=== PATIENT | female | born 1950 | race Caucasian/White ===

== ENCOUNTER 2019-05-09 14:01 | Outpatient (RCR) | payer MEDICARE, SELFPAY ==
[2019-05-09 14:27] LABS: INR 2.9; Prothrombin Time 29.2 Seconds (9.64-11.0)
== END 2019-08-07 23:59 | disposition home or self-care (01) ==
LOC: CHSLAB 14:01
PROVIDERS: PCP Internal Medicine; Visit Provider Internal Medicine
DX: I48.91 Unspecified atrial fibrillation (principal)
CPT/HCPCS: 36415; 85610

== ENCOUNTER 2020-09-27 10:01 | Outpatient (RCR) | payer MEDICARE, SELFPAY ==
[2020-09-27 10:34] LABS: INR 2.2; Prothrombin Time 22.4 Seconds (9.50-12.10)
== END 2020-12-26 23:59 | disposition home or self-care (01) ==
LOC: CHSLAB 10:01
PROVIDERS: PCP Internal Medicine; Visit Provider Internal Medicine
DX: I48.91 Unspecified atrial fibrillation (principal)
CPT/HCPCS: 36415; 85610

== ENCOUNTER 2020-10-02 09:44 | Outpatient (CLI) | payer OTHER, SELFPAY ==
--- NOTE | 2020-10-02 09:59 | ECHO_ITS ---
Patient Info Name: Cristine Quinonez Age: 70 years : 1950 Gender: Female Ht: 64 in Wt: 150 lbs BSA: 1.77 m2 HR: 66 bpm BP: 118 / 63 mmHg Heart Rhythm: Sinus Rhythm Technical Quality: Good Exam Date: 10/02/2020 10:01 AM Exam Location: [facility] Patient Status: Outpatient Admit Date: 10/02/2020 Staff Ordering Physician: Jaylen Sheth Flying [employer]i Instructor: Cnitia Clay RDCS Attending Provider: Jaylen Sheth Exam Type: CA echo doppler color flow Study Info Indications I49.9 - Cardiac arrhythmia, unspecified Complete two-dimensional, color flow and Doppler transthoracic echocardiogram is performed. Strain analysis performed. History/Risk Factors Hypertension: No Dyslipidemia: No Obesity: No Tobacco Use: Former DVT Treatment: Warfarin Deep Vein Thrombosis (DVT): None Frailty Scale (CSHA): 2: Well Summary 1. Complete two-dimensional, color flow and Doppler transthoracic echocardiogram is performed. 2. Left ventricular chamber dimension is normal. 3. Left ventricular systolic function is normal, estimated at 55-60%. 4. The left ventricular diastolic function is abnormal. 5. E/e' 44 is significantly elevated. 6. Global longitudinal strain is normal at -18.4%. 7. Left atrial chamber dimension is severely enlarged. 8. Right atrial chamber dimension is moderately enlarged. 9. There is mild aortic valve sclerosis. 10. There is mild aortic valve regurgitation. 11. The mitral valve has moderately calcified annulus. 12. There appears to be mild-moderate mitral valve stenosis by visual estimation and turbulent flow. However, valve area by PHT or VTI or mean gradients were not checked. 13. There is mild mitral valve regurgitation. 14. There is mild tricuspid valve regurgitation. 15. Mild pulmonary hypertension, estimated pulmonary arterial systolic pressure is 40 mmHg. Left Ventricle E/e' 44 is significantly elevated. Global longitudinal strain is normal at -18.4%. Left ventricular chamber dimension is normal. Left ventricular systolic function is normal, estimated at 55-60%. The left ventricular diastolic function is abnormal. Right Ventricle Right ventricular systolic function is normal and with normal TAPSE 2.1 cm. Right ventricular chamber dimension is normal. Left Atria Left atrial chamber dimension is severely enlarged. Right Atria Right atrial chamber dimension is moderately enlarged. Aortic Valve The aortic valve is trileaflet. There is mild aortic valve sclerosis. There is no aortic valve stenosis. There is mild aortic valve regurgitation. Pulmonic Valve There is no pulmonic regurgitation. Mitral Valve The mitral valve has moderately calcified annulus. There appears to be mild-moderate mitral valve stenosis by visual estimation and turbulent flow. However, valve area by PHT or VTI or mean gradients were not checked. Mitral valve with severely calcified leaflets. There is mild mitral valve regurgitation. Tricuspid Valve There is mild tricuspid valve regurgitation. Mild pulmonary hypertension, estimated pulmonary arterial systolic pressure is 40 mmHg. Pericardium/Pleural There is no pericardial effusion. Inferior Vena Cava Normal inferior vena cava with >50% collapse upon inspiration consistent with normal right atrial pressure, 5 mmHg. Aorta The aortic root size at the sinus of Valsalva is not well visualized. Left Ventricular Outflow Tract
== END 2020-10-02 09:45 | disposition home or self-care (01) ==
LOC: CHSIMG 09:45
PROVIDERS: PCP Internal Medicine
DX: I48.4 Atypical atrial flutter (principal)
CPT/HCPCS: 93306

== ENCOUNTER 2020-10-09 10:48 | Outpatient (CLI) | payer OTHER, SELFPAY ==
--- NOTE | ~2020-10-09 | MM_ITS ---
EXAMINATION: MM screening [facility] BI w marcy HISTORY: Screening TECHNIQUE: Craniocaudal and mediolateral oblique 3-D tomosynthesis images were obtained and synthetic 2-D images were generated. CAD analysis was submitted and interpreted. COMPARISON: Comparison to multiple prior studies sequentially, with oldest reviewed study dated 12/28. BREAST PARENCHYMAL COMPOSITION: Breast composed of scattered areas of fibroglandular density FINDINGS: There are benign bilateral breast calcifications. There is no evidence of suspicious mass, calcification, or architectural distortion to suggest malignancy in either breast. There has been no suspicious interval change. IMPRESSION: 1. No mammographic evidence of malignancy. 2. Recommend routine screening mammography in one year. BI-RADS Category 2: Benign finding(s). Reviewed, dictated and finalized at location A.
--- NOTE | ~2020-10-09 | DEXA_ITS ---
Bone Density Report Name: Cristine Quinonez Age: 70 Sex: Female Ethnicity: White Date of : 1950 Indication: postmenopausal; screening for osteoporosis; height loss; Referring Provider: Jan Nicole Study: Bone densitometry was performed. Exam Date: October 09, 2020 Accession number: [id number] Bone Density: Region BMD T-score Z-score Classification AP Spine(L1-L4) 0.972 -0.7 1.4 Normal Femoral Neck (Left) 0.640 -1.9 -0.1 Osteopenia Total Hip (Left) 0.694 -2.0 -0.6 Osteopenia Femoral Neck (Right) 0.604 -2.2 -0.4 Osteopenia Total Hip (Right) 0.665 -2.3 -0.8 Osteopenia Femoral Neck Mean 0.622 -2.0 -0.3 Osteopenia Total Hip Mean 0.680 -2.2 -0.7 Osteopenia World Health Organization criteria for BMD impression classify patients as: Normal (T-score at or above -1.0), Osteopenia (T-score between -1.0 and -2.5), or Osteoporosis (T-score at or below -2.5). 10-year Fracture Risk(1): Major Osteoporotic Fracture 12% Hip Fracture 2.4% Reported Risk Factors: [place] (), Neck BMD=0.604, BMI=28.0 (1) FRAX(R) Version 3.08. Fracture probability calculated for an untreated patient. Fracture probability may be lower if the patient has received treatment. Previous Exams: Region Exam Age BMD T-score BMD Change BMD Change Date g/cm2 vs Baseline vs Previous AP Spine (L1-L4) 10/09/2020 70 0.972 -0.7 -0.080 (-7.6%) -0.155 (-13.8% 11/23/2014 64 1.127 0.7 0.075 (7.1%)* 0.075 (7.1%)* 03/16/2008 57 1.052 0.0 Total Hip(Left) 10/09/2020 70 0.694 -2.0 -0.253 (-26.7% -0.203 (-22.6% 11/23/2014 64 0.897 -0.4 -0.051 (-5.3%) -0.051 (-5.3%) 03/16/2008 57 0.948 0.0 Total Hip(Right) 10/09/2020 70 0.665 -2.3 -0.202 (-23.3% -0.202 (-23.3% 03/16/2008 57 0.867 -0.6 *Denotes significance at 95% confidence level, LSC for AP Spine = 0.022 g/cm2, LSC for Total Hip = 0.027 g/cm2 # Denotes dissimilar scan types or analysis methods Clinical Information Provided by Patient: Patient maximum height was 63 No regular weight bearing exercise Does not regularly consume dairy products Drinks caffeinated beverages Onset of menses at age 13 Number of children 2 Impression: The patient has low bone mass, based on the Right Total Hip T-score. No significant bone loss was observed. Discussion: BONE DENSITY IS LOW AT ONE OR MORE SKELETAL SITES. This patient's lowest T-score is low at one or more ske
[2020-10-09 11:00] LABS: Hematocrit 43.1 % (35.0-42.0); Mean Corpuscular HGB Conc 34.8 g/dL (32.0-36.0); Mean Corpuscular Hemoglobin 31.8 pg (27.0-31.0); Mean Corpuscular Volume 91.3 fL (78.0-102.0); Mean Platelet Volume 9.8 fl (9.2-11.8); Platelet Count Result 302 K/mm3 (150-420); Red Blood Count 4.72 M/mm3 (4.20-5.40); Red Cell Distribution Width 12.1 % (11.6-14.4)
[2020-10-09 11:13] LABS: INR 1.9; Prothrombin Time 19.4 Seconds (9.50-12.10)
[2020-10-09 11:51] LABS: Band Neutrophils Percent 0 % (0-6); Basophils Percent Manual 0 % (0-1); Eosinophils Absolute Manual 0.22 K/mm3 (0.02-0.5); Eosinophils Percent Manual 2 % (1-6); Lymphocytes Absolute Manual 3.19 K/mm3 (1.1-4.5); Lymphocytes Percent Manual 29 % (18-44); Monocytes Absolute Manual 1.87 K/mm3 (0.1-0.90); Monocytes Percent Manual 17 % (3-9); Neutrophils Absolute Manual 5.72 K/mm3 (1.7-7.2); Neutrophils Percent Manual 52 % (46-73); Platelet Estimate Adequate (Adequate); Total Cells Counted 100
[2020-10-09 11:54] LABS: Alanine Aminotransferase 22 U/L (14-59); Albumin Level 3.7 g/dL (3.4-5.0); Alkaline Phosphatase 125 U/L (46-116); Anion Gap 13 mmol/L (8-16); Aspartate Amino Transferase 22 U/L (15-37); Bilirubin,Total 1.2 mg/dL (0.00-1.00); Blood Urea Nitrogen 14 mg/dL (7-18); Carbon Dioxide 26 mmol/L (21-32); Chloride 100 mmol/L (98-108); Estimated Glomerular Filt Rate 54; Glucose 95 mg/dL (70-99); Osmolality Calculated 288 mOsm/kg (285-295); Potassium 4.3 mmol/L (3.5-5.1); Sodium 139 mmol/L (136-145); Thyroid Stimulating Hormone 0.63 uIU/mL (0.36-3.74); Total Protein 7.3 g/dL (6.4-8.2)
== END 2020-10-09 10:49 | disposition home or self-care (01) ==
PROVIDERS: PCP Internal Medicine; Visit Provider Internal Medicine
DX: I48.91 Unspecified atrial fibrillation (principal); Z79.01 Long term (current) use of anticoagulants; Z12.31 Encounter for screening mammogram for malignant neoplasm of breast; M81.0 Age-related osteoporosis without current pathological fracture
CPT/HCPCS: 36415; 77063; 77067; 77080; 80053; 83735; 84443; 85025; 85610

== ENCOUNTER 2021-09-26 15:41 | Outpatient (RCR) | payer MEDICARE, SELFPAY ==
[2021-09-26 16:22] LABS: INR 1.9; Prothrombin Time 19.6 Seconds (9.50-12.10)
== END 2021-12-25 23:59 | disposition home or self-care (01) ==
LOC: CHSLAB 15:41
PROVIDERS: PCP Internal Medicine; Visit Provider Internal Medicine
DX: Z79.01 Long term (current) use of anticoagulants (principal)
CPT/HCPCS: 36415; 85610

== ENCOUNTER 2021-10-10 12:53 | Outpatient (CLI) | payer MEDICARE, SELFPAY ==
--- NOTE | ~2021-10-10 | MM_ITS ---
EXAMINATION: MM screening [facility] BI w [facility]cy HISTORY: Screening TECHNIQUE: Craniocaudal and mediolateral oblique 3-D tomosynthesis images were obtained and synthetic 2-D images were generated. CAD analysis was submitted and interpreted. COMPARISON: Comparison to multiple prior studies sequentially, with oldest reviewed study dated 12/28. BREAST PARENCHYMAL COMPOSITION: Breast composed of scattered areas of fibroglandular density FINDINGS: There are benign bilateral breast calcifications. There is no evidence of suspicious mass, calcification, or architectural distortion to suggest malignancy in either breast. There has been no suspicious interval change. IMPRESSION: 1. No mammographic evidence of malignancy. 2. Recommend routine screening mammography in one year. BI-RADS Category 1: Negative Reviewed, dictated and finalized at location A.
== END 2021-10-10 12:54 | disposition home or self-care (01) ==
LOC: CHSIMG 12:55
PROVIDERS: PCP Internal Medicine; Visit Provider Internal Medicine
DX: Z12.31 Encounter for screening mammogram for malignant neoplasm of breast (principal)
CPT/HCPCS: 77063; 77067

== ENCOUNTER 2022-03-13 12:20 | Outpatient (CLI) | payer MEDICARE, SELFPAY ==
--- NOTE | 2022-03-13 12:42 | ECG_ITS ---
Measurements Intervals [place] Rate: 76 P: 85 MI: 204 QRS: -76 QRSD: 140 T: 22 QT: 455 QTc: 515 Interpretive Statements SINUS RHYTHM RIGHT BUNDLE BRANCH BLOCK [120+ ms QRS DURATION, UPRIGHT V1, 40+ ms S IN I/aVL/V4/V5/V6] LEFT ANTERIOR FASCICULAR BLOCK [QRS AXIS <= -45, QR IN I, RS IN II] ABNORMAL ECG NO PREVIOUS ECG AVAILABLE FOR COMPARISON Electronically Signed On 03-13-2022 15:10:11 TRANSCRIPTION SPECIALIST by Shaheed Evans M.D.
[2022-03-13 12:54] LABS: INR 3.8; Prothrombin Time 37.4 Seconds (9.50-12.10)
== END 2022-03-13 12:21 | disposition home or self-care (01) ==
PROVIDERS: PCP Internal Medicine
DX: Z79.01 Long term (current) use of anticoagulants (principal); Z79.899 Other long term (current) drug therapy
CPT/HCPCS: 36415; 85610; 93005

== ENCOUNTER 2022-05-20 12:11 | Emergency (ER) | payer MEDICARE, SELFPAY ==
[2022-05-20] VITALS (48 sets, daily range): BP systolic 84–130; BP diastolic 55–102; PULSE 101–179; RESP 14–25; TEMP 36.3–37.1; O2SAT 95–100
--- NOTE | ~2022-05-20 | XR_ITS ---
EXAMINATION: XR chest 1V portable DATE: 05/20/2022 12:39 INDICATION: Shortness of breath. TECHNIQUE: A single frontal view of the chest was obtained. COMPARISON: Chest 2 views 05/06/2018 FINDINGS: There is a small right pleural effusion. There are airspace opacities at right lung base. T here is interstitial pattern, consistent with pulmonary edema. No pneumothorax. Cardiomegaly is noted . IMPRESSION: 1. Mild pulmonary edema. 2. Small right pleural effusion. 3. Airspace opacities at right lung base, consistent with atelectasis versus pneumonia. 4. Cardiomegaly. Reviewed, dictated and finalized at location A. UITMENT COORDINATOR IMPRESSION: 1. Mild pulmonary edema. 2. Small right pleural effusion. 3. Airspace opacities at right lung base, consistent with atelectasis versus pn eumonia. 4. Cardiomegaly.
--- NOTE | 2022-05-20 12:15 | ED.ARRPALP ---
HPI - Arrhythmia/Palpitations General Chief Complaint: Arrhythmia/Palpitations Stated Complaint: rapid heart rate Time Seen by Provider: 05/20/22 12:14 Source: patient Mode of arrival: ambulatory Limitations: no limitations History of Present Illness HPI narrative: 72-year-old female with a history of hereditary spherocytosis status post splenectomy, mitral stenosis secondary to rheumatic heart disease, status post percutaneous balloon mitral valvuloplasty in 2010, COPD, sleep apnea, depression,atrial fibrillation on Coumadin Status post multiple cardioversions, HFrEF with an EF of 40-45%, was transferred from the PCPs office for -- palpitation with a heart rate of 170. She was noted to have atrial fibrillation with rapid ventricular rate -- worsening shortness of breath over the past few days -- bilateral leg swelling denied any chest pain. No fever. MD complaint: rapid heart beat Onset (ago): day(s) Duration: constant Severity: moderate Context: occurred during rest Arrhythmia history: atrial fibrillation Associated symptoms: denies other symptoms Related Data Home Medications Medication Instructions Recorded Confirmed dofetilide 250 mcg capsule 250 mcg PO BID 05/20/22 05/20/22 metoprolol succinate 50 mg 50 mg PO BID 05/20/22 05/20/22 tablet,extended release 24 hr warfarin 1 mg tablet 0.5 mg PO HS 05/20/22 05/20/22 warfarin 4 mg tablet 4 mg PO HS 05/20/22 05/20/22 Allergies Allergy/AdvReac Type Severity Reaction Status Date / Time No Known Allergies Allergy Verified 05/20/22 12:31 Review of Systems Review of Systems: All systems reviewed & are unremarkable except as noted in HPI and below Constitutional: Constitutional: Reports as per HPI and Reports no additional constitutional complaints Eyes: Eyes: Reports as per HPI and Reports no additional eye complaints ENT: Reports system reviewed and no additional complaints, except as documented and Reports as per HPI Cardiovascular: Cardiovascular: Reports as per HPI, Reports no additional cardiovascular complaints and Reports rapid heart rate Respiratory: Respiratory: Reports as per HPI, Reports no additional respiratory complaints and Reports dyspnea Gastrointestinal: Gastrointestinal: Reports as per HPI and Reports no additional gastrointestinal complaints Genitourinary: Genitourinary: Reports no additional female genitourinary complaints and Reports as per HPI Musculoskeletal: Musculoskeletal: Reports no additional musculoskeletal complaints and Reports as per HPI Integumentary/Breasts: Skin/Breast: Reports system reviewed and no additional complaints, except as docu and Reports as per HPI Neurologic: Reports system reviewed and no additional complaints, except as documented and Reports as per HPI Psychiatric: Psychiatric: Reports no additional psychiatric complaints and Reports as per HPI Endocrine: Endocrine: Reports no additional endocrine complaints and Reports as per HPI Hematologic/Lymphatic: Hematologic/Lymphatic: Reports no additional hematologic/lymphatic complaints and Reports as per HPI Allergic/Immunologic: Allergic/Immunologic: Reports no additional allergic/immunologic complaints and Reports as per HPI [facility] Past Medical History Medical History Atrial fibrillation Surgical History Surgical History H/O splenectomy Exam Narrative: hypotensive with a systolic blood pressure of 76 and heart rate of 160. Const: General: ill appearing Orientation/consciousness: patient oriented x3 Limitations: no limitations HENMT: Head: normal to inspection Ears: external ears normal Face/Nose/Sinus: Normal external nose present Face and sinus: normal facial exam Mouth: Yes Normal oral and palatal mucosa present Throat: posterior oropharynx normal Eyes: Conjunctivae: conjunctivae normal Pupils: Equal, round and reactive pupi
--- NOTE | 2022-05-20 12:26 | ECG_ITS ---
Measurements Intervals [place] Rate: 163 P: [place]: 0 QRS: -76 QRSD: 130 T: 80 QT: 298 QTc: 492 Interpretive Statements ATRIAL FIBRILLATION WITH RAPID VENTRICULAR RESPONSE LEFT AXIS DEVIATION RIGHT BUNDLE BRANCH BLOCK LATERAL ST ABNORMALITY CONSIDER ISCHEMIA ABNORMAL ECG COMPARED TO ECG 03/13/2022 12:42:33 ATRIAL FIBRILLATION NOW PRESENT Electronically Signed On 05-20-2022 14:38:13 MASTER POLICE DETECTIVE by Ravi Becker M.D.
[2022-05-20] MEDS: AMIODARONE 150 MG/D5W 100 ML 150 MG/100 ML BAG 600 MG IV CONT (12:32)
[2022-05-20 12:36] LABS: Basophils Absolute Auto 0.05 K/mm3 (0.00-0.10); Basophils Percent Auto 0.6 % (0.0-1.0); Eosinophils Absolute Auto 0.03 K/mm3 (0.02-0.50); Eosinophils Percent Auto 0.4 % (1.0-6.0); Immature Granulocyte Absolute 0.04 K/mm3 (0.00-0.00); Immature Granulocyte Percent A 0.5 % (0.0-0.0); Lymphocytes Absolute Auto 1.95 K/mm3 (1.10-4.50); Lymphocytes Percent Auto 24.3 % (18.0-42.0); Mean Corpuscular HGB Conc 32.6 g/dL (32.0-36.0); Mean Corpuscular Hemoglobin 33.1 pg (27.0-31.0); Mean Corpuscular Volume 101.7 fL (78.0-102.0); Mean Platelet Volume 10.8 fl (9.2-11.8); Monocytes Percent Auto 12.5 % (2.0-11.0); Neutrophils Absolute Auto 4.9 K/mm3 (1.7-7.2); Neutrophils Percent Auto 61.7 % (50.0-70.0); Nucleated Red Blood Cells Absolute Auto 0.02 K/mm3 (0.00-0.00); Nucleated Red Blood Cells Perc 0.2 % (0-0.0); Platelet Count Result 235 K/mm3 (150-420); Red Blood Count 4.23 M/mm3 (4.20-5.40); Red Cell Distribution Width 15.5 % (11.6-14.4)
[2022-05-20 12:50] LABS: Lactic Acid Reflex 4.7 mmol/L (0.4-2.0)
[2022-05-20 12:52] LABS: Partial Thromboplastin Time 39.6 SEC (23.90-30.70); Prothrombin Time 70.2 Seconds (9.50-12.10)
[2022-05-20 12:53] LABS: INR 7.5
[2022-05-20 12:56] LABS: Alanine Aminotransferase 230 U/L (14-59); Alkaline Phosphatase 111 U/L (46-116); Anion Gap 10 mmol/L (8-16); Aspartate Amino Transferase 209 U/L (15-37); Bilirubin,Total 2.1 mg/dL (0.00-1.00); Blood Urea Nitrogen 19 mg/dL (7-18); Calcium 8.4 mg/dL (8.5-10.1); Carbon Dioxide 26 mmol/L (21-32); Chloride 101 mmol/L (98-108); Estimated CRCL calculation 31 ml/min; Estimated Glomerular Filt Rate 34; Glucose 150 mg/dL (70-99); NT Pro B Type Natriuretic Pept 8897 pg/mL (0-125); Osmolality Calculated 289 mOsm/kg (285-295); Potassium 3.7 mmol/L (3.5-5.1); Sodium 137 mmol/L (136-145); Thyroid Stimulating Hormone 1.13 uIU/mL (0.36-3.74); Total Protein 7.3 g/dL (6.4-8.2); Troponin I 9.7 ng/L (0.00-60.4)
[2022-05-20] MEDS: AMIODARONE 360 MG/D5W 200 ML 360 MG/200 ML BAG 33.33 MG IV CONT (13:11)
[2022-05-20] MEDS: DIGOXIN INJ 250 MCG/ML 2 ML AMP (*BKC) IV PUSH (13:53)
[2022-05-20 15:31] LABS: Reflex Lactic Acid Yes or No Add Lactic
[2022-05-20] MEDS: POTASSIUM CHLORIDE 20 MEQ TABLET PO (15:56)
[2022-05-20] MEDS: MAGNESIUM SULF 2 GM/WATER 50ML 2 GM/50 ML BAG IVPB (15:57)
--- NOTE | 2022-05-20 16:11 | PC.NURSE ---
pt resting per cot. family in and out throughout the day. call gonzalez in reach. pt denies pain .
[2022-05-20 16:31] LABS: Lactic Acid 2.2 mmol/L (0.4-2.0)
--- NOTE | 2022-05-26 12:11 | PC.NURSE ---
FINAL BLOOD CULTURE RESULTS X2 : NO GROWTH AFTER 5 DAYS
== END 2022-05-20 17:02 | disposition short-term general hospital (02) ==
PROVIDERS: Emergency Provider Internal Medicine Critical Care Medicine; PCP Internal Medicine
DX: I48.91 Unspecified atrial fibrillation (principal); R57.0 Cardiogenic shock; I50.9 Heart failure, unspecified; N17.9 Acute kidney failure, unspecified; K72.90 Hepatic failure, unspecified without coma; Z79.01 Long term (current) use of anticoagulants
CPT/HCPCS: 36415; 71045; 80053; 83605; 83880; 84443; 84484; 85025; 85610; 85730; 87040; 93005; 96365; 96366; 96367; 96375; 96376; 99285; A9270; J0282; J0696; J1160; J3475

== ENCOUNTER 2022-06-23 11:01 | Outpatient (CLI) | payer MEDICARE, SELFPAY ==
--- NOTE | ~2022-06-23 | CT_ITS ---
Non-contrast Head CT History: Cognitive impairment COMPARISON: 11/03/2018 Technique: Axial non-contrast imaging of the brain was performed. Dose reduction technique was used on this scan by utilizing automated exposure control and iterative reconstruction technique. The dose -length product (DLP) was 605.33 mGy-cm. Findings: There is no evidence of intracranial hemorrhage, mass lesion, or acute infarct. Brain par enchyma appears normal. The ventricles and subarachnoid spaces are normal in size. The calvarium ap pears normal. The visualized paranasal sinuses and mastoid air cells are clear. Impression: No significant abnormality seen. Reviewed, dictated and finalized at location . Impression: No significant abnormality seen.
== END 2022-06-23 11:02 | disposition home or self-care (01) ==
LOC: CHSIMG 11:03
PROVIDERS: PCP Internal Medicine; Visit Provider Internal Medicine
DX: G31.84 Mild cognitive impairment of uncertain or unknown etiology (principal)
CPT/HCPCS: 70450

== ENCOUNTER 2022-08-23 20:58 | Emergency (ER) | payer MEDICARE, SELFPAY ==
[2022-08-23] VITALS (19 sets, daily range): BP systolic 82–110; BP diastolic 52–91; PULSE 117–156; RESP 18–22; TEMP 37.1; O2SAT 90–95
--- NOTE | ~2022-08-23 | XR_ITS ---
Portable chest x-ray Comparison: None Clinical History: Shortness of breath Findings: Possible minimal bibasilar interstitial edema or minimal interstitial prominence related t o COPD. No consolidation or pleural effusion. Cardiomediastinal silhouette is stable. Bones and soft tissues are unremarkable. Impression: Minimal bibasilar interstitial prominence. Consider COPD or minimal interstitial edema. Reviewed, dictated and finalized at location . Impression: Minimal bibasilar interstitial prominence. Consider COPD or minimal interstitia l edema.
--- NOTE | 2022-08-23 21:06 | ECG_ITS ---
Measurements Intervals [place] Rate: 151 P: [place]: 0 QRS: -83 QRSD: 118 T: 0 QT: 284 QTc: 451 Interpretive Statements ATRIAL FIBRILLATION WITH RAPID VENTRICULAR RESPONSE LOW QRS VOLTAGE IN PRECORDIAL LEADS RIGHT BUNDLE BRANCH BLOCK LEFT ANTERIOR FASCICULAR BLOCK BASELINE ARTIFACT- V2 ABNORMAL ECG COMPARED TO ECG 05/20/2022 12:29:51 Electronically Signed On 08-24-2022 6:40:11 CDT by Collin Wiggins D.O.
[2022-08-23] MEDS: SODIUM CHLORIDE 0.9% IV 1,000 ML 999 ML IV CONT ×2 (21:14→22:49)
--- NOTE | 2022-08-23 21:23 | ED.GENADULT ---
HPI - General Adult General Chief complaint: Unspecified Stated complaint: Shortness of Breath/Dyspnea Time Seen by Provider: 08/23/22 21:10 History of Present Illness HPI narrative: the patient is a 72-year-old woman with history of hereditary spherocytosis status post splenectomy, atrial fibrillation status post multiple cardioversions, rheumatic heart disease resulting in mitral stenosis, status post balloon dilation of the mitral valve in 2020, CHF, depression, obstructive sleep apnea. She was seen here 05/20/2022 with an episode of atrial fibrillation with rapid ventricular response and congestive heart failure with acute kidney injury. Ejection fraction 40%. He was transferred to [facility] where she was cardioverted. This is her most recent cardioversion. She is currently on Tikosyn diltiazem and digoxin as well as warfarin. She is due to undergo surgical mitral valve replacement next month. For the last week, the patient has been feeling weak and tired with fatigue. For the last 2-3 days she has had a cough productive of green sputum. Low-grade temperature 100.7? tonight, spontaneously defervesced upon arrival. Shortness of breath. No chest pain or palpitations. No wheezing. No chills or diaphoresis. No nausea or vomiting. No abdominal pain. No urinary symptoms. She has taken her medications and has not missed doses. She has NOT taken her evening medications (which include her daily warfarin dose, BID tikosyn dose, BID diltiazem dose). Related Data Home Medications Medication Instructions Recorded Confirmed Vitamin B-12 1 mg PO DAILY 08/23/22 08/23/22 digoxin 125 mcg (0.125 mg) tablet 125 mcg PO DAILY 08/23/22 08/23/22 diltiazem HCl 180 mg 180 mg PO BID 08/23/22 08/23/22 capsule,extended release 24 hr dofetilide 125 mcg capsule 125 mcg PO BID 08/23/22 08/23/22 duloxetine 20 mg capsule,delayed 20 mg PO DAILY 08/23/22 08/23/22 release furosemide 40 mg tablet 40 mg PO DAILY 08/23/22 08/23/22 magnesium oxide 400 mg PO BID 08/23/22 08/23/22 potassium chloride 20 mEq 20 meq PO DAILY 08/23/22 08/23/22 tablet,extended release(part/cryst) warfarin 5 mg tablet 2.5 mg PO DAILY 08/23/22 08/23/22 Allergies Allergy/AdvReac Type Severity Reaction Status Date / Time No Known Allergies Allergy Verified 05/20/22 12:31 Review of Systems Review of Systems: All systems reviewed & are unremarkable except as noted in HPI and below Constitutional: Constitutional: Denies chills, Denies excessive sweating, Reports fatigue, Reports fever(s), Denies headache(s), Reports malaise and Reports weakness Eyes: Eyes: Denies change in vision and Denies photophobia ENT: Denies dysphagia, Denies dizziness, Denies headache(s), Denies lip swelling, Denies nasal congestion, Denies sore throat and Denies tongue swelling Cardiovascular: Cardiovascular: Denies chest pain, Denies syncope, Denies rapid heart rate and Reports dyspnea Respiratory: Respiratory: Reports cough, Reports dyspnea and Reports wheezing Gastrointestinal: Gastrointestinal: Denies abdominal pain, Denies constipation, Denies dysphagia, Denies diarrhea, Denies nausea and Denies vomiting Genitourinary: Genitourinary: Denies hematuria, Denies urinary frequency, Denies dysuria and Denies urinary urgency Musculoskeletal: Musculoskeletal: Denies back pain, Denies myalgias, Denies arthralgias, Denies joint swelling and Denies numbness Integumentary/Breasts: Skin/Breast: Denies pruritus, Denies erythema and Denies rash Neurologic: Denies confusion, Denies dizziness, Denies syncope, Denies headache(s), Denies focal weakness, Denies numbness and Reports weakness Psychiatric: Psychiatric: Denies anxiety and Denies confusion Endocrine: Endocrine: Denies excessive sweating and Denies fatigue Hematologic/Lymphatic: Hematologic/Lymphatic: Denies easy bleeding and Denies easy bruising Allergic/Immunologic: Allergic/Immunologic: Denies lip swelling, Denies tongue swelling
[2022-08-23] MEDS: dilTIAZem HCl INJ 25 MG/5 ML VIAL 5 MG IV PUSH (21:37)
[2022-08-23] MEDS: dilTIAZem 100 MG/100 ML 100 MG/100 ML BAG IV CONT (21:41)
[2022-08-23] MEDS: MAGNESIUM SULF 2 GM/WATER 50ML 2 GM/50 ML BAG IVPB (21:41)
[2022-08-23 22:17] LABS: Hematocrit 39.7 % (35.0-42.0); Hemoglobin 13.7 g/dL (11.7-13.8); Mean Corpuscular HGB Conc 34.5 g/dL (32.0-36.0); Mean Corpuscular Hemoglobin 31.1 pg (27.0-31.0); Mean Corpuscular Volume 90.2 fL (78.0-102.0); Mean Platelet Volume 10.4 fl (9.2-11.8); Platelet Count Result 410 K/mm3 (150-420); Red Cell Distribution Width 12.7 % (11.6-14.4)
[2022-08-23 22:34] LABS: White Blood Count 31.7 K/mm3 (4.8-10.8)
[2022-08-23 22:37] LABS: Lactic Acid Reflex 1.5 mmol/L (0.4-2.0)
--- NOTE | 2022-08-23 22:41 | PC.NURSE ---
Dr. Gaviria made aware of pt BP after titrating diltiazem up to 10mg/hr. Pt also c/o KIM. Verbal orders to decrease back to 5mg/hr and give the pt 1L NS as well as 650mg tylenol
[2022-08-23] MEDS: ACETAMINOPHEN 325 MG TABLET 650 MG PO (22:48)
[2022-08-23 22:49] LABS: Partial Thromboplastin Time 58.1 SEC (23.90-30.70); Prothrombin Time 38.9 Seconds (9.50-12.10)
[2022-08-23 22:50] LABS: Alanine Aminotransferase 14 U/L (14-59); Albumin Level 2.6 g/dL (3.4-5.0); Alkaline Phosphatase 99 U/L (46-116); Anion Gap 10 mmol/L (8-16); Aspartate Amino Transferase 19 U/L (15-37); Bilirubin,Total 1.5 mg/dL (0.00-1.00); Blood Urea Nitrogen 11 mg/dL (7-18); Calcium 8.1 mg/dL (8.5-10.1); Carbon Dioxide 26 mmol/L (21-32); Chloride 97 mmol/L (98-108); Estimated CRCL calculation 36 ml/min; Estimated Glomerular Filt Rate 47; Glucose 93 mg/dL (70-99); Magnesium 1.7 mg/dL (1.8-2.4); NT Pro B Type Natriuretic Pept 1552 pg/mL (0-125); Osmolality Calculated 275 mOsm/kg (285-295); Sodium 133 mmol/L (136-145); Total Protein 6.9 g/dL (6.4-8.2); Troponin I 9.7 ng/L (0.00-60.4)
[2022-08-23 22:51] LABS: CRP 14.3 mg/dL (0.0-0.9)
[2022-08-23 22:52] LABS: Thyroid Stimulating Hormone Reflex 0.25 u/IU/mL (0.36-3.74)
[2022-08-23 23:02] LABS: Influenza A QL RT-PCR Negative (Negative); Influenza B QL RT-PCR Negative (Negative); SARS-CoV-2 RNA PCR Negative (Negative)
[2022-08-23 23:03] LABS: RSV RNA, RT-PCR Negative (Negative)
[2022-08-23 23:12] LABS: Band Neutrophils Percent 0 % (0-6); Basophils Absolute Manual 0.31 K/mm3 (0-0.1); Basophils Percent Manual 1 % (0-1); Lymphocytes Absolute Manual 2.21 K/mm3 (1.1-4.5); Lymphocytes Percent Manual 7 % (18-44); Monocytes Absolute Manual 3.48 K/mm3 (0.1-0.90); Monocytes Percent Manual 11 % (3-9); Neutrophils Absolute Manual 25.67 K/mm3 (1.7-7.2); Neutrophils Percent Manual 81 % (46-73); Platelet Estimate Adequate (Adequate); Schistocytes None Seen (NORMAL); Total Cells Counted 100
[2022-08-23 23:25] LABS: Erythrocyte Sedimentation Rate 47 mm/hr (0-20)
[2022-08-23 23:47] LABS: Appearance Urine Clear (Clear); Bilirubin Urine Negative (Negative); Blood Urine Negative (Negative); Color Urine Yellow (Yellow); Glucose Urine UA Negative (Negative); Ketones Urine Negative (Negative); Leukocyte Esterase Ur 1+ LEU/UL (Negative); Nitrate Urine Negative (Negative); Protein Urine Negative (Negative); pH Urine 7.5 (5.0-8.0)
[2022-08-23] MEDS: CEFEPIME 2 GM/NS 50 ML 2 GM/50 ML BAG IVPB (23:48)
[2022-08-23] MEDS: AMIODARONE 150 MG/D5W 100 ML 150 MG/100 ML BAG 600 MG IV CONT (23:48)
[2022-08-23] MEDS: AMIODARONE 360 MG/D5W 200 ML 360 MG/200 ML BAG 33.33 MG IV CONT (23:49)
[2022-08-23 23:53] LABS: Add Urine Microscopic? YES
[2022-08-23 23:54] LABS: Bacteria Urine 1+ /hpf; Squamous Epithelial Cell Urine Many /hpf (Few)
[2022-08-24 00:01] VITALS: BP 93/66; PULSE 112; PULSE 114; RESP 19; O2SAT 92
[2022-08-24 00:15] VITALS: BP 93/66; PULSE 111; RESP 16; TEMP 36.7; O2SAT 92
[2022-08-24 00:31] VITALS: BP 101/52; PULSE 107; RESP 18; O2SAT 92
[2022-08-24] MEDS: SODIUM CHLORIDE 0.9% IV 1,000 ML 100 ML IV CONT (00:32)
[2022-08-24] MEDS: DOXYCYCLINE IV 100 MG in DEXTROSE 5% 100 ML IVPB (00:32)
[2022-08-24 01:28] VITALS: BP 110/68; PULSE 103; RESP 19; O2SAT 92
[2022-08-24 01:31] VITALS: BP 99/52; PULSE 113; RESP 20; O2SAT 92
--- NOTE | 2022-08-24 01:31 | PC.NURSE ---
[facility] called to inform that they are unable to transport the pt 2/2 having issues with their rig. [facility] called and agree to transport the pt.
[2022-08-24 02:10] VITALS: BP 99/56; PULSE 104; RESP 20; TEMP 36.4; O2SAT 93
--- NOTE | 2022-08-26 18:22 | PC.NURSE ---
abnormal blood culture results called to dr martínez. states aware and pt was admitted to [facility]. call to [facility] spoke with james at intake transfer center, instructed to fax to [phone] and she would scan into chart. fax completed as directed.
--- NOTE | 2022-09-24 11:24 | PC.NURSE ---
FINAL URINE CULTURE RESULTS: MIXED GENITAL ALFRED ISOLATED. NO ACTION NEEDED PER DR SORIANO.
== END 2022-08-24 02:12 | disposition short-term general hospital (02) ==
PROVIDERS: Emergency Provider Emergency Medicine; PCP Internal Medicine
DX: I48.20 Chronic atrial fibrillation, unspecified (principal); J18.9 Pneumonia, unspecified organism; E83.42 Hypomagnesemia; D68.32 Hemorrhagic disorder due to extrinsic circulating anticoagulants; I50.9 Heart failure, unspecified; Z79.01 Long term (current) use of anticoagulants; Z20.822 Contact with and (suspected) exposure to COVID-19; Z79.899 Other long term (current) drug therapy
CPT/HCPCS: 36415; 71045; 80053; 80162; 81001; 83605; 83735; 83880; 84439; 84443; 84484; 85025; 85610; 85652; 85730; 86140; 87040; 87086; 87088; 87147; 87637; 93005; 96361; 96365; 96366; 96367; 96375; 99285; A9270; J0282; J0692; J3475; J7030

== ENCOUNTER 2022-09-02 13:56 | Outpatient (CLI) | payer MEDICARE, SELFPAY ==
--- NOTE | ~2022-09-02 | XR_ITS ---
Clinical Indication: Pneumonia PA and lateral views of the chest: Comparison: 08/23/2022 Findings: The lungs are clear, without evidence of focal consolidation or pleural effusion. Probable COPD. Cardiomediastinal silhouette is within normal limits. Bones and soft tissues are unremarkable. Impression: Probable COPD. Clear lungs. Reviewed, dictated and finalized at location . Impression: Probable COPD. Clear lungs.
[2022-09-02 14:12] LABS: Basophils Absolute Auto 0.09 K/mm3 (0.00-0.10); Eosinophils Absolute Auto 0.08 K/mm3 (0.02-0.50); Eosinophils Percent Auto 0.9 % (1.0-6.0); Hematocrit 40.4 % (35.0-42.0); Hemoglobin 13.5 g/dL (11.7-13.8); Immature Granulocyte Absolute 0.02 K/mm3 (0.00-0.00); Immature Granulocyte Percent A 0.2 % (0.0-0.0); Lymphocytes Absolute Auto 3.68 K/mm3 (1.10-4.50); Lymphocytes Percent Auto 40.8 % (18.0-42.0); Mean Corpuscular HGB Conc 33.4 g/dL (32.0-36.0); Mean Corpuscular Hemoglobin 30.5 pg (27.0-31.0); Mean Corpuscular Volume 91.4 fL (78.0-102.0); Mean Platelet Volume 9.6 fl (9.2-11.8); Monocytes Absolute Auto 0.95 K/mm3 (0.10-0.90); Monocytes Percent Auto 10.5 % (2.0-11.0); Neutrophils Absolute Auto 4.2 K/mm3 (1.7-7.2); Neutrophils Percent Auto 46.6 % (50.0-70.0); Platelet Count Result 418 K/mm3 (150-420); Red Blood Count 4.42 M/mm3 (4.20-5.40); Red Cell Distribution Width 13.2 % (11.6-14.4)
[2022-09-02 14:25] LABS: INR 3.5; Prothrombin Time 34.7 Seconds (9.50-12.10)
[2022-09-02 15:10] LABS: Alanine Aminotransferase 17 U/L (14-59); Albumin Level 3.3 g/dL (3.4-5.0); Alkaline Phosphatase 108 U/L (46-116); Anion Gap 9 mmol/L (8-16); Aspartate Amino Transferase 20 U/L (15-37); Bilirubin,Total 0.7 mg/dL (0.00-1.00); Blood Urea Nitrogen 10 mg/dL (7-18); Calcium 9.3 mg/dL (8.5-10.1); Carbon Dioxide 29 mmol/L (21-32); Chloride 102 mmol/L (98-108); Estimated Glomerular Filt Rate 42; Glucose 107 mg/dL (70-99); NT Pro B Type Natriuretic Pept 2309 pg/mL (0-125); Osmolality Calculated 289 mOsm/kg (285-295); Potassium 4.4 mmol/L (3.5-5.1); Sodium 140 mmol/L (136-145); Total Protein 7.6 g/dL (6.4-8.2)
== END 2022-09-02 13:57 | disposition home or self-care (01) ==
LOC: CHSLAB 13:58
PROVIDERS: PCP Internal Medicine; Visit Provider Internal Medicine
DX: I48.91 Unspecified atrial fibrillation (principal); J18.9 Pneumonia, unspecified organism; Z79.01 Long term (current) use of anticoagulants; I50.9 Heart failure, unspecified
CPT/HCPCS: 36415; 71046; 80053; 83880; 85025; 85610

== ENCOUNTER 2022-10-09 12:55 | Outpatient (CLI) | payer MEDICARE, SELFPAY ==
[2022-10-09 13:32] LABS: INR 1.5; Prothrombin Time 15.6 Seconds (9.50-12.10)
== END 2022-10-09 12:56 | disposition home or self-care (01) ==
LOC: CHSLAB 13:00
PROVIDERS: PCP Internal Medicine
DX: I48.91 Unspecified atrial fibrillation (principal); R79.1 Abnormal coagulation profile; Z98.890 Other specified postprocedural states
CPT/HCPCS: 36415; 85610

== ENCOUNTER 2022-12-07 09:18 | Outpatient (RCR) | payer MEDICARE, SELFPAY ==
[2022-12-07 10:07] LABS: INR 3.4
== END 2022-12-07 09:19 | disposition home or self-care (01) ==
LOC: CHSLAB 09:18
PROVIDERS: PCP Internal Medicine
DX: Z51.81 Encounter for therapeutic drug level monitoring (principal); Z98.890 Other specified postprocedural states
CPT/HCPCS: 36415; 85610

== ENCOUNTER 2022-12-16 09:23 | Outpatient (RCR) | payer MEDICARE, SELFPAY ==
[2022-10-13 12:37] LABS: INR 2.3; Prothrombin Time 23.5 Seconds (9.50-12.10)
[2022-10-16 14:07] LABS: INR 2.5; Prothrombin Time 25.9 Seconds (9.50-12.10)
[2022-10-27 09:06] LABS: INR 1.7; Prothrombin Time 17.8 Seconds (9.50-12.10)
[2022-11-02 09:46] LABS: INR 2.3; Prothrombin Time 23.4 Seconds (9.50-12.10)
[2022-11-09 13:32] LABS: Prothrombin Time 57.2 Seconds (9.64-11.0)
[2022-11-09 13:48] LABS: INR 5.9
[2022-11-12 10:26] LABS: INR 1.5; Prothrombin Time 16.4 Seconds (9.50-12.10)
[2022-11-18 17:20] LABS: INR 1.9; Prothrombin Time 19.8 Seconds (9.50-12.10)
[2022-11-24 13:40] LABS: INR 1.9; Prothrombin Time 19.7 Seconds (9.50-12.10)
[2022-11-27 09:01] LABS: INR 2.4; Prothrombin Time 24.5 Seconds (9.50-12.10)
[2022-12-02 10:45] LABS: Prothrombin Time 30.3 Seconds (9.50-12.10)
[2022-12-16 10:59] LABS: INR 1.4; Prothrombin Time 14.6 Seconds (9.50-12.10)
== END 2023-01-11 23:59 | disposition home or self-care (01) ==
LOC: CHSLAB 09:23
PROVIDERS: PCP Internal Medicine
DX: Z48.89 Encounter for other specified surgical aftercare (principal); Z98.890 Other specified postprocedural states
CPT/HCPCS: 36415; 85610

== ENCOUNTER 2023-02-25 09:00 | Outpatient (CLI) | payer MEDICARE, SELFPAY ==
[2023-02-25 09:21] LABS: Basophils Percent Auto 1.2 % (0.0-1.0); Eosinophils Absolute Auto 0.12 K/mm3 (0.02-0.50); Eosinophils Percent Auto 1.4 % (1.0-6.0); Hematocrit 34.1 % (35.0-42.0); Hemoglobin 10.4 g/dL (11.7-13.8); Immature Granulocyte Absolute 0.02 K/mm3 (0.00-0.00); Immature Granulocyte Percent A 0.2 % (0.0-0.0); Lymphocytes Absolute Auto 2.28 K/mm3 (1.10-4.50); Lymphocytes Percent Auto 26.7 % (18.0-42.0); Mean Corpuscular HGB Conc 30.5 g/dL (32.0-36.0); Mean Corpuscular Hemoglobin 27.1 pg (27.0-31.0); Mean Corpuscular Volume 88.8 fL (78.0-102.0); Mean Platelet Volume 9.3 fl (9.2-11.8); Monocytes Absolute Auto 1.09 K/mm3 (0.10-0.90); Monocytes Percent Auto 12.8 % (2.0-11.0); Neutrophils Absolute Auto 4.9 K/mm3 (1.7-7.2); Neutrophils Percent Auto 57.7 % (50.0-70.0); Platelet Count Result 379 K/mm3 (150-420); Red Blood Count 3.84 M/mm3 (4.20-5.40); Red Cell Distribution Width 16.6 % (11.6-14.4); White Blood Count 8.5 K/mm3 (4.8-10.8)
[2023-02-25 09:33] LABS: Prothrombin Time 10.8 Seconds (9.50-12.10)
[2023-02-25 10:00] LABS: Alanine Aminotransferase 46 U/L (14-59); Albumin Level 3.1 g/dL (3.4-5.0); Alkaline Phosphatase 165 U/L (46-116); Anion Gap 7 mmol/L (8-16); Aspartate Amino Transferase 42 U/L (15-37); Bilirubin,Total 0.4 mg/dL (0.00-1.00); Blood Urea Nitrogen 18 mg/dL (7-18); Calcium 8.7 mg/dL (8.5-10.1); Carbon Dioxide 29 mmol/L (21-32); Chloride 101 mmol/L (98-108); Estimated Glomerular Filt Rate 41; Glucose 106 mg/dL (70-99); NT Pro B Type Natriuretic Pept 766 pg/mL (0-125); Osmolality Calculated 285 mOsm/kg (285-295); Potassium 3.9 mmol/L (3.5-5.1); Sodium 137 mmol/L (136-145); Total Protein 6.8 g/dL (6.4-8.2)
== END 2023-02-25 09:01 | disposition home or self-care (01) ==
PROVIDERS: PCP Internal Medicine; Visit Provider Internal Medicine
DX: I50.9 Heart failure, unspecified (principal); Z79.01 Long term (current) use of anticoagulants; Z98.890 Other specified postprocedural states
CPT/HCPCS: 36415; 80053; 83880; 85025; 85610

== ENCOUNTER 2023-02-27 11:49 | Outpatient (RCR) | payer MEDICARE, SELFPAY ==
[2023-02-27 13:07] LABS: Prothrombin Time 11.4 Seconds (9.50-12.10)
== END 2023-05-28 23:59 | disposition home or self-care (01) ==
LOC: CHSLAB 11:49
PROVIDERS: PCP Internal Medicine
DX: Z48.812 Encounter for surgical aftercare following surgery on the circulatory system (principal); Z98.890 Other specified postprocedural states
CPT/HCPCS: 36415; 85610

== ENCOUNTER 2023-03-17 09:30 | Outpatient (RCR) | payer MEDICARE, SELFPAY ==
--- NOTE | 2022-11-18 13:20 | PCCPR ---
1320 Pt arrived this afternoon for admission to phase 2 cardiac rehab. Placed on telemetry and noted HR in 140's with irregularly regular rhythm, report noted ectopic atrial tachycardia and RBB. assisted living executive director Dr. Wiggins notified, pt MD Dr. Kimberley Swanson sent EKG and notified. Dr. Swanson nurse recommended to call Dr. Ribera, patients electrophysiology manager cardiac for further recommendations. Call placed. Voicemail left with answering service. Call returned by nurse Lacy and states received EKG and will review with Dr. Ribera as soon as he is done with another patient and will call back with instruction.
--- NOTE | 2022-11-18 13:26 | ECG_ITS ---
Measurements Intervals [place] Rate: 130 P: 268 [place]: 181 QRS: -77 QRSD: 146 T: 81 QT: 343 QTc: 505 Interpretive Statements Atrial fibrillation with rapid ventricular response RIGHT BUNDLE BRANCH BLOCK [120+ ms QRS DURATION, UPRIGHT V1, 40+ ms S IN I/aVL/V4/V5/V6] LEFT AXIS DEVIATION ABNORMAL ECG Electronically Signed On 11-18-2022 15:34:35 CDT by Shaheed Evans M.D.
--- NOTE | 2022-11-18 14:15 | PCCPR ---
[address] return call from Dr[address] Ribera yet. Dr. Wiggins recommends that patient be seen in ER. Pt aware of recommendation, however, would like to wait 1 hour to hear back from Dr. Ribera, and if she doesn't hear back by 3:30pm, her daughter, Brinda (present and with patient), will bring her back to the ER. Pt discharged with daughter from cardiac rehab department at this time.
--- NOTE | 2022-11-25 09:40 | PCCPR ---
Addendum entered by Deepthi Adams RN 11/25/22 13:37: Patient released from department, daughter Brinda contacted and updated on patient status. Original Note: Medical release was received from Dr. Kimberley Swanson for patient to return to cardiac rehab today. Per Dr. Wiggins, pt allowed to participate if HR is WNL. Telemetry placed on pt arrival, pt noted to again be in Afib w/RVR with resting heart rate 140's - 150's. Pt reports feeling asymptomatic, I can't even tell that anything is different. Pt sat and rested and participated in education today. Monitored for 22 minutes. HR remained elevated. Pt arrhythmia being managed by Dr. Ribera and is scheduled for EDU cardioversion on 2022. Notification sent to Dr. Swanson. Will re-assess patient again on next scheduled visit, Wednesday.
== END 2023-03-17 13:59 | disposition home or self-care (01) ==
PROVIDERS: PCP Internal Medicine
DX: Z95.2 Presence of prosthetic heart valve (principal); I45.10 Unspecified right bundle-branch block
CPT/HCPCS: 36415; 85610; 93005; 93798

== ENCOUNTER 2023-05-25 09:30 | Outpatient (RCR) | payer SELFPAY | END 2023-06-07 08:31 | disposition home or self-care (01) | LOC: CHSCPRIII 09:30 | PROVIDERS: PCP Internal Medicine; Visit Provider Internal Medicine | DX: Z95.2 Presence of prosthetic heart valve (principal) | CPT/HCPCS: 99199 ==

== ENCOUNTER 2023-09-04 11:55 | Outpatient (CLI) | payer MEDICARE, SELFPAY ==
[2023-09-04 12:26] LABS: Prothrombin Time 11.2 Seconds (9.50-12.1)
== END 2023-09-04 11:56 | disposition home or self-care (01) ==
PROVIDERS: PCP Internal Medicine
DX: A04.8 Other specified bacterial intestinal infections (principal); Z98.890 Other specified postprocedural states
CPT/HCPCS: 36415; 85610

== ENCOUNTER 2023-09-09 10:29 | Outpatient (CLI) | payer MEDICARE, SELFPAY | END 2023-09-09 10:30 | disposition home or self-care (01) | LOC: CHSLAB 10:32 | PROVIDERS: PCP Internal Medicine | DX: A04.8 Other specified bacterial intestinal infections (principal) | CPT/HCPCS: 87338 ==

== ENCOUNTER 2024-05-22 11:32 | Outpatient (CLI) | payer MEDICARE, SELFPAY ==
--- OUTSIDE RECORDS SUMMARY | 2024-05-22 12:18 | XMS_ITS | Encounter Summary ---
Author Organization [facility] Address [address] [place] [address] Care Team Providers Care Teacher Of Gifted Students Name Role Phone Jan Nicole MD Primary Care Provider [phone] Sadie Ribera MD Unavailable Triston Posey MD Unavailable UnavailSangeeta Herr AGADAYDAY- Unavailable [phone] Bri Ugarte MD Unavailable Unavailabl Melina Garcia MD Unavailable Millie Vilchis NP Unavailable [phone] Encounter Details Date Type Department Care Team (Late st Contact Info) Description 09/10/2022 Prep for Procedure [facility] [address] [place] [address] Len Swanson MD [address] [place] [address] Social History Tobacco Use Types Packs/Day Years Used Date Smoking Tobacco: Former Cigarettes 0 - 2005 Smokeless Tobacco: Never Alcohol Use Standard Drinks/Week Comments Yes 0 (1 standard drink = 0.6 oz pur e alcohol) Humiliation, Afraid, Rape, and Kick questionnair e Answer Date Recorded Within the last year, have y ou been afraid of your partner or ex-partner? No 08/24/2022 Within the last year, have y ou been humiliated or emotionally abused in other ways by your partner or ex-partner? No Within the last year, have y ou been kicked, hit, slapped, or otherwise physically hurt by your partner or ex-partner? No 08/24/2022 Within the last year, have y ou been raped or forced to have any kind of sexual activity by your partner or ex-partner? No 08/24/2022 Social Connection and Isolat ion Panel [NHANES] Answer Date Recorded In a typical week, how many times do you talk on the phone with family, friends, or neighbors? More than three times a week 08/24/2022 How often do you get togethe r with friends or relatives? More than three times a week 08/24/2022 How often do you attend formerly [facility] or denominational services? 1 to 4 times per year 08/24/2022 Do you belong to any clubs o r organizations such as denominational groups, unions, fraternal or athletic groups, or school groups? No 08/24/2022 How often do you attend meet ings of the clubs or organizations you belong to? Never 08/24/2022 Are you , , di vorced, , never , or living with a partner? 08/24/2022 AUDIT-C Answer Date Recorded Q1: How often do you have a drink containing alc ohol? Monthly or less 08/24/2022 Q2: How many drinks containi ng alcohol do you have on a typical day when you are drinking? 1 or 2 08/24/2022 Q3: How often do you have si x or more drinks on one occasion? Never 08/24/2022 Overall Financial Resource Strain (CARDIA) Answe r Date Recorded How hard is it for you to pa y for the very basics like food, housing, medical care, and heating? Not hard at all 08/24/2022 [facility] [place] of Occupat ional Health - Occupational Stress Questionnaire Answer Date Recorded Do you feel stress - tense, restless, nervous, or anxious, or unable to sleep at night because your mind is troubled all the time - these days? Not at all 08/24/2022 Hunger Vital Sign Answer Date Recorded Within the past 12 months, y ou worried that your food would run out before you got the money to buy more. Never true 08/25/19 23 Within the past 12 months, t he food you bought just didn't last and you didn't have money to get more. Never true 08/24/2022 PRAPARE - Transportation Answer Date Re corded In the past 12 months, has l ack of transportation kept you from medical appointments or from getting medications? No 08/10 In the past 12 months, has l ack of transportation kept you from meetings, work, or from getting things needed for daily living? No 08/24/2022 Housing Stability Vital Sign Answer Kevin e Recorded In the last 12 months, was t here a time when you were not able to pay the mortgage or rent on time? No 08/24/2022 In the last 12 months, how many places have you lived? 1 08/24/2022 In the last 12 months, was t here a time when you did not have a steady place to sleep or slept in a [facility] (including now)? No 08/24/2022 Comments Unknown Sex and Gender Information Value Date Recorded Sex Assigned at Female 05/03/2024 7:48 AM TERRAZZO GRINDER Legal Sex Female 1:16 AM CDT Gender Identity Not on file Sexual Orientation Not on file Occupation Industry Job Start Date Job End Date Doesnt work Not on file Not on file Not on file Not on file Not on file Not on file Not on file COVID-19 Exposure Response Date Recorded In the last 10 days, have yo u been in contact with someone who was confirmed or suspected to have Coronavirus/COVID-19? No / Unsure 08/24/2022 3:33 AM CDT documented as of this encounter Functional Status * Are you deaf or do you have serious difficulty hearing Answer Date of Assessment Author Status No 08/24/2022 3:00 AM CDT Gabby Bess, RN Active * Are you blind or do you have serious difficulty seeing, even when wearing glasses? Answer Date of Assessment Author Status No 08/24/2022 3:00 AM CDT Gabby Bess, RN Active * Do you have serious difficulty walking or climbing stairs? Answer Date of Assessment Author Status No 08/24/2022 3:00 AM CDT Gabby Bess RN Active * Do you have difficulty dressing or bathing? Answer Date of Assessment Author Status No 08/24/2022 3:00 AM AURORAT Gabby Bess, RN Active * Because of a physical, mental, or emotional condition, do you have difficulty doing errands alone such as visiting a doctor's office or shopping? Answer Date of Assessment Author Status No 08/24/2022 3:00 AM Gabby Pineda, RN Active documented as of this encounter Mental Status * Because of a physical, mental, or emotional condition, do you have serious difficulty concentrating, remembering, or making decisions? Answer Entry Date Author Status No 08/24/2022 3:00 AM Gabby Pineda, RN Active documented in this encounter Plan of Treatment Upcoming Encounters Date Type Department Care Team (Late st Contact Info) Description 03/01/2025 1:15 PM TERRAZZO GRINDER Office Visit [facility] [address] [address] Melina Mclean MD [address] [place], [place] [phone] documented as of this encounter Goals Goal Patient Goal Type Associated Problems Recent Progress Patient-Stated? Author Safety Patient/family will have appropriate support at home upon discharge Lifestyle No Suyapa Godwin RN documented as of this encounter Visit Diagnoses Not on filedocumented in this encounter Care Teams Teacher Of Gifted Students Relationship Specialty Start Date End Date Jan Nicole MD [address] [place] [address] PCP - General INTERNAL MEDICINE 10/18/15 Sadie Ribera MD [address] [place] [address] CLINICAL CARDIAC ELECTROPHYSIOLOGY 10/18/15 Triston Posey MD [address] [place] [address] CARDIOVASCULAR DISEASE 10/18/[address] [facility] [facility] [address] [place] [phone] [employer] Operator NURSE PRACTITIONER 08/03/16 07/06/23 Bri Ugarte MD [address] [place] [phone] Consulting Physician CARDIOVASCULAR DISEASE 05/11/2307/05 Melina Mclean MD [address] [place] [address] Consulting Physician CARDIOVASCULAR DISEASE 07/07/23 Millie Vilchis NP [address] [place] [address] [address] [place] [address] Nurse Practitioner Nurse Practitioner Acute Care 05/15/24 documented as of this encounter
--- OUTSIDE RECORDS SUMMARY | 2024-05-22 12:18 | XMS_ITS | Encounter Summary ---
Author Organization [facility] Address [address] [place] [address] Care Team Providers Care Stagecraft Professor Name Role Phone Jan Nicole MD Primary Care Provider [phone] Sadie Ribera MD Unavailable Triston Posey MD Unavailable UnavailSangeeta Herr [facility] Unavailable [phone] Bri Ugarte MD Unavailable Unavailabl Melina Garcia MD Unavailable Millie Vilchis NP Unavailable [phone] Encounter Details Date Type Department Care Team (Late st Contact Info) Description 09/28/2022 Hospital Follow-up Call [facility] [address] [place] [address] Ana Wright, RN Social History Tobacco Use Types Packs/Day Years Used Date Smoking Tobacco: Every Day Cigarettes 1 55.1 Started: 1969 Smokeless Tobacco: Never Comments:Smoked from 1969 to 2005, restarted 2019 Alcohol Use Standard Drinks/Week Comments Yes 0 (1 standard drink = 0.6 oz pur e alcohol) Humiliation, Afraid, Rape, and Kick questionnair e Answer Date Recorded Within the last year, have y ou been afraid of your partner or ex-partner? No 09/21/2022 Within the last year, have y ou been humiliated or emotionally abused in other ways by your partner or ex-partner? No Within the last year, have y ou been kicked, hit, slapped, or otherwise physically hurt by your partner or ex-partner? No 09/21/2022 Within the last year, have y ou been raped or forced to have any kind of sexual activity by your partner or ex-partner? No 09/21/2022 Social Connection and Isolat ion Panel [NHANES] Answer Date Recorded In a typical week, how many times do you talk on the phone with family, friends, or neighbors? More than three times a week 08/24/2022 How often do you get togethe r with friends or relatives? More than three times a week 08/24/2022 How often do you attend chur ch or quaker services? 1 to 4 times per year 08/24/2022 Do you belong to any clubs o r organizations such as mandaeism groups, unions, fraternal or athletic groups, or [...] care, and heating? Not hard at all 09/21/2022 [facility] [place] of Occupat ional Health - Occupational Stress [...] the money to buy more. Never true 09/22/19 23 Within the past 12 months, t he food you bought just didn't last and you didn't have money to get more. Never true 09/21/2022 PRAPARE - Transportation Answer Date Re corded In the past 12 months, has l ack of transportation kept you from medical appointments or from getting medications? No 09/10 In the past 12 months, has l ack of transportation kept you from meetings, work, or from getting things needed for daily living? No 09/21/2022 Housing Stability Vital Sign Answer Kevin e Recorded In the last 12 months, was t here a time when you were not able to pay the mortgage or rent on time? No 09/21/2022 In the last 12 months, how many places have you lived? 0 09/21/2022 In the last 12 months, was t here a time when you did not have a steady place to sleep or slept in a [place] [facility] (including now)? No 09/21/2022 Comments Unknown Sex and Gender Information Value Date Recorded Sex Assigned at Female 05/03/2024 7:48 AM COMPLEX COMMERCIAL LITIGATION PARALEGAL Legal Sex Female 1:16 AM CDT Gender [...] suspected to have Coronavirus/COVID-19? No / Unsure 09/18/2022 5:24 AM CDT documented as of this encounter Functional Status * Are you deaf or do you have serious difficulty hearing Answer Date of Assessment Author Status No 09/18/2022 5:22 AM CDT Jumana Orona RN Active * Are you blind or do you have serious difficulty seeing, even when wearing glasses? Answer Date of Assessment Author Status No 09/18/2022 5:22 AM AUROART Jumana Orona RN Active * Do you have serious difficulty walking or climbing stairs? Answer Date of Assessment Author Status No 09/18/2022 5:22 AM AURORAT Jumana Orona RN Active * Do you have difficulty dressing or bathing? Answer Date of Assessment Author Status No 09/18/2022 5:22 AM Jumana Adams RN Active * Because of a physical, mental, or emotional condition, do you have difficulty doing errands alone such as visiting a doctor's office or shopping? Answer Date of Assessment Author Status No 09/18/2022 5:22 AM Jumana Adams RN Active documented as of this encounter Mental Status * Because of a physical, mental, or emotional condition, do you have serious difficulty concentrating, remembering, or making decisions? Answer Entry Date Author Status No 09/18/2022 5:22 AM Jumana Adams RN Active documented in this encounter Plan of Treatment Upcoming Encounters Date Type Department Care Team (Late st Contact Info) Description 03/01/2025 1:15 PM COMPLEX COMMERCIAL LITIGATION PARALEGAL Office Visit [facility] [address] [address] Melina Mclean MD [address] [place] [address] documented as of this encounter Goals Goal Patient Goal Type Associated Problems Recent Progress Patient-Stated? Author Safety Patient/family will have appropriate support at home upon discharge Lifestyle No Suyapa Godwin RN Safety Patient/family will have appropriate support at home upon discharge Lifestyle No Suyapa Godwin RN documented as of this encounter Visit Diagnoses Not on filedocumented in this encounter Care Teams Stagecraft Professor Relationship Specialty Start Date End Date Jan Nicole MD [address] [place] [address] PCP - General INTERNAL MEDICINE 10/18/15 Sadie Ribera MD [address] [place] [address] CLINICAL CARDIAC ELECTROPHYSIOLOGY 10/18/15 Triston Posey MD [address] [place] [phone] CARDIOVASCULAR DISEASE 10/18/15 Sangeeta Falcon, [facility] [address] [place] [phone] Frederick Chaperone NURSE PRACTITIONER 08/03/16 07/06/23 Bri Ugarte MD [address] [place] [phone] Consulting Physician CARDIOVASCULAR DISEASE 05/11/2307/05 Melina Mclean MD [address] [place] [address] Consulting Physician CARDIOVASCULAR DISEASE 07/07/23 Millie Vilchis NP [address] [place] [address] [address] [place] [address] Nurse Practitioner Nurse Practitioner Acute Care 05/15/24 documented as of this encounter
--- OUTSIDE RECORDS SUMMARY | 2024-05-22 12:18 | XMS_ITS | Encounter Summary ---
Author Organization [facility] Address [address] [place] [address] Care Team Providers Care Conduit Cleaner Name Role Phone Jan Nicole MD Primary Care Provider [phone] Sadie Ribera MD Unavailable Triston Posey MD Unavailable UnavailSangeeta Herr [facility] Unavailable [phone] Bri Ugarte MD Unavailable Unavailabl Melina Garcia MD Unavailable Millie Vilchis NP Unavailable [phone] Encounter Details Date Type Department Care Team (Late st Contact Info) Description 04/28/2016 Abstract [facility] [address] [place] [address] Sadie Ribera MD [address] [place] [address] Social History Tobacco Use Types Packs/Day Years Used Date Smoking Tobacco: Former Cigarettes Q uit: 2006 Smokeless Tobacco: Never Alcohol Use Standard Drinks/Week Comments No 0 (1 standard drink = 0.6 oz pur e alcohol) Comments Unknown Sex and Gender Information Value Date Recorded Sex Assigned at Female 05/03/2024 7:48 AM PRESIDENT [employer] Legal Sex Female 1:16 AM CDT Gender Identity Not on file Sexual Orientation Not on file Occupation Industry Job Start Date Job End Date Doesnt work Not on file Not on file Not on file documented as of this encounter Plan of Treatment Upcoming Encounters Date Type Department Care Team (Late st Contact Info) Description 03/01/2025 1:15 PM [employer]IDENT [employer] Office Visit [facility] [id number] [place] [phone] Melina Mclean MD [address] [place] [address] documented as of this encounter Procedures Procedure Name Priority Date/Time Associated Diagnosis Comments PT/INR (OUTSIDE LAB) Routine 03/25/2016 documented in this encounter Results * PT/INR (OUTSIDE LAB) (03/25/2016) PROTIME WHOLE BLOOD 38.6 INR WHOLE BLOOD 3.60 03/25/2016 us Doc [facility] Abstract LAB-OUTSIDE/ABSTRACTED Final Result documented in this encounter Visit Diagnoses Not on filedocumented in this encounter Additional Health Concerns Infection Onset Date Last Indicated Resolved Time COVID-19 Rule Out 08/20/2020 08/20/2020 08/20/2020 7:31 PM CDT documented as of this encounter Care Teams Conduit Cleaner Relationship Specialty Start Date End Date Jan Nicole MD [address] [place] [address] PCP - General INTERNAL MEDICINE 10/18/15 Sadie Ribera MD [address] [place] [phone] CLINICAL CARDIAC ELECTROPHYSIOLOGY 10/18/15 Triston Posey MD [address] [place] [phone] CARDIOVASCULAR DISEASE 10/18/15 Sangeeta Falcon [facility] [address] [place] [phone] [place] [employer] Manager NURSE PRACTITIONER 08/03/16 07/06/23 Bri Ugarte MD [address] [place] [phone] Consulting Physician CARDIOVASCULAR DISEASE 05/11/2307/05 Melina Mclean MD [address] [place] [address] Consulting Physician CARDIOVASCULAR DISEASE 07/07/23 Millie Vilchis NP [address] [place] [address] [address] [place] [address] Nurse Practitioner Nurse Practitioner Acute Care 05/15/24 documented as of this encounter
--- OUTSIDE RECORDS SUMMARY | 2024-05-22 12:18 | XMS_ITS | Encounter Summary ---
Author Organization [facility] Address [facility] [place] [address] Care Team Providers Care It Support Consultant Name Role Phone Jan Nicole MD Primary Care Provider [phone] Sadie Ribera MD Unavailable Triston Posey MD Unavailable Unavailabl Sangeeta Molina [facility] Unavailable [phone] Bri Ugarte MD Unavailable Unavailabl e Melina Mclean MD Unavailable Millie Vilchis NP Unavailable [phone] Encounter Details Date Type Department Care Team (Late Contact Info) Description 06/26/2017 Abstract [facility] [address] [place] [address] , Generic Conversion, Social History Tobacco Use Types Packs/Day Years Used Date Smoking Tobacco: Former Cigarettes 1 0 - 2005 Smokeless Tobacco: Never Alcohol Use Standard Drinks/Week Comments Yes 0 (1 standard drink = 0.6 oz pur e alcohol) Comments Unknown Sex and Gender Information Value Date Recorded Sex Assigned at Female 05/03/2024 7:48 AM APPAREL EMBROIDERY DIGITIZER Legal Sex Female 1:16 AM CDT Gender Identity Not on file Sexual Orientation Not on file Occupation Industry Job Start Date Job End Date Doesnt work Not on file Not on file Not on file Not on file Not on file Not on file Not on file documented as of this encounter Plan of Treatment Upcoming Encounters Date Type Department Care Team (Late Contact Info) Description 03/01/2025 1:15 PM APPAREL EMBROIDERY DIGITIZER [facility] [address] [place] [phone] Melina Mclean MD [address] [place] [address] documented as of this encounter Visit Diagnoses Not on filedocumented in this encounter Additional Health Concerns Infection Onset Date Last Indicated Resolved Time COVID-19 Rule Out 08/20/2020 08/20/2020 08/20/2020 7:31 PM CDT documented as of this encounter Care Teams It Support Consultant Relationship Specialty Start Date End Date Jan Nicloe MD [address] [place] [address] PCP - General INTERNAL MEDICINE 10/18/15 Sadie Ribera MD [address] [place] [phone] CLINICAL CARDIAC ELECTROPHYSIOLOGY 10/18/15 Triston Posey MD [address] [place] [phone] CARDIOVASCULAR DISEASE 10/18/15 Sangeeta Falcon [facility] [address] [place] [phone] [place] [employer] Workers Supervisor NURSE PRACTITIONER 08/03/16 07/06/23 Bri Ugarte MD [address] [place] [phone] Consulting Physician CARDIOVASCULAR DISEASE 05/11/2307/05 Melina Mclean MD [address] [place] [address] Consulting Physician CARDIOVASCULAR DISEASE 07/07/23 Millie Vilchis, DIRECTOR BROADCAST [address] , [address] [place] [address] Nurse Practitioner Nurse Practitioner Acute Care 05/15/24 documented as of this encounter
--- OUTSIDE RECORDS SUMMARY | 2024-05-22 12:18 | XMS_ITS | Encounter Summary ---
Author Organization [facility] Address [address] [place] [address] Care Team Providers Care Pierce And Shave Press Operator Name Role Phone Jan Nicole MD Primary Care Provider [phone] Sadie Ribera MD Unavailable Triston Posey MD Unavailable UnavailSangeeta Herr [facility] Unavailable [phone] Bri Ugarte MD Unavailable Unavailabl Melina Garcia MD Unavailable Millie Vilchis NP Unavailable [phone] Encounter Details Date Type Department Care Team (Late st Contact Info) Description 04/29/2016 Abstract [facility] [address] [place] [address] Sadie Ribera MD [address] [place] [address] Social History Tobacco Use Types Packs/Day Years Used Date Smoking Tobacco: Former Cigarettes Q uit: 2006 Smokeless Tobacco: Never Alcohol Use Standard Drinks/Week Comments No 0 (1 standard drink = 0.6 oz pur e alcohol) Comments Unknown Sex and Gender Information Value Date Recorded Sex Assigned at Female 05/03/2024 7:48 AM TELEGRAPH EQUIPMENT MAINTAINER Legal Sex Female 1:16 AM CDT Gender Identity Not on file Sexual Orientation Not on file Occupation Industry Job Start Date Job End Date Doesnt work Not on file Not on file Not on file documented as of this encounter Plan of Treatment Upcoming Encounters Date Type Department Care Team (Late st Contact Info) Description 03/01/2025 1:15 PM TELEGRAPH EQUIPMENT MAINTAINER Office Visit [facility] [address] [phone] Melina Mclean MD [address] [place] [address] documented as of this encounter Procedures Procedure Name Priority Date/Time Associated Diagnosis Comments PT/INR (OUTSIDE LAB) Routine 04/29/2016 documented in this encounter Results * PT/INR (OUTSIDE LAB) (04/29/2016) INR WHOLE BLOOD 2.61 04/29/2016 us Doc [facility] Abstract LAB-OUTSIDE/ABSTRACTED Final Result documented in this encounter Visit Diagnoses Not on filedocumented in this encounter Additional Health Concerns Infection Onset Date Last Indicated Resolved Time COVID-19 Rule Out 08/20/2020 08/20/2020 08/20/2020 7:31 PM CDT documented as of this encounter Care Teams Pierce And Shave Press Operator Relationship Specialty Start Date End Date Jan Nicole MD [address] [place] [address] PCP - General INTERNAL MEDICINE 10/18/15 Sadie Ribera MD [address] [place] [address] CLINICAL CARDIAC ELECTROPHYSIOLOGY 10/18/15 Triston Posey MD [address] [place] [address] CARDIOVASCULAR DISEASE 10/18/15 Sangeeta Falcon AGACNP- [address] [place] [address] [place] First Responder NURSE PRACTITIONER 08/03/16 07/06/23 Bri Ugarte MD [address] [place] [phone] Consulting Physician CARDIOVASCULAR DISEASE 05/11/2307/05 Melina Mclean MD [address] [place] [address] Consulting Physician CARDIOVASCULAR DISEASE 07/07/23 Millie Vilchis NP [address] [place] [address] [address] [place] [address] Nurse Practitioner Nurse Practitioner Acute Care 05/15/24 documented as of this encounter
--- OUTSIDE RECORDS SUMMARY | 2024-05-22 12:18 | XMS_ITS | Encounter Summary ---
Author Organization [facility] Address [address] [place] [address] Care Team Providers Care Pressing Machine Operator Name Role Phone Jan Nicole MD Primary Care Provider [phone] Sadie Ribera MD Unavailable Triston Posey MD Unavailable UnavailSangeeta Herr AGACNP- Unavailable [phone] Bri Ugarte MD Unavailable Unavailabl Melina Garcia MD Unavailable Millie Vilchis NP Unavailable [phone] Encounter Details Date Type Department Care Team (Late st Contact Info) Description 08/21/2020 Hospital Orders Only [facility] Anesthesia [address] [place] [address] Graciela Chapman Anesthesia Record Procedure Summary Procedure Name Responsible Anesthesiologist Anesthesia Start Time Anesthesia Stop Time XA AFLUTTER ABLATION Maxime Cruz MD 08/23/20 1247 08/23/20 1538 Events Date Time Event Comment 08/23/2020 1046 1046 AN Anesthesia Prepped 1247 An Start Patient ID and consent checked and patient reassessed. 1247 An Start Data 1254 Preoxygenation 1309 An Induction The patient was reevaluated immediately before moderate or deep sedation use and before anesthesia induction. 1309 An Intubation 1309 Anesthesia Ready 1402 Quick Note Act 362 1429 Quick Note Act 345 1456 Quick Note Act 318 1513 Quick Note Act 163 1521 An Extubation 1527 an stop data 1538 Post Anesthetic Care Handoff I completed my handoff to the receiving nurse during which we: 1. Identified the patient 2. Identified the responsible provider 3. Reviewed the pertinent medical history 4. Discussed the surgical course 5. Reviewed intra-op anesthesia management and issues during anesthesia 6. Set expectations for post-procedure period 7. Allowed opportunity for questions and acknowledgement of understanding. 1538 An Stop Meds * Agents No agents on file. * Blood No blood administrations on file. Lines, Drains, and Airways Type Details Placement Removal Peripheral IV Placement Date: 08/10 07/31; Placement Time: 1033; Placed Outside of This Facility?: No; Size: 18 G; Orientation: Left; Location: Antecubital; Site Prep: Chlorhexidine; Local Anesthetic: None; Inserted By: Sydnie Roman RN; Insertion attempts: 1; Ultrasound-guided Placement?: No; Patient Tolerance: Tolerated well; Removal Date: 08/24/20; Removal Time: 1140; Removal Reason: Patient Discharged 08/23/20 1033 by Sydnie Adler RN 08/24/20 1140 by Jasmin Acharya RN Peripheral IV Placement Date: 08/10 07/31; Placement Time: 1247; Placed Outside of This Facility?: No; Size: 18 G; Orientation: Right; Location: Forearm; Site Prep: Alcohol; Local Anesthetic: None; Insertion attempts: 1; Ultrasound-guided Placement?: No; Patient Tolerance: Tolerated well; Removal Date: 08/24/20; Removal Time: 1140; Removal Reason: Patient Discharged 08/23/20 1247 by Josie Sheth CRNA 08/24/20 1140 by Jasmin Acharya RN Arterial Line Placement Date: 08/10 07/31; Placement Time: 1300; Orientation: Right; Location: Radial; Inserted By: anesthesia; Removal Date: 08/23/20; Removal Time: 1624; Removal Reason: Therapy Completed 08/23/20 1300 by Danica Johansen RN 08/23/20 1624 by Danica Johansen RN ETT Placement Date: 08/10 07/31; Placement Time: 1309; Placed Outside of This Facility?:No; Mask Ventilate: In between insertion attempts, Prior to intubation, Easy; Size (mm) : 7; Endotracheal: Oral; Blade Type: MAC 3; Placement Method: Direct Laryngoscopy (blade type in comment); View Grade: 1; Viewable Anatomy: Epiglottis, Vocal cords; Insertion Attempts: 1; Placement Verified By: Capnography, Auscultation, Chest Rise; Placed By: CHAYA; Removal Date: 08/23/20; Removal Time: 1521 08/23/20 1309 by Josie Sheth CRNA 08/23/20 1521 by Josie Sheth CRNA documented in this encounter Social History Tobacco Use Types Packs/Day Years Used Date Smoking Tobacco: Former Cigarettes 2005 Smokeless Tobacco: Never Alcohol Use Standard Drinks/Week Comments Yes 0 (1 standard drink = 0.6 oz pur e alcohol) Comments Unknown Sex and Gender Information Value Date Recorded Sex Assigned at Female 05/03/2024 7:48 AM PRISONER CLASSIFICATION INTERVIEWER Legal Sex Female 1:16 AM CDT Gender Identity Not on file Sexual Orientation Not on file Occupation Industry Job Start Date Job End Date Doesnt work Not on file Not on file Not on file Not on file Not on file Not on file Not on file COVID-19 Exposure Response Date Recorded In the last month, have you been in contact with someone who was confirmed or suspected to have Coronavirus / COVID-19? No / Unsure 08/23/2020 9:41 AM CDT documented as of this encounter Plan of Treatment Upcoming Encounters Date Type Department Care Team (Late st Contact Info) Description 03/01/2025 1:15 PM PRISONER CLASSIFICATION INTERVIEWER Office Visit [facility] [address] [phone] Melina Mclean MD [address] [place] [address] documented as of this encounter Visit Diagnoses Not on filedocumented in this encounter Care Teams Pressing Machine Operator Relationship Specialty Start Date End Date Jan Nicole MD [address] [place] [address] PCP - General INTERNAL MEDICINE 10/18/15 Sadie Ribera MD [address] [place] [phone] CLINICAL CARDIAC ELECTROPHYSIOLOGY 10/18/15 Triston Posey MD [address] [place] [phone] CARDIOVASCULAR DISEASE 10/18/15 Sangeeta Falcon [facility] [address] [place] [phone] [place] [employer] Jet Cutter Operator NURSE PRACTITIONER 08/03/16 07/06/23 Bri Ugarte MD [address] [place] [phone] Consulting Physician CARDIOVASCULAR DISEASE 05/11/2307/05 Melina Mclean MD [address] [place] [address] Consulting Physician CARDIOVASCULAR DISEASE 07/07/23 Millie Vilchis NP [address] [place] [address] [address] [place], [place] [phone] Nurse Practitioner Nurse Practitioner Acute Care 05/15/24 documented as of this encounter
--- OUTSIDE RECORDS SUMMARY | 2024-05-22 12:18 | XMS_ITS | Encounter Summary ---
Author Organization [facility] Address [address] [place] [address] Care Team Providers Care Transportation Maintenance Worker Name Role Phone Jan Nicole MD Primary Care Provider [phone] Sadie Ribera MD Unavailable Triston Posey MD Unavailable UnavailSangeeta Herr [facility] Unavailable [phone] Bri Ugarte MD Unavailable Unavailabl Melina Garcia MD Unavailable Millie Vilchis NP Unavailable [phone] Encounter Details Date Type Department Care Team (Late st Contact Info) Description 08/31/2022 Hospital Follow-up Call [facility] [address] [place] [address] Ana Wright, RN Social History [...] often do you attend chur ch or jew services? 1 to 4 times per year 08/24/2022 Do you belong to any clubs o r organizations such as judaism groups, unions, fraternal or athletic groups, or [...] and heating? Not hard at all 08/24/2022 [facility] [place] of Occupat ional Health - Occupational Stress [...] place to sleep or slept in a senior care (including now)? No 08/24/2022 Comments Unknown Sex and Gender Information Value Date Recorded Sex Assigned at Female 05/03/2024 7:48 AM SAMPLE SELECTOR Legal Sex Female 1:16 AM CDT Gender [...] AM CDT Gabby Bess RN Active * Are you blind or do you have serious difficulty seeing, even when wearing glasses? Answer Date of Assessment Author Status No 08/24/2022 3:00 AM CDT Gabby Bess, RN Active * Do you have serious difficulty walking or climbing stairs? Answer Date of Assessment Author Status No 08/24/2022 3:00 AM CDT Gabby Bess, RN Active * Do you have difficulty dressing or bathing? Answer Date of Assessment Author Status No 08/24/2022 3:00 AM CDT Gabby Bess RN Active * Because of a physical, [...] Author Status No 08/24/2022 3:00 AM Gabby Pineda RN Active documented in this encounter Plan of Treatment Upcoming Encounters Date Type Department Care Team (Late st Contact Info) Description 03/01/2025 1:15 PM SAMPLE SELECTOR Office Visit [facility] [address] [phone] Melina Mclean MD [address] [place] [address] documented as of this encounter Goals Goal Patient Goal Type Associated Problems Recent Progress Patient-Stated? Author Safety Patient/family will have appropriate support at home upon discharge Lifestyle No Suyapa Godwin RN documented as of this encounter Visit Diagnoses Not on filedocumented in this encounter Care Teams Transportation Maintenance Worker Relationship Specialty Start Date End Date Jan Nicole MD [address] [place] [address] PCP - General INTERNAL MEDICINE 10/18/15 Sadie Ribera MD [address] [place] [phone] CLINICAL CARDIAC ELECTROPHYSIOLOGY 10/18/15 Triston Posey MD [address] [place] [phone] CARDIOVASCULAR DISEASE 10/18/15 [facility]eta Falcon [facility] [address] [place] [phone] [place] [employer] NURSE PRACTITIONER 08/03/16 07/06/23 Bri Ugarte MD [address] [place] [address] Consulting Physician CARDIOVASCULAR DISEASE 05/11/2307/05 Melina Mclean MD [address] [place] [address] Consulting Physician CARDIOVASCULAR DISEASE 07/07/23 Millie Vilchis NP [address] [facility] [address] [place] [address] Nurse Practitioner Nurse Practitioner Acute Care 05/15/24 documented as of this encounter
--- OUTSIDE RECORDS SUMMARY | 2024-05-22 12:18 | XMS_ITS | Encounter Summary ---
Author Organization [facility] Address [address] [place] [address] Care Team Providers Care Chief Writer Name Role Phone Jan Nicole MD Primary Care Provider [phone] Sadie Ribera MD Unavailable Triston Posey MD Unavailable UnavailSangeeta Herr [facility] Unavailable [phone] Bri Ugarte MD Unavailable Unavailabl Melina Garcia MD Unavailable Millie Vilchis NP Unavailable [phone] Encounter Details Date Type Department Care Team (Late st Contact Info) Description 06/01/2022 Hospital Follow-up Call [facility] [address] [place] [address] Ana Wright, RN Social History Tobacco Use Types Packs/Day Years Used Date Smoking Tobacco: Former Cigarettes 2005 Smokeless Tobacco: Never Alcohol Use Standard Drinks/Week Comments Yes 0 (1 standard drink = 0.6 oz pur e alcohol) Humiliation, Afraid, Rape, and Kick questionnair e Answer Date Recorded Within the last year, have y ou been afraid of your partner or ex-partner? No 05/27/2022 Within the last year, have y ou been humiliated or emotionally abused in other ways by your partner or ex-partner? No Within the last year, have y ou been kicked, hit, slapped, or otherwise physically hurt by your partner or ex-partner? No 05/27/2022 Within the last year, have y ou been raped or forced to have any kind of sexual activity by your partner or ex-partner? No 05/27/2022 Overall Financial Resource Strain (CARDIA) Answe r Date Recorded How hard is it for you to pa y for the very basics like food, housing, medical care, and heating? Not hard at all 05/27/2022 Hunger Vital Sign Answer Date Recorded Within the past 12 months, y ou worried that your food would run out before you got the money to buy more. Never true 05/27/19 23 Within the past 12 months, t he food you bought just didn't last and you didn't have money to get more. Never true 05/27/2022 PRAPARE - Transportation Answer Date Re corded In the past 12 months, has l ack of transportation kept you from medical appointments or from getting medications? No 05/13 In the past 12 months, has l ack of transportation kept you from meetings, work, or from getting things needed for daily living? No 05/27/2022 Housing Stability Vital Sign Answer Kevin e Recorded In the last 12 months, was t here a time when you were not able to pay the mortgage or rent on time? No 05/27/2022 In the last 12 months, how many places have you lived? 1 05/27/2022 In the last 12 months, was t here a time when you did not have a steady place to sleep or slept in a halfway (including now)? No 05/27/2022 Comments Unknown Sex and Gender Information Value Date Recorded Sex Assigned at Female 05/03/2024 7:48 AM SWITCH TENDER Legal Sex Female 1:16 AM CDT Gender [...] suspected to have Coronavirus/COVID-19? No / Unsure 05/27/2022 2:36 AM SWITCH TENDER documented as of this encounter Functional Status * RETIRED Are you deaf or do you have serious difficulty hearing Answer Date of Assessment Author Status No 05/20/2022 6:45 PM SWITCH TENDER Activ e * RETIRED Are you blind or do you have serious difficulty seeing, even when wearing glasses? Answer Date of Assessment Author Status No 05/20/2022 6:45 PM SWITCH TENDER Activ e * Do you have serious difficulty walking or climbing stairs? Answer Date of Assessment Author Status No 05/20/2022 6:45 PM SWITCH TENDER Deepthi Patel RN Active * Do you have difficulty dressing or bathing? Answer Date of Assessment Author Status No 05/20/2022 6:45 PM SWITCH TENDER Deepthi Patel RN Active * Because of a physical, mental, or emotional condition, do you have difficulty doing errands alone such as visiting a doctor's office or shopping? Answer Date of Assessment Author Status No 05/20/2022 6:45 PM Deepthi Kim RN Active documented as of this encounter Mental Status * Because of a physical, mental, or emotional condition, do you have serious difficulty concentrating, remembering, or making decisions? Answer Entry Date Author Status No 05/20/2022 6:45 PM Deepthi Kim RN Active documented in this encounter Plan of Treatment Upcoming Encounters Date Type Department Care Team (Late st Contact Info) Description 03/01/2025 1:15 PM SWITCH TENDER Office Visit [facility] [phone] Melina Mclean MD [address] [place] [address] documented as of this encounter Goals Goal Patient Goal Type Associated Problems Recent Progress Patient-Stated? Author Safety Patient/family will have appropriate support at home upon discharge Lifestyle No Suyapa Godwin RN documented as of this encounter Visit Diagnoses Not on filedocumented in this encounter Care Teams Chief Writer Relationship Specialty Start Date End Date Jan Nicole MD [address] [place] [address] PCP - General INTERNAL MEDICINE 10/18/15 Sadie Ribera MD [address] [place] [phone] CLINICAL CARDIAC ELECTROPHYSIOLOGY 10/18/15 Triston Posey MD [address] [place] [phone] CARDIOVASCULAR DISEASE 10/18/15 Sangeeta Falcon [facility] [address] [place] [phone] [place] [employer] Agent NURSE PRACTITIONER 08/03/16 07/06/23 Bri Ugarte MD [address] [place] [phone] Consulting Physician CARDIOVASCULAR DISEASE 05/11/2307/05 Melina Mclean MD [address] [place] [phone] Consulting Physician CARDIOVASCULAR DISEASE 07/07/23 Millie Vilchis NP [address] [place] [address] [address] [place] [address] Nurse Practitioner Nurse Practitioner Acute Care 05/15/24 documented as of this encounter
--- OUTSIDE RECORDS SUMMARY | 2024-05-22 12:18 | XMS_ITS ---
Author Organization Unknown Address [address] [place] [phone] Phone Care Team Providers Care Chemical Production Engineer Name Role Phone SHIRLEY OLVERA Attending Unavailable DEANDRA SIMENTAL Primary Unavailable Immunization Immunization Date Status Additional Notes Code Code System pneumococcal polysaccharide PPV23 02/11/2018 Completed 33 CVX Hep A, adult 04/18/1999 Completed 52 CVX Hep A, adult 10/17/1999 Completed 52 CVX meningococcal MCV4P 09/28/2007 Completed 114 CVX Tdap 02/29/2008 Completed 115 CVX Tdap 12/14/2017 Completed 115 CVX Pneumococcal conjugate PCV 13 08/31/2007 Completed 133 CVX Pneumococcal conjugate PCV 13 01/24/2015 Completed 133 CVX Influenza, high-dose, trivalent, PF 01/12/2024 Completed 135 CVX Influenza, split virus, trivalent, preservative 01/06/2012 Completed 141 CVX Influenza, split virus, trivalent, preservative 01/10/2013 Completed 141 CVX Influenza, split virus, quadrivalent, PF 01/17/2016 Completed 150 CVX Influenza, split virus, quadrivalent, PF 01/13/2017 Completed 150 CVX Influenza, split virus, quadrivalent, PF 01/10/2018 Completed 150 CVX Influenza, split virus, quadrivalent, PF 01/14/2019 Completed 150 CVX Influenza, split virus, quadrivalent, PF 03/26/2020 Completed 150 CVX Influenza, split virus, quadrivalent, PF 01/16/2022 Completed 150 CVX Influenza, split virus, quadrivalent, preservative 02/01/2014 Completed 158 C VX Influenza, split virus, quadrivalent, preservative 01/24/2015 Completed 158 C VX zoster recombinant 10/07/2020 Completed 187 CVX COVID-19, mRNA, LNP-S, PF, 1 00 mcg/0.5mL dose or 50 mcg/0.25mL dose 06/14/2020 Completed 207 CVX COVID-19, mRNA, LNP-S, PF, 1 00 mcg/0.5mL dose or 50 mcg/0.25mL dose 07/12/2020 Completed 207 CVX COVID-19, mRNA, LNP-S, PF, 1 00 mcg/0.5mL dose or 50 mcg/0.25mL dose 02/04/2021 Completed 207 CVX COVID-19, mRNA, LNP-S, PF, 3 0 mcg/0.3 mL dose, cyndee-sucrose 08/29/2021 Completed 217 CVX COVID-19, mRNA, LNP-S, PF, cyndee-sucrose, 30 mcg/0.3 mL 01/12/2024 Completed 309 CVX Social History Type Status Start Date End Date Code Code Syst em Sex Female Hospital Discharge Instructions Should you have any questions prior to discharge, please contact a member of your healthcare team. If you have left the hospital and have any questions, please contact your primary care physician. Reason For Referral No Data Found Plan of Treatment US Echo With Color (90017) 02/21/2024 US Echo With Color (21471) 02/22/2025 Encounters Encounter Diagnosis Start Date Code Code Sys tem Right bundle branch block 01/06/2024 [id number] SN OMED-CT Personal Care Team Section Performer Name Performer Role Active Date Inactive HOLA Cullen PCP - Primary care physician 2024-01-06
--- OUTSIDE RECORDS SUMMARY | 2024-05-22 12:19 | XMS_ITS | Encounter Summary ---
Author Organization [facility] Address [address] [place] [address] Care Team Providers Care Licensed Nursing Assistant Name Role Phone Jan Nicole MD Primary Care Provider [phone] Sadie Ribera MD Unavailable Triston Posey MD Unavailable Unavailabl e Melina Mclean MD Unavailable Millie Vilchis NP Unavailable [phone] Reason for Visit * Reason Onset Date Comments Refill Request 05/22/2024 Encounter Details Date Type Department Care Team (Late st Contact Info) Description 05/22/[address] [facility] [address] [place] [address] Melina Mclean MD [address] [place] [address] Refill Request Social History Tobacco Use Types Packs/Day Years Used Date Smoking Tobacco: Every Day Cigarettes 1 55.1 Started: 1969 Smokeless Tobacco: Never Comments:Smoked from 1969 to 2005, restarted 2019 Alcohol Use Standard Drinks/Week Comments Not Currently 0 (1 standard drink = 0.6 oz [...] 08/24/2022 How often do you attend chur or latter-day services? 1 to 4 times per year 08/24/2022 Do you belong to any clubs o r organizations such as baptist groups, unions, fraternal or athletic groups, or [...] and heating? Not hard at all 09/21/2022 [facility] [place] of Occupat ional Health - Occupational Stress [...] place to sleep or slept in a assisted (including now)? No 09/21/2022 Comments No Sex and Gender Information Value Date Recorded Sex Assigned at Female 05/03/2024 7:48 AM ACCOUNT CLASSIFICATION CLERK Legal Sex Female 1:16 AM CDT Gender Identity Not on file Sexual Orientation Not on file Occupation Industry Job Start Date Job End Date Doesnt work Not on file Not on file Not on file Not on file Not on file Not on file Not on file documented as of this encounter Functional Status * Are you deaf or do you have serious difficulty hearing Answer Date of Assessment Author Status No 09/18/2022 5:22 AM AURORAT Jumana Orona RN Active * Are you blind or do you have serious difficulty seeing, even when wearing glasses? Answer Date of Assessment Author Status No 09/18/2022 5:22 AM AURORAT Jumana Orona RN Active * Do you have serious difficulty walking or climbing stairs? Answer Date of Assessment Author Status No 09/18/2022 5:22 AM Jumana Adams RN Active * Do you have difficulty [...] Adams RN Active documented in this encounter Progress Notes * Abiodun Cota LPN - 05/22/2024 12:18 PM CST Amio managed by EP - looks like it was discontinued... UNT CLASSIFICATION CLERK * Cora Dunne - 05/22/2024 9:19 AM CST Refill Request Pharmacy : [facility] 30 or 90 day supply : 90 Medication : amiodarone HCL 200 mg Who is calling : Fax from pharmacy UNT CLASSIFICATION CLERK documented in this encounter Plan of Treatment Upcoming Encounters Date Type Department Care Team (Late st Contact Info) Description 03/01/2025 1:15 PM ACCOUNT CLASSIFICATION CLERK Office Visit [facility] [address] [phone] Melina Mclean MD [address] [place] [address] documented as of this encounter Goals Goal Patient Goal Type Associated Problems Recent Progress Patient-Stated? Author Safety Patient/family will have appropriate support at home upon discharge Lifestyle No Suyapa Godwin RN Safety Patient/family will have appropriate support at home upon discharge Lifestyle No Suyapa Godwin RN documented as of this encounter Visit Diagnoses Not on filedocumented in this encounter Care Teams Licensed Nursing Assistant Relationship Specialty Start Date End Date Jan Nicole MD [address] [place] [address] PCP - General INTERNAL MEDICINE 10/18/15 Sadie Ribera MD [address] [place] [phone] CLINICAL CARDIAC ELECTROPHYSIOLOGY 10/18/15 Triston Posey MD [address] [place] [phone] CARDIOVASCULAR DISEASE 10/18/15 Melina Mclean MD [address] [place] [address] [phone] Consulting Physician CARDIOVASCULAR DISEASE 07/07/23 Millie Vilchis NP [address] [place] [address] [address] [place], [place] [phone] Nurse Practitioner Nurse Practitioner Acute Care 05/15/24 documented as of this encounter
--- OUTSIDE RECORDS SUMMARY | 2024-05-22 12:20 | XMS_ITS | Clinical Summary ---
Author Organization [facility] Address [address] [place] [address] Care Team Providers Care Bone Char Kiln Tender Name Role Phone Jan Nicole MD Primary Care Provider [phone] Sadie Ribera MD Unavailable Triston Posey MD Unavailable Unavailabl May Garcia MD Unavailable Millie Vilchis NP Unavailable [phone] Allergies No known active allergies Medications vitamin B-12 (CYANOCOBALAMIN ) (CYANOCOBALAMIN ) 1000 mcg tablet Take 1 tablet (1,000 mcg total) by mouth daily. Active metoprolol tartrate (LOPRESSOR) 25 MG tabletIndicatio ns:Rapid atrial fibrillation (CMS/HCC HHS/HCC) Take 1 tablet (25 mg total) by mouth 2 (two) times daily. 30 tablet 2 02/16/20 23 Active Additional Information Patient taking differently: 12.5 mgOral 2 times daily, Reported on 01/06/2024 magnesium 250 MG tablet Take 1 tablet (250 mg total) by mouth daily. Active Ferrous Sulfate (IRON) 325 (65 Fe) MG tablet Take 325 mg by mouth daily with breakfast. Active famotidine (PEPCID) 20 MG tablet TAKE ONE TABLET BY MOUTH AT BEDTIME D/C'D RX 06-03-23 60 tablet 00 07/29/19 24 Active DULoxetine (CYMBALTA) 30 MG capsule Take 1 capsule (30 mg total) by mouth daily. 03/28/20 24 Active rosuvastatin (CRESTOR) 20 MG tablet 05/03/19 25 Active aspirin EC (ECOTRIN) 81 MG tablet Take 1 tablet (81 mg total) by mouth daily. Active DULoxetine (CYMBALTA) 20 MG capsule Take 1 capsule (20 mg total) by mouth daily. 2024 Discontinued(D iscontinued by another clinician) senna-docusate (SENOKOT-S) 8.6-50 MG tablet Take 2 tablets by mouth nightly at bedtime. 60 tablet 09/25/19 23 2024 Discontinued(D iscontinued by another clinician) traMADol (ULTRAM) 50 MG tabletIndicatio ns:Acute Pain < 3 Day Supply Take 1 tablet (50 mg total) by mouth every 6 (six) hours as needed for Pain. Indications: Acute Pain < 3 Day Supply 12 tablet 09/25/19 23 2024 Discontinued(D iscontinued by another clinician) aspirin 81 MG chewable tablet Chew 1 tablet (81 mg total) by mouth daily. 2024 Discontinued(D iscontinued by another clinician) amiodarone (PACERONE) 200 MG tabletIndicatio ns:Rapid atrial fibrillation ([facility] HHS/HCC) take one tablet by mouth daily 90 tablet 1 08/25/19 24 2024 Discontinued(D iscontinued by another clinician) ELIQUIS 5 MG tablet 03/31/20 24 2024 Discontinued Active Problems Problem Noted Date Diagnosed Date History of mitral valve prosthesis 12/24/2022 Hyperlipidemia, unspecified hyperlipidemia type 12/24/2022 Tobacco abuse 12/24/2022 CAD (coronary artery disease) 09/18/2022 Rapid atrial fibrillation (CMS/HCC HHS/HCC) 02/11/2022 Atrial fibrillation with RVR ([facility] HHS/HCC) 0 05/20/2022 Atypical atrial flutter ([facility] HHS/HCC) 2018 correction current use of antiarrhythmic drug Atrioventricular bloc first degree 07/31/2016 Right bundle branch block 04/24/2016 Persistent atrial fibrillation ([facility] HHS/HCC) 10/09/2015 correction current use of anticoagulant therapy 0 10/09/2015 Bifascicular block 10/09/2015 Encounters Date Type Department Care Team Description 05/22/2024 Telephone [facility] [address] [place] [address] May Watson MD Refill Request 05/16/2024 Telephone [facility] [address] [place] [address] May Watson MD Results 05/15/2024 2:00 PM MANAGER OUTREACH Office Visit [facility] [address] [place] [address] Millie Vilchis NP Follow Up; Atrial Fibrillation 05/15/2024 Travel 05/11/2024 Orders Only [facility] [address] [place] [address] Sadie Ribera MD 05/11/2024 Orders Only [facility] [address] [place] [address] Vince Petty MD 05/08/2024 Telephone [facility] [address] [place] [address] Sadie Ribera MD Appointment Reminder 05/04/2024 Telephone [facility] [address] [place] [address] May Watson MD Results 05/03/2024 7:50 AM MANAGER OUTREACH - 05/03/2024 11:59 PM MANAGER OUTREACH Hospital Encounter [facility] [facility] [place] [address] May Watson MD Quarton, Brian L, MD Discharge Disposition: Home or Self Care (Routine Discharge) 05/03/2024 7:49 AM MANAGER OUTREACH Hospital Encounter [facility] [address] [facility] [place] [address] May Watson MD Discharge Disposition: Home or Self Care (Routine Discharge) 05/03/2024 Travel 03/13/2024 8:15 AM MANAGER OUTREACH Telephone [facility] [address] [place] [phone] May Waston MD Holter Monitor 03/06/2024 Telephone [facility] [address] [place] [phone] Sadie Ribera MD Refill Request; Question 02/28/2024 Orders Only [facility] [address] [place] [address] May Watson MD 02/25/2024 Telephone [facility] [address] [place] [address] May Watson MD Results 02/21/2024 Scan [facility] [address] [place] [address] Scanned, Doc Pccl from Last 3 Months Family History Medical History Relation Comments Cancer Brother 1 Cancer Mother Cancer Sister 1 MVA Sister 2 Relation Status Comments Brother 1 (Age 30) cancer Brother 2 Brother 3 Brother 4 Father (Age 51) Maternal Grandfather Maternal Grandmother Mother (Age 61) Paternal Grandfather Paternal Grandmother Sister 1 (Age 74) cancer Sister 2 MVA Sister 3 Alive Social History Tobacco Use Types Packs/Day Years Used Date Smoking Tobacco: Every Day Cigarettes 1 55.1 Started: 1969 Smokeless Tobacco: Never Tobacco Cessation:Ready to Q uit: Not Asked; Counseling Given: Not Answered Comments:Smoked from 1969 to 2005, restarted 2018 Alcohol Use Standard Drinks/Week Comments Not Currently [...] often do you attend chur ch or taoist services? 1 to 4 times per year 08/24/2022 Do you belong to any clubs o r organizations such as confucianism groups, unions, fraternal or athletic groups, or [...] and heating? Not hard at all 09/21/2022 [facility] - Occupational Stress [...] place to sleep or slept in a longterm (including now)? No 09/21/2022 Comments No Sex and Gender Information Value Date Recorded Sex Assigned at Female 05/03/2024 7:48 AM MANAGER OUTREACH Legal Sex Female 1:16 AM CDT Gender Identity Not on file Sexual Orientation Not on file Occupation Industry Job Start Date Job End Date Doesnt work Not on file Not on file Not on file Not on file Not on file Not on file Not on file Last Filed Vital Signs Vital Sign Reading Time Taken Comments Blood Pressure 116/78 05/15/2024 2:19 PM MANAGER OUTREACH Pulse 83 05/15/2024 2:19 PM MANAGER OUTREACH Temperature 36.2 C (97.2 F) 06/03/2023 1:00 PM MANAGER OUTREACH Respiratory Rate 16 05/15/2024 2:19 PM MANAGER OUTREACH Oxygen Saturation 93% 05/15/2024 2:19 PM MANAGER OUTREACH Inhaled Oxygen Concentration - - Weight 72.9 kg (160 lb 12.8 oz) 05/15/2024 2:19 PM MANAGER OUTREACH Height 165.1 cm (5' 5 ) 05/15/2024 2:19 PM MANAGER OUTREACH Body Mass Index 26.76 05/15/2024 2:19 PM MANAGER OUTREACH Plan of Treatment Upcoming Encounters Date Type Department Care Team (Late st Contact Info) Description 03/01/2025 1:15 PM MANAGER OUTREACH Office Visit [facility] [address] [place] [phone] May Watson MD [address] [place] [address] Health Maintenance Due Date Last Done Comments Hepatitis C 1969 Mammogram Screening 1991 Lung Cancer Screening 2001 RSV Immunization or 60+ Years (1 - Risk 60-74 years 1-dose series) 2011 Annual Medicare Wellness Visit 2016 Dexa Scan (General) 2016 Zoster Vaccines (2 of 2) 12/02/2020 10/07/2020 ASCVD LDL 09/17/2023 09/16/2022 DTaP, Tdap and Td Vaccines (3 - Td or Tdap) 12/15/2027 12/14/2017, 02/29/2008 Colorectal Cancer Screening Colonoscopy (10 Years) 06/03/2033 06/03/2023, 06/03/2023 Meningococcal Vaccine Aged Out 09/28/2007 No yamel monster eligible based on patient's age to complete this topic Pneumococcal Vaccine: 65+ Years Completed 02/11/2018, 01/24/2015, 08/31/2007 COVID-19 Vaccine Completed 01/12/2024, , 02/04/2021, Additional history exists Influenza Adult Completed 01/12/2024, 10/2021, 03/26/2020, Additional history exists Meningococcal B Vaccine Aged Out No l onger eligible based on patient's age to complete this topic RSV Immunizations Under 20 Months Aged Out No longer eligible based on patient's age to complete this topic Goals Goal Patient Goal Type Associated Problems Recent Progress Patient-Stated? Author Safety Patient/family will have appropriate support at home upon discharge Lifestyle No Suyapa Godwin RN Safety Patient/family will have appropriate support at home upon discharge Lifestyle No Suyapa Godwin RN Medical Devices Implanted Type Area Telesales Advisor Device Identifier Shelf Expiration Date Model / Serial / Lot Valve Mitral C-E 25mm - [id number] Implanted:Qty: 1 on 09/18/2022 by Len Swanson MD at [facility] Valve Implant Brain [employer] [id number] 06/17/2024 [id number] / [id number] / Description:Inventory notifi ed--Danica Atricure 45 Implanted:Qty: 1 on 09/18/2022 by Len Swanson MD at [facility] [id number] 05/13/2025 / / [id number] Procedures Procedure Name Priority Date/Time Associated Diagnosis Comments ELECTROCARDIOGRAM (NON MIDMARK ACQUIRED) Routine 05/15/2024 2:24 PM MANAGER OUTREACH Persistent atrial fibrillation (CMS/HCC HHS/HCC) NM PHARM NUC STRESS TEST 1DAY W TRACING Routine 05/03/2024 10:46 AM MANAGER OUTREACH Cardiomyopathy, unspecified type (CMS/HCC HHS/HCC) STRESS TEST ONLY, EXERCISE Routine 05/03/2024 8:04 AM MANAGER OUTREACH Cardiomyopathy, unspecified type (CMS/HCC HHS/HCC) MOBILE CONTINUOUS TELEMETRY Routine 2024 3:44 PM MANAGER OUTREACH Persistent atrial fibrillation (CMS/HCC HHS/HCC) USE ECHOCARDIOGRAM Routine 02/21/2024 Hyperlipidemia, mixed History of mitral valve prosthesis COLONOSCOPY Routine 06/03/2023 7:33 AM MANAGER OUTREACH LIPID PANEL Routine 09/16/2022 11:25 AM CDT from Last 3 Months or Most Recently Relevant to Health Maintenance Results * ELECTROCARDIOGRAM (05/15/2024 2:24 PM MANAGER OUTREACH) 05/15/2024 2:24 PM MANAGER OUTREACH Narrative [facility] - 05/16/2024 10:28 AM MANAGER OUTREACH [facility] [address] [place] [address] Test Date: 2024-05-15 Pat Name: CRISTINE BANUELOSLUCILA Department: 105 Room: Gender: Female On Site 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: : 1950 Requested By: SADIE RIBERA Order Number: [id number] Reading MD: Sadie Ribera Measurements Intervals [place] Rate: 83 P: 0 [place]: 0 QRS: -77 QRSD: 158 T: 52 QT: 421 QTc: 496 Interpretive Statements SINUS RHYTHM RIGHT BUNDLE BRANCH BLOCK LEFT ANTERIOR FASCICULAR BLOCK GER OUTREACH Procedure Note Sadie Ribera MD - 05/16/2024 [facility] [address] [place] [address] Test Date: 2024-05-15 Pat Name: CRISTINE MENDEZ Department: 105 Room: Gender: Female On Site 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: : 1950 Requested By: SADIE RIBERA Order Number: [id number] Reading MD: Sadie Ribera Measurements Intervals [place] Rate: 83 P: 0 [place]: 0 QRS: -77 QRSD: 158 T: 52 QT: 421 QTc: 496 Interpretive Statements SINUS RHYTHM RIGHT BUNDLE BRANCH BLOCK LEFT ANTERIOR FASCICULAR BLOCK GER OUTREACH us Sadie Ribera MD PROCEDURES-ORDERABLE NO CHARGE F inal Result [facility] * NM PHARM NUC STRESS TEST 1 DAY W TRACING (05/03/2024 10:46 AM MANAGER OUTREACH) Anatomical Region Laterality Modality Cardiac Nuclear Medicine 05/03/2024 9:08 AM MANAGER OUTREACH Narrative 05/06/2024 1:55 PM MANAGER OUTREACH MYOCARDIAL PERFUSION SCAN Pat.Name: Cristine Mendez Pat.ID: [id number] St.Date: 05/03/2024 Refer.MD: Светлана, [facility] Exam Time: 9:08:00 AM Study Type:NH OUTREACH Height: 65 in Weight: 145 lb BSA: 1.73 m2 Age: 1 1950,74Y Sex: F Sonogrphr: RADHA Bautista Pat. Stat.:Outpatient Reason for Study:Cardiomyopathy, unspecified type Procedures: Study performed at [place], [place] and interpreted by [facility]. Regadenoson Stress, Stress Gated SPECT, Rest SPECT Risk Factors:Hypertension, Smoking ++++++++++++++++++++++++++++++++++++ SUMMARY: ++++++++++++++++++++++++++++++++++++ Mildly Abnormal Perfusion Study. No evidence of ischemia. There is evidence of a small area of mild intensity fixed defect consistent with infarction in the apical anterior wall. There is a mild apical anterior perfusion defect during stress and rest. There is post stress normal wall motion in all sainz. Left ventricular EF is 82 %. The study quality is good. ++++++++++++++++++++++++++++++++++++ FINDINGS: ++++++++++++++++++++++++++++++++++++ Stress Findings: Negative electrocardiographic portion of regadenoson stress test. Impr: Mildly Abnormal Perfusion Study. There is evidence of a small area of mild intensity fixed defect consistent with infarction in the apical anterior wall. Transient Ischemic Dilatation: The TID is 1.08. LV Perfusion Results: There is a mild apical anterior perfusion defect during stress and rest. Gated SPECT Results: Left ventricular EF is 82 %. There is post stress normal wall motion in all sainz. Study Quality/Artifacts: The study quality is good. ++++++++++++++++++++++++++++++++++++ STRESS: ++++++++++++++++++++++++++++++++++++ Baseline Vital Signs: HR: 67 bmp Rest BP: 130/70 Regadenoson Peak Dose: 0.4 mg Stress Test Results: Target HR: 147 bmp Symptoms and Complications: Reason for Stopping Test: Protocol completed Stress Induced Symptoms: None <Electronic Signature> 05/06/2024 01:55 PM May Watson M.D. Procedure Note May Watson MD - 05/06/2024 MYOCARDIAL PERFUSION SCAN Pat.Name: Cristine Mendez.ID: [id number] .Date: 05/03/2024 Refer.MD: Светлана, [facility] Exam Time: 9:08:00 AM Study Type:[facility] Height: 65 in Weight: 145 lb BSA: 1.73 m2 Age: 1 1950,74Y Sex: F Sonogrphr: Josesito Willieaishwarya, [facility] Pat. Stat.:Outpatient Reason for Study:Cardiomyopathy, unspecified type Procedures: Study performed at [place], [place] and interpreted by [facility]. Regadenoson Stress, Stress Gated SPECT, Rest SPECT Risk Factors:Hypertension, Smoking ++++++++++++++++++++++++++++++++++++ SUMMARY: ++++++++++++++++++++++++++++++++++++ Mildly Abnormal Perfusion Study. No evidence of ischemia. There is evidence of a small area of mild intensity fixed defect consistent with infarction in the apical anterior wall. There is a mild apical anterior perfusion defect during stress and rest. There is post stress normal wall motion in all sainz. Left ventricular EF is 82 %. The study quality is good. ++++++++++++++++++++++++++++++++++++ FINDINGS: ++++++++++++++++++++++++++++++++++++ Stress Findings: Negative electrocardiographic portion of regadenoson stress test. Impr: Mildly Abnormal Perfusion Study. There is evidence of a small area of mild intensity fixed defect consistent with infarction in the apical anterior wall. Transient Ischemic Dilatation: The TID is 1.08. LV Perfusion Results: There is a mild apical anterior perfusion defect during stress and rest. Gated SPECT Results: Left ventricular EF is 82 %. There is post stress normal wall motion in all sainz. Study Quality/Artifacts: The study quality is good. ++++++++++++++++++++++++++++++++++++ STRESS: ++++++++++++++++++++++++++++++++++++ Baseline Vital Signs: HR: 67 bmp Rest BP: 130/70 Regadenoson Peak Dose: 0.4 mg Stress Test Results: Target HR: 147 bmp Symptoms and Complications: Reason for Stopping Test: Protocol completed Stress Induced Symptoms: None <Electronic Signature> 05/06/2024 01:55 PM May Watson M.D. May Watson MD NUC MED Final Result * CLINIC - 13181 MCT - Today (2024 3:44 PM MANAGER OUTREACH) Narrative [facility] - 2024 3:44 PM MANAGER OUTREACH Baseline Rhythm * The baseline rhythm was First Degree AV Block + Sinus Rhythm with heart rates ranged between 58 and 138 beats per minute, with average rate of 72 beats per minute. A-V Conduction * No Second Degree AV Block Type II. * No Third Degree AV Block. * No Pauses. Supraventricular Arrhythmia * There were 4,822 Supraventricular Ectopic beats with a burden of <1%. * 3 Supraventricular Tachycardia events - the longest episode was 10.0s on 04/08 12:14, and the fastest episode was 120 BPM on 04/04 10:04. Ventricular Arrhythmia * There were 395 Ventricular Ectopic beats with a burden of <1%. * 1 Ventricular Tachycardia events - the longest episode was 2.3s on 04/06 02:10, and the fastest episode was 121 BPM on 04/06 02:10. Atrial Fibrillation * No Atrial Fibrillation. Patient Triggered Events * 31 patient triggered events, 2 had symptoms specified which corresponded with sinus rhythm with 1st degree AVB. Signed MAY WATSON MD, MS, FACC, RVPI [facility] CARDIOVASCULAR PERIDOT, [place] May Watson MD CV VASCULAR ORDERABLES Final Res ult [facility] * USE ECHOCARDIOGRAM (02/21/2024) Anatomical Region Laterality Modality Cardiac Echocardiogram us May Watson MD ECHO Final Result * Colonoscopy (06/03/2023 7:33 AM MANAGER OUTREACH) us Pedrito Mendenhall MD GI PROCEDURE ORDERABLES Final Re sult * LIPID PANEL (09/16/2022 11:25 AM CDT) CHOLESTEROL 154 MG/DL 09/16/2022 12:04 PM CDT [facility] Comment:DESIRABLE: <200 TRIGLYCERIDES 97 MG/DL 09/16/2022 12:04 PM CDT [facility] Comment:<150 NORMAL HDL 64 >49 MG/DL 09/16/2022 12:04 PM CDT [facility] LDL (CALCULATED) 71 MG/DL 09/17/19 12:04 PM CDT [facility] Comment:<100 OPTIMAL VLDL CALCULATION 19 MG/DL 09/17/19 12:04 PM CDT [facility] Comment:REFERENCE RANGE NOT ESTABLISHED CHOL/HDL RATIO 2.4 09/16/2022 12:04 PM CDT [facility] Comment:REFERENCE RANGE NOT ESTABLISHED LDL/HDL 1.1 09/16/2022 12:04 PM CDT [facility] Comment:REFERENCE RANGE NOT ESTABLISHED NON HDL CHOLESTEROL 90 MG/DL 09/16/2022 12:04 PM CDT [facility] Comment:REFERENCE RANGE NOT ESTABLISHED 09/16/2022 11:2 5 AM CDT us Sonia Alfonso [facility] Final Result [facility] [address] [place] [address], [phone] from Last 3 Months or Most Recently Relevant to Health Maintenance Insurance [employer] Advance Directives * Full Code (Latest Code Status on File) Date Activated Date Inactivated Comments 09/18/2022 12:49 PM 09/24/2022 4:04 PM * Full Code Date Activated Date Inactivated Comments 08/24/2022 4:34 AM 08/27/2022 3:14 PM * Full Code Date Activated Date Inactivated Comments 05/20/2022 6:31 PM 05/29/2022 7:28 PM * Full Code Date Activated Date Inactivated Comments 08/23/2020 3:41 PM 08/24/2020 2:12 PM Care Teams Bone Char Kiln Tender Relationship Specialty Start Date End Date Jan Nicole MD [address] [place] [address] PCP - General INTERNAL MEDICINE 10/18/15 Sadie Ribera MD [address] [place] [phone] CLINICAL CARDIAC ELECTROPHYSIOLOGY 10/18/15 Triston Posey MD [address] [place] [phone] CARDIOVASCULAR DISEASE 10/18/15 May Watson MD [address] [place] [address] Consulting Physician CARDIOVASCULAR DISEASE 07/07/23 Millie Vilchis NP [address] [facility]. [address] [place] [address] Nurse Practitioner Nurse Practitioner Acute Care 05/15/24
[2024-05-22 12:33] LABS: Alanine Aminotransferase 31 U/L (14-59); Albumin Level 3.8 g/dL (3.4-5.0); Alkaline Phosphatase 126 U/L (46-116); Anion Gap 11 mmol/L (4-12); Aspartate Amino Transferase 30 U/L (15-37); Bilirubin,Total 0.9 mg/dL (0.00-1.00); Blood Urea Nitrogen 14 mg/dL (7-18); Calcium 9.3 mg/dL (8.5-10.1); Carbon Dioxide 26 mmol/L (21-32); Chloride 103 mmol/L (98-108); Cholesterol 123 mg/dL (0-200); Estimated Glomerular Filt Rate 42; Glucose 138 mg/dL (70-99); HDL Direct 82 mg/dL (40-60); LDL Cholesterol Calculated 28 mg/dL (<130); Osmolality Calculated 292 mOsm/kg (285-295); Potassium 4.6 mmol/L (3.5-5.1); Sodium 140 mmol/L (136-145); Total Protein 7.1 g/dL (6.4-8.2); Triglycerides 63 mg/dL (0-150)
== END 2024-05-22 11:33 | disposition home or self-care (01) ==
LOC: CHSLAB 11:35
PROVIDERS: PCP Internal Medicine
DX: E78.2 Mixed hyperlipidemia (principal); Z95.2 Presence of prosthetic heart valve
CPT/HCPCS: 36415; 80053; 80061

== ENCOUNTER 2024-10-21 21:05 | Emergency (ER) | payer MEDICARE, SELFPAY ==
--- OUTSIDE RECORDS SUMMARY | 2024-10-21 21:07 | XMS_ITS | Encounter Summary ---
Author Organization [facility] Address [facility] [place] [address] Care Team Providers Care Conservation Educator Name Role Phone Jan Nicole MD Primary Care Provider [phone] Sadie Ribera MD Unavailable Triston Posey MD Unavailable [phone] Sangeeta Falcon [facility] Unavailable [phone] Bri Ugarte MD Unavailable Unavailabl e Melina Mclean MD Unavailable Millie Vilchis NP Unavailable [phone] Encounter Details Date Type Department Care Team (Late Contact Info) Description 06/26/2017 Abstract [facility] [address] [place] [address] , Generic Conversion, Social History Tobacco Use Types Packs/Day Years Used Date Smoking Tobacco: Former Cigarettes 1 0 2005 Smokeless Tobacco: Never Alcohol Use Standard Drinks/Week Comments Yes 0 (1 standard drink = 0.6 oz pur e alcohol) Comments Unknown Sex and Gender Information Value Date Recorded Sex Assigned at Female 05/03/2024 7:48 AM SUSTAINABILITY PURCHASING AGENT Legal Sex Female 1:16 AM CDT Gender [...] Care Team (Late st Contact Info) Description 2025 2:30 PM SUSTAINABILITY PURCHASING AGENT Office Visit [facility] [id number] [place] [phone] Melina Mclean MD [address] [place] [address] documented as of this encounter Visit Diagnoses Not on filedocumented in this encounter Additional Health Concerns Infection Onset Date Last Indicated Resolved Time COVID-19 Rule Out 08/20/2020 08/20/2020 08/20/2020 7:31 PM CDT documented as of this encounter Care Teams Conservation Educator Relationship Specialty Start Date End Date Jan Nicole MD [address] [place] [phone] PCP - General INTERNAL MEDICINE 10/18/15 Sadie Ribera MD [address] [place] [phone] CLINICAL CARDIAC ELECTROPHYSIOLOGY 10/18/15 Triston Posey MD [address] [place] [address] [phone] CARDIOVASCULAR DISEASE 10/18/15 Sangeeta Falcon [facility] [address] [place] [phone] Medina [employer] Mill Operator NURSE PRACTITIONER 08/03/16 07/06/23 Bri Ugarte MD [address] [place] [phone] Consulting Physician CARDIOVASCULAR DISEASE 05/11/2307/05 Melina Mclean MD [address] [place] [phone] Consulting Physician CARDIOVASCULAR DISEASE 07/07/23 Millie Vilchis NP [address] [facility]. [address] [place] [address] Nurse Practitioner Nurse Practitioner Acute Care 05/15/24 documented as of this encounter
--- OUTSIDE RECORDS SUMMARY | 2024-10-21 21:07 | XMS_ITS | Encounter Summary ---
Author Organization [facility] Address [facility] [place] [address] Care Team Providers Care Trawl Net Maker Name Role Phone Jan Nicole MD Primary Care Provider [phone] Sadie Ribera MD Unavailable Triston Posey MD Unavailable [phone] Sangeeta Falcon [facility] Unavailable [phone] Bri Ugarte MD Unavailable Unavailabl e Melina Mclean MD Unavailable Millie Vilchis NP Unavailable [phone] Encounter Details Date Type Department Care Team (Late st Contact Info) Description 04/28/2016 Abstract [facility] [address] [place] [address] Sadie Ribera MD [address] [place] [address] Social History Tobacco Use Types Packs/Day Years Used Date Smoking Tobacco: Former Cigarettes Q uit: 2006 Smokeless Tobacco: Never Alcohol Use Standard Drinks/Week Comments No 0 (1 standard drink = 0.6 oz pur e alcohol) Comments Unknown Sex and Gender Information Value Date Recorded Sex Assigned at Female 05/03/2024 7:48 AM TELECOMMUNICATIONS LINESWORKER Legal Sex Female 1:16 AM CDT Gender Identity Not on file Sexual Orientation Not on file Occupation Industry Job Start Date Job End Date Doesnt work Not on file Not on file Not on file documented as of this encounter Plan of Treatment Upcoming Encounters Date Type Department Care Team (Late st Contact Info) Description 2025 2:30 PM TELECOMMUNICATIONS LINESWORKER [facility] [address] [place] [phone] Melina Mclean MD [address] [place] [address] documented as of this encounter Procedures Procedure [...] documented as of this encounter Care Teams Trawl Net Maker Relationship Specialty Start Date End Date Jan Nicole MD [address] [place] [address] PCP - General INTERNAL MEDICINE 10/18/15 Sadie Ribera MD [address] [place] [address] CLINICAL CARDIAC ELECTROPHYSIOLOGY 10/18/15 Triston Posey MD [address] [place] [address] CARDIOVASCULAR DISEASE 10/18/15 Sangeeta Falcon AGACNP-BC [address] [place] [phone] [place] Active Directory Engineer NURSE PRACTITIONER 08/03/16 07/06/23 Bri Ugarte MD [address] [place] [address] Consulting Physician CARDIOVASCULAR DISEASE 05/11/2307/05 Melina Mclean MD [address] [place] [address] Consulting Physician CARDIOVASCULAR DISEASE 07/07/23 Millie Vilchis NP [address] [facility] [address] [place], [place] [address] Nurse Practitioner Nurse Practitioner Acute Care 05/15/24 documented as of this encounter
--- OUTSIDE RECORDS SUMMARY | 2024-10-21 21:07 | XMS_ITS | Encounter Summary ---
Author Organization [facility] Address [facility] [place] [address] Care Team Providers Care Exchange Clerk Name Role Phone Jan Nicole MD Primary Care Provider [phone] Sadie Ribera MD Unavailable Triston Posey MD Unavailable [phone] Sangeeta Falcon [facility] Unavailable [phone] Bri Ugarte MD Unavailable Unavailabl e Melina Mclean MD Unavailable Millie Vilchis NP Unavailable [phone] Encounter Details Date Type Department Care Team (Late st Contact Info) Description 04/29/2016 Abstract [facility] [address] [place] [address] Sadie Ribera MD [address] [place] [address] Social History Tobacco Use Types Packs/Day Years Used Date Smoking Tobacco: Former Cigarettes Q uit: 2006 Smokeless Tobacco: Never Alcohol Use Standard Drinks/Week Comments No 0 (1 standard drink = 0.6 oz pur e alcohol) Comments Unknown Sex and Gender Information Value Date Recorded Sex Assigned at Female 05/03/2024 7:48 AM CREDIT ADVISOR Legal Sex Female 1:16 AM CDT Gender Identity Not on file Sexual Orientation Not on file Occupation Industry Job Start Date Job End Date Doesnt work Not on file Not on file Not on file documented as of this encounter Plan of Treatment Upcoming Encounters Date Type Department Care Team (Late st Contact Info) Description 2025 2:30 PM CREDIT ADVISOR Office Visit [facility] [address] [place] [phone] Melina Mclean MD [address] [place] [address] documented as of this encounter Procedures Procedure [...] documented as of this encounter Care Teams Exchange Clerk Relationship Specialty Start Date End Date Jan Nicole MD [address] [place] [address] PCP - General INTERNAL MEDICINE 10/18/15 Sadie Ribera MD [address] [place] [address] CLINICAL CARDIAC ELECTROPHYSIOLOGY 10/18/15 Triston Posey MD [address] [place] [phone] CARDIOVASCULAR DISEASE 10/18/15 Sangeeta Falcon AGACNP- [address] [place] [phone] [place] [facility] NURSE PRACTITIONER 08/03/16 07/06/23 Bri Ugarte MD [address] [place] [phone] Consulting Physician CARDIOVASCULAR DISEASE 05/11/2307/05 Melina Mclean MD [address] [place] [address] Consulting Physician CARDIOVASCULAR DISEASE 07/07/23 Millie Vilchis, RONALDO [address] [place] [address] [address] [place] [address] Nurse Practitioner Nurse Practitioner Acute Care 05/15/24 documented as of this encounter
--- OUTSIDE RECORDS SUMMARY | 2024-10-21 21:07 | XMS_ITS | Encounter Summary ---
Author Organization [facility] Address [address] [place] [address] Care Team Providers Care Set Up Operator Name Role Phone Jan Nicole MD Primary Care Provider [phone] Sadie Ribera MD Unavailable Triston Posey MD Unavailable [phone] Sangeeta Falcon [facility] Unavailable [phone] Bri Ugarte MD Unavailable Unavailabl e Melina Mclean MD Unavailable Millie Vilchis NP Unavailable [phone] Encounter Details Date Type Department Care Team (Late st Contact Info) Description 09/28/2022 Hospital Follow-up Call [facility] Cardiovascular Care Unit [address] [place] [address] Ana Wright, RN Social History Tobacco Use Types Packs/Day Years Used Date Smoking Tobacco: Every Day Cigarettes 1 55.5 Started: 1969 Smokeless Tobacco: Never Comments:Smoked from [...] often do you attend chur ch or baptism services? 1 to 4 times per year 08/24/2022 Do you belong to any clubs o r organizations such as mu-ism groups, unions, fraternal or athletic groups, or [...] and heating? Not hard at all 09/21/2022 [facility] [place] of Occupat ional Health - Occupational Stress [...] a assisted (including now)? No 09/21/2022 Comments Unknown Sex and Gender Information Value Date Recorded Sex Assigned at Female 05/03/2024 7:48 AM ACTUARIAL ANALYST Legal Sex Female 1:16 AM CDT Gender [...] AM CDT Jumana Orona RN Active * Do you [...] st Contact Info) Description 2025 2:30 PM ACTUARIAL ANALYST Office Visit [facility] [address] [address] Melina Mclean MD [address] [place] [address] documented as of this encounter Goals Goal Patient Goal Type Associated Problems Recent Progress Patient-Stated? Author Safety Patient/family will have appropriate support at home upon discharge Lifestyle Suyapa Kurtz RN Safety Patient/family will have appropriate support at home upon discharge Lifestyle No Suyapa Godwin RN documented as of this encounter Visit Diagnoses Not on filedocumented in this encounter Care Teams Set Up Operator Relationship Specialty Start Date End Date Jan Nicole MD [address] [place] [address] PCP - General INTERNAL MEDICINE 10/18/15 Sadie Ribera MD [address] [place] [address] CLINICAL CARDIAC ELECTROPHYSIOLOGY 10/18/15 Trisotn Posey MD [address] [place] [address] CARDIOVASCULAR DISEASE 10/18/15 Sangeeta Falcon AGACNP- [address] [place] [phone] [employer] [employer] Applications Specialist NURSE PRACTITIONER 08/03/16 07/06/23 Bri Ugarte MD [address] [place] [phone] Consulting Physician CARDIOVASCULAR DISEASE 05/11/2307/05 Melina Mclean MD [address] [place] [address] Consulting Physician CARDIOVASCULAR DISEASE 07/07/23 Millie Vilchis NP [address] [place] [address] [address] [place] [address] Nurse Practitioner Nurse Practitioner Acute Care 05/15/24 documented as of this encounter
--- OUTSIDE RECORDS SUMMARY | 2024-10-21 21:07 | XMS_ITS | Encounter Summary ---
Author Organization [facility] Address [address] [place] [address] Care Team Providers Care Plastic Injection Mold Maker Name Role Phone Jan Nicole MD Primary Care Provider [phone] Sadie Ribera MD Unavailable Triston Posey MD Unavailable [phone] [facility] Unavailable [phone] Bri Ugarte MD Unavailable Unavailabl e Melina Mclean MD Unavailable Millie Vilchis NP Unavailable [phone] Encounter Details Date Type Department Care Team (Late st Contact Info) Description 06/01/2022 Hospital Follow-up Call [facility] Cardiovascular Care Unit [address] [place] [address] Ana Wright, RN Social History Tobacco Use Types Packs/Day Years Used Date Smoking Tobacco: Former Cigarettes 1 970 - 2005 Smokeless Tobacco: Never Alcohol Use [...] slept in a longterm (including now)? No 05/27/2022 Comments Unknown Sex and Gender Information Value Date Recorded Sex Assigned at Female 05/03/2024 7:48 AM SHEET ROCK LAYER Legal Sex Female 1:16 AM CDT Gender [...] Coronavirus/COVID-19? No / Unsure 05/27/2022 2:36 AM SHEET ROCK LAYER documented as of this encounter Functional Status * RETIRED Are you deaf or do you have serious difficulty hearing Answer Date of Assessment Author Status No 05/20/2022 6:45 PM SHEET ROCK LAYER Activ e * RETIRED Are you blind or do you have serious difficulty seeing, even when wearing glasses? Answer Date of Assessment Author Status No 05/20/2022 6:45 PM SHEET ROCK LAYER Activ e * Do you have serious difficulty walking or climbing stairs? Answer Date of Assessment Author Status No 05/20/2022 6:45 PM SHEET ROCK LAYER Deepthi Patel RN Active * Do you have difficulty dressing or bathing? Answer Date of Assessment Author Status No 05/20/2022 6:45 PM Deepthi Kim RN Active * Because of a physical, [...] st Contact Info) Description 2025 2:30 PM SHEET ROCK LAYER Office [facility] [address] Melina Mclean MD [address] [place] [address] documented as of this encounter Goals Goal Patient Goal Type Associated Problems Recent Progress Patient-Stated? Author Safety Patient/family will have appropriate support at home upon discharge Lifestyle No Suyapa Godwin RN documented as of this encounter Visit Diagnoses Not on filedocumented in this encounter Care Teams Plastic Injection Mold Maker Relationship Specialty Start Date End Date Jan Nicole MD [address] [place] [address] PCP - General INTERNAL MEDICINE 10/18/15 Sadie Ribera MD [address] [place] [phone] CLINICAL CARDIAC ELECTROPHYSIOLOGY 10/18/15 Triston Posey MD [address] [place] [phone] CARDIOVASCULAR DISEASE 10/18/15 Sangeeta Falcon, [facility] [address] [place] [phone] [place] Supervisor [employer] NURSE PRACTITIONER 08/03/16 07/06/23 Bri Ugarte MD [address] [place] [phone] Consulting Physician CARDIOVASCULAR DISEASE 05/11/2307/05 Melina Mclean MD [address] [place] [address] Consulting Physician CARDIOVASCULAR DISEASE 07/07/23 Millie Vilchis NP [address] [place] [address] [address] [place], [place] [address] Nurse Practitioner Nurse Practitioner Acute Care 05/15/24 documented as of this encounter
--- OUTSIDE RECORDS SUMMARY | 2024-10-21 21:08 | XMS_ITS | Encounter Summary ---
Author Organization [facility] Address [address] [place] [address] Care Team Providers Care Field Reviewer Name Role Phone Jan Nicole MD Primary Care Provider [phone] Sadie Ribera MD Unavailable Triston Posey MD Unavailable [phone] Sangeeta Falcon [facility] Unavailable [phone] Bri Ugarte MD Unavailable Unavailabl e Melina Mclean MD Unavailable Millie Vilchis NP Unavailable [phone] Encounter Details Date Type Department Care Team (Late st Contact Info) Description 08/21/2020 Hospital Orders Only [facility] Anesthesia [address] [place] [address] Graciela Chapman Anesthesia Record Procedure Summary Procedure [...] Used Date Smoking Tobacco: Former Cigarettes 1 2005 Smokeless Tobacco: Never Alcohol Use Standard Drinks/Week Comments Yes 0 (1 standard drink = 0.6 oz pur e alcohol) Comments Unknown Sex and Gender Information Value Date Recorded Sex Assigned at Female 05/03/2024 7:48 AM DIABETES SOLUTIONS SPECIALIST Legal Sex Female 1:16 AM CDT Gender [...] st Contact Info) Description 2025 2:30 PM DIABETES SOLUTIONS SPECIALIST Office Visit [facility] [address] [address] Melina Mclean MD [address] [place] [address] documented as of this encounter Visit Diagnoses Not on filedocumented in this encounter Care Teams Field Reviewer Relationship Specialty Start Date End Date Jan Nicole MD [address] [place] [address] PCP - General INTERNAL MEDICINE 10/18/15 Sadie Ribera MD [address] [place] [phone] CLINICAL CARDIAC ELECTROPHYSIOLOGY 10/18/15 Triston Posey MD [address] [place] [phone] CARDIOVASCULAR DISEASE 10/18/15 Sangeeta Falcon [facility] [address] [place] [phone] [place] Meat Pumper NURSE PRACTITIONER 08/03/16 07/06/23 Bri Ugarte MD [address] [place] [phone] Consulting Physician CARDIOVASCULAR DISEASE 05/11/2307/05 Melina Mclean MD [address] [place] [address] Consulting Physician CARDIOVASCULAR DISEASE 07/07/23 Millie Vilchis NP [address] [place] [address] [address] [place] [address] Nurse Practitioner Nurse Practitioner Acute Care 05/15/24 documented as of this encounter
--- OUTSIDE RECORDS SUMMARY | 2024-10-21 21:08 | XMS_ITS | Encounter Summary ---
Author Organization [facility] Address [address] [place] [address] Care Team Providers Care Petroleum Production Engineer Name Role Phone Jan Nicole MD Primary Care Provider [phone] Sadie Ribera MD Unavailable Triston Posey MD Unavailable [phone] Sangeeta Falcon [facility] Unavailable [phone] Bri Ugarte MD Unavailable Unavailabl e Melina Mclean MD Unavailable Millie Vilchis NP Unavailable [phone] Encounter Details Date Type Department Care Team (Late st Contact Info) Description 09/10/[address] [facility] Surgical [address] [place] [address] Len Swanson MD [address] [place] [address] Social History Tobacco Use Types [...] How often do you attend chur or scientology services? 1 to 4 times per year 08/24/2022 Do you belong to any clubs o r organizations such as quaker groups, unions, fraternal or athletic groups, or [...] and heating? Not hard at all 08/24/2022 [facility] [place] of Occupat ional Health - Occupational Stress [...] to sleep or slept in a senior living (including now)? No 08/24/2022 Comments Unknown Sex and Gender Information Value Date Recorded Sex Assigned at Female 05/03/2024 7:48 AM CATAPULT AND ARRESTING GEAR OFFICER Legal Sex Female 1:16 AM CDT Gender [...] AM CDT Gabby Bess, RN Active * Because of a physical, mental, or emotional condition, do you have difficulty doing errands alone such as visiting a doctor's office or shopping? Answer Date of Assessment Author Status No 08/24/2022 3:00 AM CDGabby Cerrato, RN Active documented as of this encounter Mental Status * Because of a physical, mental, or emotional condition, do you have serious difficulty concentrating, remembering, or making decisions? Answer Entry Date Author Status No 08/24/2022 3:00 AM CDGabby Cerrato, RN Active documented in this encounter Plan of Treatment Upcoming Encounters Date Type Department Care Team (Late st Contact Info) Description 2025 2:30 PM CATAPULT AND ARRESTING GEAR OFFICER Office Visit [facility] [address] [address] Melina Mclean MD [address] [place] [address] documented as of this encounter Goals Goal Patient Goal Type Associated Problems Recent Progress Patient-Stated? Author Safety Patient/family will have appropriate support at home upon discharge Lifestyle No Suyapa Godwin RN documented as of this encounter Visit Diagnoses Not on filedocumented in this encounter Care Teams Petroleum Production Engineer Relationship Specialty Start Date End Date Jan Nicole MD [address] [place] [address] PCP - General INTERNAL MEDICINE 10/18/15 Sadie Ribera MD [address] [place] [phone] CLINICAL CARDIAC ELECTROPHYSIOLOGY 10/18/15 Triston Posey MD [address] [place] [address] CARDIOVASCULAR DISEASE 10/18/15 Sangeeta Falcon AGACNP- [address] [place] [phone] [place] [employer] Deliverables Manager NURSE PRACTITIONER 08/03/16 07/06/23 Bri Ugarte MD [address] [place] [phone] Consulting Physician CARDIOVASCULAR DISEASE 05/11/2307/05 Melina Mclean MD [address] [place] [address] Consulting Physician CARDIOVASCULAR DISEASE 07/07/23 Millie Vilchis NP [address] [place] [address] [address] [place] [address] Nurse Practitioner Nurse Practitioner Acute Care 05/15/24 documented as of this encounter
--- OUTSIDE RECORDS SUMMARY | 2024-10-21 21:08 | XMS_ITS | Encounter Summary ---
Author Organization [facility] Address [address] [place] [address] Care Team Providers Care Postulant Name Role Phone Jan Nicole MD Primary Care Provider [phone] Sadie Ribera MD Unavailable Triston Posey MD Unavailable [phone] Sangeeta Falcon [facility] Unavailable [phone] Bri Ugarte MD Unavailable Unavailabl e Melina Mclean MD Unavailable Millie Vilchis NP Unavailable [phone] Encounter Details Date Type Department Care Team (Late st Contact Info) Description 08/31/2022 Hospital Follow-up Call [facility] Cardiovascular Care Unit [address] [place] [address] Ana Wright, RN Social History [...] often do you attend chur ch or methodist services? 1 to 4 times per year [...] and heating? Not hard at all 08/24/2022 [facility] [place] of Occupat ional Health - Occupational Stress [...] place to sleep or slept in a [facility] (including now)? No 08/24/2022 Comments Unknown Sex and Gender Information Value Date Recorded Sex Assigned at Female 05/03/2024 7:48 AM PRISON GUARD SUPERVISOR Legal Sex Female 1:16 AM CDT Gender [...] No 08/24/2022 3:00 AM CDT Gabby Bess R N Active * Because of a physical, mental, [...] Author Status No 08/24/2022 3:00 AM Gabby Pindea RN Active documented in this encounter Plan of Treatment Upcoming Encounters Date Type Department Care Team (Late st Contact Info) Description 2025 2:30 PM PRISON GUARD SUPERVISOR Office Visit [facility] [address] [phone] Melina Mclean MD [address] [place] [address] documented as of this encounter Goals Goal Patient Goal Type Associated Problems Recent Progress Patient-Stated? Author Safety Patient/family will have appropriate support at home upon discharge Lifestyle No Suyapa Godwin RN documented as of this encounter Visit Diagnoses Not on filedocumented in this encounter Care Teams Postulant Relationship Specialty Start Date End Date Jan Nicole MD [address] [place] [address] PCP - General INTERNAL MEDICINE 10/18/15 Sadie Ribera MD [address] [place] [phone] CLINICAL CARDIAC ELECTROPHYSIOLOGY 10/18/15 Triston Posey MD [address] [place] [phone] CARDIOVASCULAR DISEASE 10/18/15 Sangeeta Falcon [facility] [address] [place] [phone] [place] [employer] Products Installer NURSE PRACTITIONER 08/03/16 07/06/23 Bri Ugarte MD [address] [place] [address] Consulting Physician CARDIOVASCULAR DISEASE 05/11/2307/05 Melina Mclean MD [address] [place], [place] [address] Consulting Physician CARDIOVASCULAR DISEASE 07/07/23 Millie Vilchis NP [address] [facility] [address] [place], [place] [address] Nurse Practitioner Nurse Practitioner Acute Care 05/15/24 documented as of this encounter
--- OUTSIDE RECORDS SUMMARY | 2024-10-21 21:08 | XMS_ITS ---
Author Organization Unknown Address [address] [place] [phone] Phone Care Team Providers Care Roving Inspector Name Role Phone SHIRLEY OLVERA Attending Unavailable [...] 30 mcg/0.3 mL 01/12/2024 Completed 309 CVX Results US ECHO W/ COLOR - Completed : 02/21/2024 09:45 LOINC: See Scanned Image Attachment for Report Dictated By: Trans Initials: BG Trans Date: 02/25/24 12:02 <<REPDIST>> Social History Type Status Start Date End Date Code Code Syst em Sex Female Hospital Discharge Instructions Should you have any questions prior to discharge, please contact a member of your healthcare team. If you have left the hospital and have any questions, please contact your primary care physician. Reason For Referral No Data Found Plan of Treatment US Echo With Color (17104) 02/21/2024 US Echo With Color (05635) 02/22/2025 Encounters Encounter Diagnosis Start Date Code Code Sys tem Mixed hyperlipidemia 02/21/2024 SNOMED- CT Personal Care Team Section Performer Name Performer Role Active Date Inactive Da HOLA Rodriguez PCP - Primary care physician 2024-01-06 Imaging Narrative Notes [facility] 02/25/2024 12:[address] [address] RADIOLOGY REPORT Patient Number: [id number] Patient Name: VANESSA RG Type: O/P MR Number: [id number] : 1950 Age: 73 Sex: F Room #: Admit Date: 02/21/24 Discharge Date 02/21/24 Ordering Physician: SHIRLEY OLVERA Family Physician: DEANDRA MAN Second Physician: X-Ray Number : [id number] US ECHO W/ COLOR [id number] COMPLETE:02/21/24 09:45 JDF [id number] (REASON-ECHO COMPLTE: MITRO VALVE PROSTHESIS See Scanned Image Attachment for Report Dictated By: Maikel Initials: BG Ko Date: 02/25/24 12:02 <<REPDIST>>
--- OUTSIDE RECORDS SUMMARY | 2024-10-21 21:08 | XMS_ITS | Clinical Summary ---
Author Organization [facility] Address [address] [place] [address] Care Team Providers Care Executive Housekeeper Name Role Phone Jan Nicole MD Primary Care Provider [phone] Sadie Ribera MD Unavailable Triston Posey MD Unavailable [phone] Melina Mclean MD Unavailable Millie Vilchis NP Unavailable [phone] Allergies No known active allergies Medications vitamin B-12 (CYANOCOBALAMIN) (CYANOCOBALAMIN) 1000 mcg tablet Take 1 tablet (1,000 mcg total) by mouth daily. Active magnesium 250 MG tablet Take 1 tablet (250 mg total) by mouth daily. Active Ferrous Sulfate (IRON) 325 (65 Fe) MG tablet Take 325 mg by mouth daily with breakfast. Active famotidine (PEPCID) 20 MG tablet TAKE ONE TABLET BY MOUTH AT BEDTIME D/C'D RX 06-03-23 60 tablet 00 4 Active DULoxetine (CYMBALTA) 30 MG capsule Take 1 capsule (30 mg total) by mouth daily. 4 Active aspirin EC (ECOTRIN) 81 MG tablet Take 1 tablet (81 mg total) by mouth daily. Active metoprolol tartrate (LOPRESSOR) 25 MG tabletIndications :Rapid atrial fibrillation (CMS/HCC HHS/HCC) Take 0.5 tablets (12.5 mg total) by mouth 2 (two) times daily. 30 tablet 11 Active Active Problems Problem Noted Date Diagnosed Date History of mitral valve prosthesis 12/24/2022 Hyperlipidemia, unspecified hyperlipidemia type 12/24/2022 Tobacco abuse 12/24/2022 CAD (coronary artery disease) 09/18/2022 Rapid atrial fibrillation ([facility]) 02/11/2022 Atrial fibrillation with RVR ([facility]) 0 05/20/2022 Atypical atrial flutter ([facility]) 2018 exterminator termite current use of antiarrhythmic drug Atrioventricular bloc first degree 07/31/2016 Right bundle branch block 04/24/2016 Persistent atrial fibrillation ([facility]) 10/09/2015 exterminator termite current use of anticoagulant therapy 0 10/09/2015 Bifascicular block 10/09/2015 Encounters Date Type Department Care Team Description 07/26/2024 11:59 AM CDT Anesthesia Event [place] [address] [place] [address] Mehul Cope CRNA 07/26/2024 11:15 AM CDT - 07/26/2024 11:40 AM CDT Surgery [place] [address] [place] [address] Concepción Horan MD extraction cataract LEFT eye with lens implant 07/26/2024 10:58 AM CDT - 07/26/2024 12:48 PM CDT Hospital Encounter [place] [address] [place] [address] Concepción Horan MD Discharge Disposition: Home or Self Care (Routine Discharge) 07/26/2024 Travel from Last 3 Months Family History Medical [...] Tobacco: Every Day Cigarettes 1 55.5 Started: 1970 Smokeless Tobacco: Never Tobacco Cessation:Ready to Q uit: Not Asked; Counseling Given: Not Answered Comments:Smoked from 1970 to 2005, restarted 2019 Alcohol Use Standard Drinks/Week Comments Not Currently 0 (1 standard drink = 0.6 oz pur e alcohol) once a month Humiliation, Afraid, Rape, and Kick questionnair e [...] How often do you attend chur or yarsanism services? 1 to 4 times per year 08/24/2022 Do you belong to any clubs o r organizations such as voodoo groups, unions, fraternal or athletic groups, or [...] and heating? Not hard at all 09/21/2022 [facility] [place] of Occupat ional Health - Occupational Stress [...] place to sleep or slept in a jail (including now)? No 09/21/2022 Comments No Sex and Gender Information Value Date Recorded Sex Assigned at Female 05/03/2024 7:48 AM HI LIFT OPERATOR Legal Sex Female 1:16 AM CDT Gender Identity Not on file Sexual Orientation Not on file Occupation Industry Job Start Date Job End Date Doesnt work Not on file Not on file Not on file Not on file Not on file Not on file Not on file Last Filed Vital Signs Vital Sign Reading Time Taken Comments Blood Pressure 137/58 07/26/2024 12:20 PM CDT Pulse 67 07/26/2024 12:20 PM CDT Temperature 36.1 C (97 F) 07/26/2024 12:20 PM CDT Respiratory Rate 18 07/26/2024 12:20 PM CDT Oxygen Saturation 100% 07/26/2024 12:20 PM CDT Inhaled Oxygen Concentration - - Weight 74.8 kg (165 lb) 07/20/2024 1:22 PM CDT Height 162.6 cm (5' 4) 07/20/2024 1:22 PM CDT Body Mass Index 28.32 07/20/2024 1:22 PM CDT Plan of Treatment Upcoming Encounters Date Type Department Care Team (Late st Contact Info) Description 2025 2:30 PM HI LIFT OPERATOR Office Visit [facility] [phone] Melina Mclean MD [address] [place] [address] Health Maintenance Due Date Last Done Comments ASCVD Statin 1951 Hepatitis C 1969 Mammogram Screening 1991 Lung Cancer Screening 2001 RSV Immunization or 60+ Years (1 - Risk 60-74 years 1-dose series) 2011 Annual Medicare Wellness Visit 2016 Dexa Scan (General) 2016 Zoster Vaccines (2 of 2) 12/02/2020 10/07/2020 COVID-19 Vaccine ( season) 2024 01/12/2024, 08/29/2021, 02/04/2021, Additional history exists DTaP, Tdap and Td Vaccines (3 - Td or Tdap) 12/15/2027 12/14/2017, 02/29/2008 Colorectal Cancer Screening Colonoscopy (10 Years) 06/03/2033 06/03/2023, 06/03/2023 Meningococcal Vaccine Aged Out 09/28/2007 No yamel monster eligible based on patient's age to complete this topic Pneumococcal Vaccine: 50+ Years Completed 02/11/2018, 01/24/2015, 08/31/2007 Meningococcal B Vaccine Aged Out No l [...] Godwin RN Medical Devices Implanted Type Area Mutuel Department Manager Device Identifier Shelf Expiration Date Model / Serial / Lot Valve Mitral C-E 25mm - [id number] Implanted:Qty: 1 on 09/18/2022 by eLn Swanson MD at [facility] Valve Implant [employer] [id number] 06/17/2024 [id number] / [id number] / Description:Inventory notifi ed--Danica Becure 45 Implanted:Qty: 1 on 09/18/2022 by Len Swanson MD at [facility] [id number] 05/13/2025 / / [id number] Techn[employer] Simplicity Iol Implanted:Qty: 1 on 06/28/2024 by Concepción Horan MD at [facility] Right: Eye [id number] 01/25/2027 [id number] / [id number] / [id number] [employer]is Simplicity Iol Implanted:Qty: 1 on 07/26/2024 by Concepción Horan MD at [facility] Left: Eye [id number] 09/27/2026 / [id number] / [id number] Procedures Procedure Name Priority Date/Time Associated Diagnosis Comments REMV CATARACT EXTRACAP,INSERT LENS 07/26/2024 11:54 AM CDT h25.9 COLONOSCOPY Routine 06/03/2023 7:33 AM HI LIFT OPERATOR from Last 3 Months or Most Recently Relevant to Health Maintenance Results * Colonoscopy (06/03/2023 7:33 AM HI LIFT OPERATOR) us Pedrito Mendenhall MD GI PROCEDURE ORDERABLES Final Re sult from Last 3 Months or Most Recently [...] 3:41 PM 08/24/2020 2:12 PM Care Teams Executive Housekeeper Relationship Specialty Start Date End Date Jan Nicole MD [address] [place] [address] PCP - General INTERNAL MEDICINE 10/18/15 Sadie Ribera MD [address] [place] [address] CLINICAL CARDIAC ELECTROPHYSIOLOGY 10/18/15 Triston Posey MD [address] [place] [phone] CARDIOVASCULAR DISEASE 10/18/15 Melina Mclean MD [address] [place] [address] Consulting Physician CARDIOVASCULAR DISEASE 07/07/23 Millie Vilchis NP [address] [place] [address] [address] [place] [address] Nurse Practitioner Nurse Practitioner Acute Care 05/15/24
--- OUTSIDE RECORDS SUMMARY | 2024-10-21 21:08 | XMS_ITS ---
Author Organization Unknown Address [address] [place] [phone] Phone Care Team Providers Care Experimental Mechanic Spacecraft Name Role Phone SHIRLEY OLVERA Attending Unavailable [...] Plan of Treatment US Echo With Color (74665) 02/21/2024 US Echo With Color (21841) 02/22/2025 Encounters Encounter Diagnosis Start Date Code Code Sys tem Right bundle branch block 01/06/2024 [id number] SN OMED-CT Personal Care Team Section Performer Name Performer Role Active Date Inactive HOLA Cullen PCP - Primary care physician 2024-01-06
--- NOTE | 2024-10-21 21:22 | ED_ITS ---
HPI - Extremity Problem General Chief complaint: Extremity Problem,Nontraumatic Stated complaint: Pain in R Leg Time Seen by Provider: 10/21/24 21:19 Source: patient Mode of arrival: ambulatory Limitations: no limitations History of Present Illness HPI Narrative: this is a 74-year-old female with a history of some CAD presents with some lower right extremity tingling no numbness no pain no known injuries no back pain patient is a smoker. There is no calf pain no calf swelling no warmth or tenderness no redness or erythema has good strong pulses in the pedal pulse on the right. MD Complaint: extremity pain Onset (ago): hour(s) Pain Consistency: intermittent Location: right and lower extremity Related Data Home Medications ?Medication ?Instructions ?Recorded ?Confirmed ?Last Taken ?Type Vitamin B-12 1 mg PO DAILY 08/23/22 11/18/22 Unknown History duloxetine 20 mg capsule,delayed 20 mg PO DAILY 08/23/22 11/18/22 Unknown History release furosemide 40 mg tablet 40 mg PO PRN 08/23/22 11/18/22 Unknown History magnesium oxide 400 mg PO BID 08/23/22 11/18/22 Unknown History potassium chloride 20 mEq 20 meq PO PRN 08/23/22 11/18/22 Unknown History tablet,extended release(part/cryst) warfarin 5 mg tablet See Rx Instructions .Route .COMPLEX 08/23/22 08/23/22 Unknown History amiodarone 200 mg tablet 200 mg PO DAILY 11/18/22 11/18/22 Unknown History aspirin 81 mg tablet,delayed 81 mg PO DAILY 11/18/22 11/18/22 Unknown History release famotidine 20 mg tablet 20 mg PO DAILY 11/18/22 11/18/22 Unknown History ipratropium 20 mcg-albuterol 100 1 puff inhalation QID 11/18/22 11/18/22 Unknown History mcg/actuation mist for inhalation metoprolol tartrate 25 mg tablet 12.5 mg PO BID 11/18/22 11/18/22 Unknown History warfarin 2.5 mg tablet See Rx Instructions .Route .COMPLEX 11/18/22 11/18/22 Unknown History Allergies Allergy/AdvReac Type Severity Reaction Status Date / Time No Known Allergies Allergy Verified 05/20/22 12:31 Review of Systems Review of Systems: All systems reviewed & are unremarkable except as noted in HPI and below PMFSH Past Medical History Medical History Atrial fibrillation Surgical History Surgical History H/O splenectomy Exam Const: General: healthy appearing Nutritional Appearance: well nourished Orientation/consciousness: patient oriented x3 Limitations: no limitations Neck: Neck: normal visual inspection, no lymphadenopathy and no meningeal signs Chest: Chest palpation & inspection: normal inspection of the chest Resp: Effort & Inspection: normal respiratory effort Auscultation: clear to auscultation bilaterally Cardio: Rate: regular rate Rhythm: abnormal rhythm GI: GI Palp: Yes Soft to palpation Auscultation: normal bowel sounds : General: Yes bladder normal to palpation Urinary Catheter: Urinary Catheter: patent and draining Back/Spine/Pelvis: Back: no CVA tenderness Skin: General skin exam: normal color Rashes: no rashes Wounds: no wounds Neuro: General: patient oriented x3, moves all extremities and no meningeal signs Extrem: General: normal to inspection Course Course Emergency Course: Patient with some right lower leg tingling with good range of no armenta no sciatic problems no back pain elicited has good pedal pulse on the right administered 80mg IM Depo-Medrol and will send prescription steroid the patient's pharmacy can take Tylenol as needed advised follow-up with her primary care Critical Care Time Critical Care Time Critical Care Time: No Discharge Plan Discharge Clinical Impression: Neuropathy Patient Disposition: Home Condition: Stable Instructions: Antibiotic Form, Peripheral Neuropathy (ED) Additional Instructions: take medication as prescribed and follow with primary care physician within the next 2 to 3 days further evaluation and treatment. Patient Language: Albanian Prescriptions: New methylprednisolone [Medrol (Dejuan)] 4 mg tablets,dose pack See Rx Instructions .ROUTE .COMPLEX Qty: 21 0RF Rx Instructions: for 6 days No Action furosemide 40 mg tablet 40 mg PO PRN potassium chloride 20 mEq tablet,ER particles/crystals 20 meq PO PRN Rx Instructions: Take with furosemide if weight increased 2lb or feel water retention warfarin 5 mg tablet See Rx Instructions .ROUTE .COMPLEX Rx Instructions: 5 mg orally ;alternate with 2.5mg duloxetine 20 mg capsule,delayed release(DR/EC) 20 mg PO DAILY Vitamin B-12 1 mg PO DAILY magnesium oxide 400 mg PO BID amiodarone 200 mg Tablet 200 mg PO DAILY warfarin 2.5 mg Tablet See Rx Instructions .ROUTE .COMPLEX Rx Instructions: 2.5 mg orally ;Alternate with 5mg aspirin [Adult Aspirin EC Low Strength] 81 mg Tablet,Delayed Release (Dr/Ec) 81 mg PO DAILY famotidine 20 mg Tablet 20 mg PO DAILY metoprolol tartrate 25 mg Tablet 12.5 mg PO BID ipratropium-albuterol 20-100 mcg/actuation Mist 1 puff INHALATION QID Rx Instructions: space evenly during waking hours Follow-up/Referrals: Jan Nicole MD [Primary Care Provider] - Time of Disposition: 21:27
[2024-10-21] MEDS: methylPREDNISolone ACETATE 40 MG/ML VIAL 80 MG IM (21:34)
--- OUTSIDE RECORDS SUMMARY | 2024-10-21 21:46 | XMS_ITS | Encounter Summary ---
Author Organization [facility] Address [address] [place] [address] Care Team Providers Care Drier Helper Name Role Phone Jan Nicole MD Primary Care Provider [phone] Sadie Ribera MD Unavailable Triston Posey MD Unavailable [phone] [facility] Unavailable [phone] Bri Ugarte MD Unavailable Unavailabl e Melina Mclean MD Unavailable Millie Vilchis NP Unavailable [phone] Encounter Details Date Type Department Care Team (Late st Contact Info) Description 08/31/2022 Hospital Follow-up Call [facility] Cardiovascular Care Unit [address] [place] [address] Ana rWight, RN Social History Tobacco Use Types Packs/Day [...] any clubs o r organizations such as adventist groups, unions, fraternal or athletic groups, or [...] and heating? Not hard at all 08/24/2022 [facility] [place] of Occupat ional Health - Occupational Stress [...] place to sleep or slept in a alf (including now)? No 08/24/2022 Comments Unknown Sex and Gender Information Value Date Recorded Sex Assigned at Female 05/03/2024 7:48 AM HEALTH SCIENCES MANAGER Legal Sex Female 1:16 AM CDT Gender [...] st Contact Info) Description 2025 2:30 PM HEALTH SCIENCES MANAGER Office Visit [facility] [address] [phone] Melina Mclean MD [address] [place] [address] documented as of this encounter Goals Goal Patient Goal Type Associated Problems Recent Progress Patient-Stated? Author Safety Patient/family will have appropriate support at home upon discharge Lifestyle No Suyapa Godwin RN documented as of this encounter Visit Diagnoses Not on filedocumented in this encounter Care Teams Drier Helper Relationship Specialty Start Date End Date Jan Nicole MD [address] [place] [address] PCP - General INTERNAL MEDICINE 10/18/15 Sadie Ribera MD [address] [place] [phone] CLINICAL CARDIAC ELECTROPHYSIOLOGY 10/18/15 Triston Posey MD [address] [place] [phone] CARDIOVASCULAR DISEASE 10/18/15 [facility] [address] [place] [phone] [place] [employer] Worker Supervisor NURSE PRACTITIONER 08/03/16 07/06/23 Bri Ugarte MD [address] [place] [address] Consulting Physician CARDIOVASCULAR DISEASE 05/11/2307/05 Melina Mclean MD [address] [place], [place] [address] Consulting Physician CARDIOVASCULAR DISEASE 07/07/23 Millie Vilchis NP [address] [facility] [address] [place], [place] [address] Nurse Practitioner Nurse Practitioner Acute Care 05/15/24 documented as of this encounter
--- OUTSIDE RECORDS SUMMARY | 2024-10-21 21:46 | XMS_ITS | Encounter Summary ---
Author Organization [facility] Address [address] [place] [address] Care Team Providers Care Asp Net Mvc Developer Name Role Phone Jan Nicole MD Primary Care Provider [phone] Sadie Ribera MD Unavailable Triston Posey MD Unavailable [phone] Sangeeta Falcon [facility] Unavailable [phone] Bri Ugarte MD Unavailable Unavailabl e Melina Mclean MD Unavailable Millie Vilchis NP Unavailable [phone] Encounter Details Date Type Department Care Team (Late st Contact Info) Description 09/28/2022 Hospital Follow-up Call [facility] Cardiovascular Care Unit [address] [place] [address] Ana Wright, RN Social History [...] any clubs o r organizations such as buddhist groups, unions, fraternal or athletic groups, or [...] and heating? Not hard at all 09/21/2022 [facility] [place] of Occupat ional Health - Occupational Stress [...] place to sleep or slept in a care home (including now)? No 09/21/2022 Comments Unknown Sex and Gender Information Value Date Recorded Sex Assigned at Female 05/03/2024 7:48 AM SENIOR SOLUTIONS CONSULTANT Legal Sex Female 1:16 AM CDT Gender [...] st Contact Info) Description 2025 2:30 PM SENIOR SOLUTIONS CONSULTANT Office Visit [facility] [address] [phone] Melina Mclean MD [address] [place] [address] documented as of this encounter Goals Goal Patient Goal Type Associated Problems Recent Progress Patient-Stated? Author Safety Patient/family will have appropriate support at home upon discharge Lifestyle Suyapa Kurtz RN Safety Patient/family will have appropriate support at home upon discharge Lifestyle No Suyapa Godwin RN documented as of this encounter Visit Diagnoses Not on filedocumented in this encounter Care Teams Asp Net Mvc Developer Relationship Specialty Start Date End Date Jan Nicole MD [address] [place] [address] PCP - General INTERNAL MEDICINE 10/18/15 Sadie Ribera MD [address] [place] [phone] CLINICAL CARDIAC ELECTROPHYSIOLOGY 10/18/15 Triston Posey MD [address] [place] [phone] CARDIOVASCULAR DISEASE 10/18/15 Sangeeta Falcon AGACNP- [address] [place] [phone] [place] Change Analyst NURSE PRACTITIONER 08/03/16 07/06/23 Bri Ugarte MD [address] [place] [phone] Consulting Physician CARDIOVASCULAR DISEASE 05/11/2307/05 Melina Mclean MD [address] [place] [address] Consulting Physician CARDIOVASCULAR DISEASE 07/07/23 Millie Vilchis NP [address] [place] [address] [address] [place] [address] Nurse Practitioner Nurse Practitioner Acute Care 05/15/24 documented as of this encounter
--- OUTSIDE RECORDS SUMMARY | 2024-10-21 21:46 | XMS_ITS ---
Author Organization Unknown Address [address] [place] [phone] Phone Care Team Providers Care Core Rescuer Name Role Phone SHIRLEY OLVERA Attending Unavailable [...] Plan of Treatment US Echo With Color (04564) 02/21/2024 US Echo With Color (42097) 02/22/2025 Encounters Encounter Diagnosis Start Date Code Code Sys tem Right bundle branch block 01/06/2024 [id number] SN OMED-CT Personal Care Team Section Performer Name Performer Role Active Date Inactive HOLA Cullen PCP - Primary care physician 2024-01-06
--- OUTSIDE RECORDS SUMMARY | 2024-10-21 21:46 | XMS_ITS | Encounter Summary ---
Author Organization [facility] Address [facility] [place] [address] Care Team Providers Care Political Worker Name Role Phone Jan Nicole MD Primary Care Provider [phone] Sadie Ribera MD Unavailable Triston Posey MD Unavailable [phone] [facility] Unavailable [phone] Bri Ugarte MD Unavailable Unavailabl e Melian Mclean MD Unavailable Millie Vilchis NP Unavailable [phone] Encounter Details Date Type Department Care Team (Late st Contact Info) Description 04/28/2016 Abstract [facility] [address] [place] [address] Sadie Ribera MD [address] [place] [address] Social History Tobacco Use Types Packs/Day Years Used Date Smoking Tobacco: Former Cigarettes Q uit: 2006 Smokeless Tobacco: Never Alcohol Use Standard Drinks/Week Comments No 0 (1 standard drink = 0.6 oz pur e alcohol) Comments Unknown Sex and Gender Information Value Date Recorded Sex Assigned at Female 05/03/2024 7:48 AM INSURANCE ADJUSTER Legal Sex Female 1:16 AM CDT Gender Identity Not on file Sexual Orientation Not on file Occupation Industry Job Start Date Job End Date Doesnt work Not on file Not on file Not on file documented as of this encounter Plan of Treatment Upcoming Encounters Date Type Department Care Team (Late st Contact Info) Description 2025 2:30 PM INSURANCE ADJUSTER [facility] [address] [place] [phone] Melina Mclean MD [address] [place] [address] documented as of this encounter Procedures Procedure [...] documented as of this encounter Care Teams Political Worker Relationship Specialty Start Date End Date Jan Nicole MD [address] [place] [address] PCP - General INTERNAL MEDICINE 10/18/15 Sadie Ribera MD [address] [place] [address] CLINICAL CARDIAC ELECTROPHYSIOLOGY 10/18/15 Triston Posey MD [address] [place] [address] CARDIOVASCULAR DISEASE 10/18/15 Sangeeta Falcon AGACNP-BC [address] [place] [phone] [place] Partner NURSE PRACTITIONER 08/03/16 07/06/23 Bri Ugarte MD [address] [place] [address] Consulting Physician CARDIOVASCULAR DISEASE 05/11/2307/05 Melina Mclean MD [address] [place] [address] Consulting Physician CARDIOVASCULAR DISEASE 07/07/23 Millie Vilchis NP [address] [facility] [address] [place], [place] [address] Nurse Practitioner Nurse Practitioner Acute Care 05/15/24 documented as of this encounter
--- OUTSIDE RECORDS SUMMARY | 2024-10-21 21:46 | XMS_ITS | Encounter Summary ---
Author Organization [facility] Address [facility] [place] [address] Care Team Providers Care Supervisor Drying And Softening Name Role Phone Jan Nicole MD Primary Care Provider [phone] Sadie Ribera MD Unavailable Triston Posey MD Unavailable [phone] Sangeeta Falcon [facility] Unavailable [phone] Bri Ugarte MD Unavailable Unavailabl e Melina Mclean MD Unavailable Millie Vilchis NP Unavailable [phone] Encounter Details Date Type Department Care Team (Late Contact Info) Description 06/26/2017 Abstract [facility] [address] [place] [address] , Generic Conversion, Social History Tobacco Use Types Packs/Day Years Used Date Smoking Tobacco: Former Cigarettes 1 0 2005 Smokeless Tobacco: Never Alcohol Use Standard Drinks/Week Comments Yes 0 (1 standard drink = 0.6 oz pur e alcohol) Comments Unknown Sex and Gender Information Value Date Recorded Sex Assigned at Female 05/03/2024 7:48 AM FURNITURE TECHNICIAN Legal Sex Female 1:16 AM CDT Gender [...] st Contact Info) Description 2025 2:30 PM FURNITURE TECHNICIAN Office Visit [facility] [id number] [place] [phone] Melina Mclean MD [address] [place] [address] documented as of this encounter Visit Diagnoses Not on filedocumented in this encounter Additional Health Concerns Infection Onset Date Last Indicated Resolved Time COVID-19 Rule Out 08/20/2020 08/20/2020 08/20/2020 7:31 PM CDT documented as of this encounter Care Teams Supervisor Drying And Softening Relationship Specialty Start Date End Date Jan Nicole MD [address] [place] [phone] PCP - General INTERNAL MEDICINE 10/18/15 Sadie Ribera MD [address] [place] [phone] CLINICAL CARDIAC ELECTROPHYSIOLOGY 10/18/15 Triston Posey MD [address] [place] [phone] CARDIOVASCULAR DISEASE 10/18/15 Sangeeta Falcon [facility] [address] [place] [phone] [employer] Farmworker NURSE PRACTITIONER 08/03/16 07/06/23 Bri Ugarte MD [address] [place] [phone] Consulting Physician CARDIOVASCULAR DISEASE 05/11/2307/05 Melina Mclean MD [address] [place] [address] Consulting Physician CARDIOVASCULAR DISEASE 07/07/23 Millie Vilchis NP [address] [facility]. [address] [place] [address] Nurse Practitioner Nurse Practitioner Acute Care 05/15/24 documented as of this encounter
--- OUTSIDE RECORDS SUMMARY | 2024-10-21 21:46 | XMS_ITS | Encounter Summary ---
Author Organization [facility] Address [facility] [place] [address] Care Team Providers Care Program Manufacturing Leader Name Role Phone Jan Nicole MD Primary Care Provider [phone] Sadie Ribera MD Unavailable Triston Posey MD Unavailable [phone] Sangeeta Falcon [facility] Unavailable [phone] Bri Ugarte MD Unavailable Unavailabl e Melina Mclean MD Unavailable Millie Vilchis NP Unavailable [phone] Encounter Details Date Type Department Care Team (Late st Contact Info) Description 04/29/2016 Abstract [facility] [address] [place] [address] Sadie Ribera MD [address] [place] [address] Social History Tobacco Use Types Packs/Day Years Used Date Smoking Tobacco: Former Cigarettes Q uit: 2006 Smokeless Tobacco: Never Alcohol Use Standard Drinks/Week Comments No 0 (1 standard drink = 0.6 oz pur e alcohol) Comments Unknown Sex and Gender Information Value Date Recorded Sex Assigned at Female 05/03/2024 7:48 AM FOXPRO DEVELOPER Legal Sex Female 1:16 AM CDT Gender Identity Not on file Sexual Orientation Not on file Occupation Industry Job Start Date Job End Date Doesnt work Not on file Not on file Not on file documented as of this encounter Plan of Treatment Upcoming Encounters Date Type Department Care Team (Late st Contact Info) Description 2025 2:30 PM FOXPRO DEVELOPER Office Visit [facility] [address] [place] [phone] Melina Mclean MD [address] [place] [address] documented as of this encounter Procedures Procedure [...] documented as of this encounter Care Teams Program Manufacturing Leader Relationship Specialty Start Date End Date Jan Nicole MD [address] [place] [address] PCP - General INTERNAL MEDICINE 10/18/15 Sadie Ribera MD [address] [place] [address] CLINICAL CARDIAC ELECTROPHYSIOLOGY 10/18/15 Triston Posey MD [address] [place] [phone] CARDIOVASCULAR DISEASE 10/18/15 Sangeeta Falcon AGACNP- [address] [place] [phone] [place] Emr Trainer NURSE PRACTITIONER 08/03/16 07/06/23 Bri Ugarte MD [address] [place] [phone] Consulting Physician CARDIOVASCULAR DISEASE 05/11/2307/05 Melina Mclean MD [address] [place] [address] Consulting Physician CARDIOVASCULAR DISEASE 07/07/23 Millie Vilchis, RONALDO [address] [place] [address] [address] [place] [address] Nurse Practitioner Nurse Practitioner Acute Care 05/15/24 documented as of this encounter
--- OUTSIDE RECORDS SUMMARY | 2024-10-21 21:46 | XMS_ITS | Encounter Summary ---
Author Organization [facility] Address [address] [place] [address] Care Team Providers Care Tool Pusher Name Role Phone Jan Nicole MD Primary Care Provider [phone] Sadie Ribera MD Unavailable Triston Posey MD Unavailable [phone] Sangeeta Falcon [facility] Unavailable [phone] Bri Ugarte MD Unavailable Unavailabl e Melina Mclean MD Unavailable Millie Vilchis NP Unavailable [phone] Encounter Details Date Type Department Care Team (Late st Contact Info) Description 06/01/2022 Hospital Follow-up Call [facility] [address] [place] [address] Ana Wright, RN Social History [...] place to sleep or slept in a skilled nursing (including now)? No 05/27/2022 Comments Unknown Sex and Gender Information Value Date Recorded Sex Assigned at Female 05/03/2024 7:48 AM DIRECTOR OF BILLING Legal Sex Female 1:16 AM CDT Gender [...] Coronavirus/COVID-19? No / Unsure 05/27/2022 2:36 AM DIRECTOR OF BILLING documented as of this encounter Functional Status * RETIRED Are you deaf or do you have serious difficulty hearing Answer Date of Assessment Author Status No 05/20/2022 6:45 PM DIRECTOR OF BILLING Activ e * RETIRED Are you blind or do you have serious difficulty seeing, even when wearing glasses? Answer Date of Assessment Author Status No 05/20/2022 6:45 PM DIRECTOR OF BILLING Activ e * Do you have serious difficulty walking or climbing stairs? Answer Date of Assessment Author Status No 05/20/2022 6:45 PM DIRECTOR OF BILLING Deepthi Patel RN Active * Do you [...] st Contact Info) Description 2025 2:30 PM DIRECTOR OF BILLING Office [facility] [address] Melina Mclean MD [address] [place] [address] documented as of this encounter Goals Goal Patient Goal Type Associated Problems Recent Progress Patient-Stated? Author Safety Patient/family will have appropriate support at home upon discharge Lifestyle No Suyapa Godwin RN documented as of this encounter Visit Diagnoses Not on filedocumented in this encounter Care Teams Tool Pusher Relationship Specialty Start Date End Date Jan Nicole MD [address] [place] [address] PCP - General INTERNAL MEDICINE 10/18/15 Sadie Ribera MD [address] [place] [phone] CLINICAL CARDIAC ELECTROPHYSIOLOGY 10/18/15 Triston Posey MD [address] [place] [phone] CARDIOVASCULAR DISEASE 10/18/15 Sangeeta Falcon, [facility] [address] [place] [phone] [place] Immersion Metalcleaner NURSE PRACTITIONER 08/03/16 07/06/23 Bri Ugarte MD [address] [place] [phone] Consulting Physician CARDIOVASCULAR DISEASE 05/11/2307/05 Melina Mclean MD [address] [place] [address] Consulting Physician CARDIOVASCULAR DISEASE 07/07/23 Millie Vilchis NP [address] [place] [address] [address] [place], [place] [address] Nurse Practitioner Nurse Practitioner Acute Care 05/15/24 documented as of this encounter
--- OUTSIDE RECORDS SUMMARY | 2024-10-21 21:46 | XMS_ITS | Encounter Summary ---
Author Organization [facility] Address [address] [place] [address] Care Team Providers Care Director Of Spa And Guest Experience Name Role Phone Jan Nicole MD Primary Care Provider [phone] Sadie Ribera MD Unavailable Triston Posey MD Unavailable [phone] [facility] Unavailable [phone] Bri Ugarte MD Unavailable Unavailabl e Melina Mclean MD Unavailable Millie Vilchis NP Unavailable [phone] Encounter Details Date Type Department Care Team (Late st Contact Info) Description 08/21/2020 Hospital Orders Only [facility] Anesthesia [address] [place] [address] Graciela Chapman Anesthesia Record Procedure Summary Procedure [...] Sex Assigned at Female 05/03/2024 7:48 AM MEDICAL BILLING ASSISTANT Legal Sex Female 1:16 AM CDT Gender [...] st Contact Info) Description 2025 2:30 PM MEDICAL BILLING ASSISTANT Office Visit [facility] [address] [address] Melina Mclean MD [address] [place] [address] documented as of this encounter Visit Diagnoses Not on filedocumented in this encounter Care Teams Director Of Spa And Guest Experience Relationship Specialty Start Date End Date Jan Nicole MD [address] [place] [address] PCP - General INTERNAL MEDICINE 10/18/15 Sadie Ribera MD [address] [place] [phone] CLINICAL CARDIAC ELECTROPHYSIOLOGY 10/18/15 Triston Posey MD [address] [place] [phone] CARDIOVASCULAR DISEASE 10/18/15 Sangeeta Falcon [facility] [address] [place] [phone] [place] Supervisor Plastic Sheets NURSE PRACTITIONER 08/03/16 07/06/23 Bri Ugarte MD [address] [place] [phone] Consulting Physician CARDIOVASCULAR DISEASE 05/11/2307/05 Melina Mclean MD [address] [place] [address] Consulting Physician CARDIOVASCULAR DISEASE 07/07/23 Millie Vilchis NP [address] [place] [address] [address] [place] [address] Nurse Practitioner Nurse Practitioner Acute Care 05/15/24 documented as of this encounter
--- OUTSIDE RECORDS SUMMARY | 2024-10-21 21:46 | XMS_ITS | Encounter Summary ---
Author Organization [facility] Address [address] [place] [address] Care Team Providers Care Cement Or Concrete Finishing Supervisor Name Role Phone Jan Nicole MD Primary Care Provider [phone] Sadie Ribera MD Unavailable Triston Posey MD Unavailable [phone] Sangeeta Falcon [facility] Unavailable [phone] Bri Ugarte MD Unavailable Unavailabl e Melina Mclean MD Unavailable Millie Vilchis NP Unavailable [phone] Encounter Details Date Type Department Care Team (Late st Contact Info) Description 09/10/2022 Prep for Procedure [facility] [address] [place] [address] Len Swanson MD [address] [place] [address] Social History Tobacco Use Types [...] How often do you attend chur or taoism services? 1 to 4 times per year 08/24/2022 Do you belong to any clubs o r organizations such as restoration groups, unions, fraternal or athletic groups, or [...] and heating? Not hard at all 08/24/2022 [facility] [place] of Occupat ional Health - Occupational Stress [...] place to sleep or slept in a penitentiary (including now)? No 08/24/2022 Comments Unknown Sex and Gender Information Value Date Recorded Sex Assigned at Female 05/03/2024 7:48 AM REMOTE SENSING SPECIALIST Legal Sex Female 1:16 AM CDT [...] st Contact Info) Description 2025 2:30 PM REMOTE SENSING SPECIALIST Office Visit [facility] [address] [address] Melina Mclean MD [address] [place] [address] documented as of this encounter Goals Goal Patient Goal Type Associated Problems Recent Progress Patient-Stated? Author Safety Patient/family will have appropriate support at home upon discharge Lifestyle No Suyapa Godwin RN documented as of this encounter Visit Diagnoses Not on filedocumented in this encounter Care Teams Cement Or Concrete Finishing Supervisor Relationship Specialty Start Date End Date Jan Nicole MD [address] [place] [address] PCP - General INTERNAL MEDICINE 10/18/15 Sadie Ribera MD [address] [place] [phone] CLINICAL CARDIAC ELECTROPHYSIOLOGY 10/18/15 Triston Posey MD [address] [place] [address] CARDIOVASCULAR DISEASE 10/18/15 Sangeeta Falcon AGACNP- [address] [place] [phone] [place] Powerhouse Operator NURSE PRACTITIONER 08/03/16 07/06/23 Bri Ugarte MD [address] [place] [phone] Consulting Physician CARDIOVASCULAR DISEASE 05/11/2307/05 Melina Mclean MD [address] [place] [address] Consulting Physician CARDIOVASCULAR DISEASE 07/07/23 Millie Vilchis NP [address] [place] [address] [address] [place] [address] Nurse Practitioner Nurse Practitioner Acute Care 05/15/24 documented as of this encounter
--- OUTSIDE RECORDS SUMMARY | 2024-10-21 21:47 | XMS_ITS | Clinical Summary ---
Author Organization [facility] Address [address] [place] [address] Care Team Providers Care Monument Setter Name Role Phone Jan Nicole MD Primary Care Provider [phone] Sadie Ribera MD Unavailable Triston Posey MD Unavailable [phone] Melina Mclean MD Unavailable Millie Vilchis NP Unavailable [phone] Allergies No known active allergies Medications vitamin [...] (coronary artery disease) 09/18/2022 Rapid atrial fibrillation ([facility]) 02/11/2022 Atrial fibrillation with RVR ([facility]) 0 05/20/2022 Atypical atrial flutter (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 1 to 4 times per year 08/24/2022 Do you belong to any clubs o r organizations such as anabaptist groups, unions, fraternal or athletic groups, or [...] and heating? Not hard at all 09/21/2022 [facility] [place] of Occupat ional Health - Occupational Stress [...] place to sleep or slept in a snf (including now)? No 09/21/2022 Comments No Sex and Gender Information Value Date Recorded Sex Assigned at Female 05/03/2024 7:48 AM RAISED PRINTER Legal Sex Female 1:16 AM CDT Gender [...] st Contact Info) Description 2025 2:30 PM RAISED PRINTER Office Visit [facility] [phone] Melina Mclean MD [address] [place] [address] Health Maintenance Due Date Last [...] Godwin RN Medical Devices Implanted Type Area Road Cutter Device Identifier Shelf Expiration Date Model / Serial / Lot Valve Mitral C-E 25mm - [id number] Implanted:Qty: 1 on 09/18/2022 by Len Swanson MD at [facility] Valve Implant [employer] [id number] 06/17/2024 [id number] / [id number] / Description:Inventory notifi ed--Danica Becure 45 Implanted:Qty: 1 on 09/18/2022 by Len Swanson MD at [facility] [id number] 05/13/2025 / / [id number] [employer] Simplicity Iol Implanted:Qty: 1 on 06/28/2024 by Concepción Horan MD at [facility] Right: Eye [id number] 01/25/2027 [id number] / [id number] / [id number] [employer] Simplicity Iol Implanted:Qty: 1 on 07/26/2024 by Concepción Horan MD at [facility] Left: Eye [id number] 09/27/2026 / [id number] / [id number] Procedures Procedure Name Priority Date/Time Associated Diagnosis Comments REMV CATARACT EXTRACAP,INSERT LENS 07/26/2024 11:54 AM CDT h25.9 COLONOSCOPY Routine 06/03/2023 7:33 AM RAISED PRINTER from Last 3 Months or Most Recently Relevant to Health Maintenance Results * Colonoscopy (06/03/2023 7:33 AM RAISED PRINTER) us Pedrito Mendenhall MD GI PROCEDURE ORDERABLES [...] 3:41 PM 08/24/2020 2:12 PM Care Teams Monument Setter Relationship Specialty Start Date End Date Jan Nicole MD [address] [place] [address] PCP - General INTERNAL MEDICINE 10/18/15 Sadie Ribera MD [address] [place] [address] CLINICAL CARDIAC ELECTROPHYSIOLOGY 10/18/15 Triston Posey MD [address] [place] [phone] CARDIOVASCULAR DISEASE 10/18/15 Melina Mclean MD [address] [place] [address] Consulting Physician CARDIOVASCULAR DISEASE 07/07/23 Millie Vilchis NP [address] [place] [address] [address] [place] [address] Nurse Practitioner Nurse Practitioner Acute Care 05/15/24
--- OUTSIDE RECORDS SUMMARY | 2024-10-21 21:47 | XMS_ITS ---
Author Organization Unknown Address [address] [place] [phone] Phone Care Team Providers Care Mortgage Processing Manager Name Role Phone SHIRLEY OLVERA Attending Unavailable [...] Plan of Treatment US Echo With Color (62563) 02/21/2024 US Echo With Color (32381) 02/22/2025 Encounters Encounter Diagnosis Start Date Code Code Sys tem Mixed hyperlipidemia 02/21/2024 SNOMED- CT Personal Care Team Section Performer Name Performer Role Active Date Inactive Da HOLA Rodriguez PCP - Primary care physician 2024-01-06 Imaging Narrative Notes [facility] 02/25/2024 12:[address] [address] RADIOLOGY REPORT Patient Number: [id number] Patient Name: VANESSA RG Type: O/P MR Number: [id number] : 1950 Age: 73 Sex: F Room #: Admit Date: 02/21/24 Discharge Date 02/21/24 Ordering Physician: SHIRLEY OLVERA Family Physician: DEANDRA MAN Second Physician: X-Ray Number : [id number] US ECHO W/ COLOR [id number] COMPLETE:02/21/24 09:45 JDF [id number] (REASON-ECHO COMPLTE: MITRO VALVE PROSTHESIS See Scanned Image Attachment for Report Dictated By: Maikel Initials: BG Ko Date: 02/25/24 12:02 <<REPDIST>>
[2024-10-21 22:22] VITALS: BP 102/68; PULSE 95; RESP 18; TEMP 37.4; O2SAT 97
== END 2024-10-21 22:22 | disposition home or self-care (01) ==
PROVIDERS: Emergency Provider Emergency Medicine; PCP Internal Medicine
DX: G62.9 Polyneuropathy, unspecified (principal); I25.10 Atherosclerotic heart disease of native coronary artery without angina pectoris; F17.210 Nicotine dependence, cigarettes, uncomplicated; I48.91 Unspecified atrial fibrillation
CPT/HCPCS: 96372; 99283; J1010

== ENCOUNTER 2024-10-23 15:27 | Outpatient (CLI) | payer MEDICARE, SELFPAY ==
--- OUTSIDE RECORDS SUMMARY | 2024-10-23 15:33 | XMS_ITS | Encounter Summary ---
Author Organization [facility] Address [address] [place] [address] Care Team Providers Care Dumbwaiter Operator Name Role Phone Jan Nicole MD Primary Care Provider [phone] Sadie Ribera MD Unavailable Triston Posey MD Unavailable [phone] Sangeeta Falcon [facility] Unavailable [phone] Bri Ugarte MD Unavailable Unavailabl e Melina Mclean MD Unavailable Millie Vilchis NP Unavailable [phone] Encounter Details Date Type Department Care Team (Late st Contact Info) Description 09/10/2022 Prep for Procedure [facility] Surgical [address] [place] [address] Len Swanson MD [address] [place] [address] Social History Tobacco Use Types [...] How often do you attend chur or jain services? 1 to 4 times per year 08/24/2022 Do you belong to any clubs o r organizations such as jain groups, unions, fraternal or athletic groups, or [...] and heating? Not hard at all 08/24/2022 [facility] [place] of Occupat ional Health - Occupational Stress [...] Sex Assigned at Female 05/03/2024 7:48 AM ROLL TENSION TESTER Legal Sex Female 1:16 AM CDT Gender [...] st Contact Info) Description 2025 2:30 PM ROLL TENSION TESTER Office Visit [facility] [address] [address] Melina Mclean MD [address] [place] [address] documented as of this encounter Goals Goal Patient Goal Type Associated Problems Recent Progress Patient-Stated? Author Safety Patient/family will have appropriate support at home upon discharge Lifestyle No Suyapa Godwin RN documented as of this encounter Visit Diagnoses Not on filedocumented in this encounter Care Teams Dumbwaiter Operator Relationship Specialty Start Date End Date Jan Nicole MD [address] [place] [address] PCP - General INTERNAL MEDICINE 10/18/15 Sadie Ribera MD [address] [place] [phone] CLINICAL CARDIAC ELECTROPHYSIOLOGY 10/18/15 Triston oPsey MD [address] [place] [address] CARDIOVASCULAR DISEASE 10/18/15 Sangeeta Falcon AGACNP- [address] [place] [phone] [place] Invoice Classification Clerk NURSE PRACTITIONER 08/03/16 07/06/23 Bri Ugarte MD [address] [place] [phone] Consulting Physician CARDIOVASCULAR DISEASE 05/11/2307/05 Melina Mclean MD [address] [place] [address] Consulting Physician CARDIOVASCULAR DISEASE 07/07/23 Millie Vilchis NP [address] [place] [address] [address] [place] [address] Nurse Practitioner Nurse Practitioner Acute Care 05/15/24 documented as of this encounter
--- OUTSIDE RECORDS SUMMARY | 2024-10-23 15:33 | XMS_ITS | Encounter Summary ---
Author Organization [facility] Address [facility] [place] [address] Care Team Providers Care Carbon Accountant Name Role Phone Jan Nicole MD Primary Care Provider [phone] Sadie Ribera MD Unavailable Triston Posey MD Unavailable [phone] Sangeeta Falcon [facility] Unavailable [phone] Bri Ugarte MD Unavailable Unavailabl e Melina Mclean MD Unavailable Millie Vilchis NP Unavailable [phone] Encounter Details Date Type Department Care Team (Late Contact Info) Description 06/26/2017 Abstract [facility] [address] [place] [address] , Generic Conversion, Social History Tobacco Use Types Packs/Day Years Used Date Smoking Tobacco: Former Cigarettes 1 0 2005 Smokeless Tobacco: Never Alcohol Use Standard Drinks/Week Comments Yes 0 (1 standard drink = 0.6 oz pur e alcohol) Comments Unknown Sex and Gender Information Value Date Recorded Sex Assigned at Female 05/03/2024 7:48 AM MILIEU TECHNICIAN Legal Sex Female 1:16 AM CDT [...] st Contact Info) Description 2025 2:30 PM MILIEU TECHNICIAN Office Visit [facility] [address] [place] [phone] Melina Mclean MD [address] [place] [address] documented as of this encounter Visit Diagnoses Not on filedocumented in this encounter Additional Health Concerns Infection Onset Date Last Indicated Resolved Time COVID-19 Rule Out 08/20/2020 08/20/2020 08/20/2020 7:31 PM CDT documented as of this encounter Care Teams Carbon Accountant Relationship Specialty Start Date End Date Jan Nicole MD [address] [place] [phone] PCP - General INTERNAL MEDICINE 10/18/15 Sadie Ribera MD [address] [place] [phone] CLINICAL CARDIAC ELECTROPHYSIOLOGY 10/18/15 Triston Posey MD [address] [place] [phone] CARDIOVASCULAR DISEASE 10/18/15 Sangeeta Falcon [facility] [address] [place] [phone] [place] Dock Manager NURSE PRACTITIONER 08/03/16 07/06/23 Bri Ugarte MD [address] [place] [phone] Consulting Physician CARDIOVASCULAR DISEASE 05/11/2307/05 Melina Mclean MD [address] [place] [address] Consulting Physician CARDIOVASCULAR DISEASE 07/07/23 Millie Vilchis NP [address] [facility]. [address] [place] [address] Nurse Practitioner Nurse Practitioner Acute Care 05/15/24 documented as of this encounter
--- OUTSIDE RECORDS SUMMARY | 2024-10-23 15:33 | XMS_ITS ---
Author Organization Unknown Address [address] [place] [phone] Phone Care Team Providers Care Electric Clock Mechanic Name Role Phone SHIRLEY OLVERA Attending Unavailable [...] Plan of Treatment US Echo With Color (70689) 02/21/2024 US Echo With Color (50603) 02/22/2025 Encounters Encounter Diagnosis Start Date Code Code Sys tem Right bundle branch block 01/06/2024 [id number] SN OMED-CT Personal Care Team Section Performer Name Performer Role Active Date Inactive HOLA Cullen PCP - Primary care physician 2024-01-06
--- OUTSIDE RECORDS SUMMARY | 2024-10-23 15:33 | XMS_ITS | Encounter Summary ---
Author Organization [facility] Address [address] [place] [address] Care Team Providers Care Sinter Feeder Name Role Phone Jan Nicole MD Primary Care Provider [phone] Sadie Ribera MD Unavailable Triston Posey MD Unavailable [phone] Sangeeta Falcon [facility] Unavailable [phone] Bri Ugarte MD Unavailable Unavailabl e Melina Mclean MD Unavailable Millie Vilchis NP Unavailable [phone] Encounter Details Date Type Department Care Team (Late st Contact Info) Description 08/31/2022 Hospital Follow-up Call [facility] Cardiovascular Care Unit [address] [place] [address] Ana Wright, RN Social History [...] often do you attend chur ch or confucianist services? 1 to 4 times per year 08/24/2022 Do you belong to any clubs o r organizations such as christianity groups, unions, fraternal or athletic groups, or [...] and heating? Not hard at all 08/24/2022 [facility] [place] of Occupat ional Health - Occupational Stress [...] in a skilled nursing (including now)? No 08/24/2022 Comments Unknown Sex and Gender Information Value Date Recorded Sex Assigned at Female 05/03/2024 7:48 AM KINDER TEACHER Legal Sex Female 1:16 AM CDT Gender [...] st Contact Info) Description 2025 2:30 PM KINDER TEACHER Office Visit [facility] [address] [phone] Melina Mclean MD [address] [place] [address] documented as of this encounter Goals Goal Patient Goal Type Associated Problems Recent Progress Patient-Stated? Author Safety Patient/family will have appropriate support at home upon discharge Lifestyle No Suyapa Godwin RN documented as of this encounter Visit Diagnoses Not on filedocumented in this encounter Care Teams Sinter Feeder Relationship Specialty Start Date End Date Jan Nicole MD [address] [place] [address] PCP - General INTERNAL MEDICINE 10/18/15 Sadie Ribera MD [address] [place] [phone] CLINICAL CARDIAC ELECTROPHYSIOLOGY 10/18/15 Triston Posey MD [address] [place] [phone] CARDIOVASCULAR DISEASE 10/18/15 S[facility]eta Falcon [facility] [address] [place] [phone] [place] Cellar Packer NURSE PRACTITIONER 08/03/16 07/06/23 Bri Ugarte MD [address] [place] [address] Consulting Physician CARDIOVASCULAR DISEASE 05/11/2307/05 Melina Mclean MD [address] [place], [place] [address] Consulting Physician CARDIOVASCULAR DISEASE 07/07/23 Milile Vilchis NP [address] [facility] [address] [place], [place] [address] Nurse Practitioner Nurse Practitioner Acute Care 05/15/24 documented as of this encounter
--- OUTSIDE RECORDS SUMMARY | 2024-10-23 15:33 | XMS_ITS | Encounter Summary ---
Author Organization [facility] Address [address] [place] [address] Care Team Providers Care Parent Aide Name Role Phone Jan Nicole MD Primary Care Provider [phone] Sadie Ribera MD Unavailable Triston Posey MD Unavailable [phone] [facility]eta Falcon [facility] Unavailable [phone] Bri Ugarte MD Unavailable Unavailabl e Melina Mclean MD Unavailable Millie Vilchis NP Unavailable [phone] Encounter Details Date Type Department Care Team (Late st Contact Info) Description 08/21/2020 Hospital Orders Only [facility] Anesthesia [address] [place] [address] Graciela Chapman Anesthesia Record Procedure Summary Procedure [...] Sex Assigned at Female 05/03/2024 7:48 AM WHEAT GROWER Legal Sex Female 1:16 AM CDT Gender [...] st Contact Info) Description 2025 2:30 PM WHEAT GROWER Office Visit [facility] [address] [address] Melina Mclean MD [address] [place] [address] documented as of this encounter Visit Diagnoses Not on filedocumented in this encounter Care Teams Parent Aide Relationship Specialty Start Date End Date Jan Nicole MD [address] [place] [address] PCP - General INTERNAL MEDICINE 10/18/15 Sadie Ribera MD [address] [place] [phone] CLINICAL CARDIAC ELECTROPHYSIOLOGY 10/18/15 Triston Posey MD [address] [place] [phone] CARDIOVASCULAR DISEASE 10/18/15 Sangeeta Falcon [facility] [address] [place] [phone] [place] Wire Roller NURSE PRACTITIONER 08/03/16 07/06/23 Bri Ugarte MD [address] [place] [phone] Consulting Physician CARDIOVASCULAR DISEASE 05/11/2307/05 Melina Mclean MD [address] [place] [address] Consulting Physician CARDIOVASCULAR DISEASE 07/07/23 Millie Vilchis NP [address] [place] [address] [address] [place] [address] Nurse Practitioner Nurse Practitioner Acute Care 05/15/24 documented as of this encounter
--- OUTSIDE RECORDS SUMMARY | 2024-10-23 15:33 | XMS_ITS | Encounter Summary ---
Author Organization [facility] Address Critical access hospital[address] [place] [address] Care Team Providers Care Behavioral Health Counselor Name Role Phone Jan Nicole MD Primary Care Provider [phone] Sadie Ribera MD Unavailable Triston Posey MD Unavailable [phone] Sangeeta Falcon [facility] Unavailable [phone] Bri Ugarte MD Unavailable Unavailabl e Melina Mclean MD Unavailable Millie Vilchis NP Unavailable [phone] Encounter Details Date Type Department Care Team (Late st Contact Info) Description 04/29/2016 Abstract [facility] [address] [place] [address] Sadie Ribera MD [address] [place] [address] Social History Tobacco Use Types Packs/Day Years Used Date Smoking Tobacco: Former Cigarettes Q uit: 2006 Smokeless Tobacco: Never Alcohol Use Standard Drinks/Week Comments No 0 (1 standard drink = 0.6 oz pur e alcohol) Comments Unknown Sex and Gender Information Value Date Recorded Sex Assigned at Female 05/03/2024 7:48 AM CDL INSTRUCTOR Legal Sex Female 1:16 AM CDT Gender Identity Not on file Sexual Orientation Not on file Occupation Industry Job Start Date Job End Date Doesnt work Not on file Not on file Not on file documented as of this encounter Plan of Treatment Upcoming Encounters Date Type Department Care Team (Late st Contact Info) Description 2025 2:30 PM CDL INSTRUCTOR Office Visit [facility] [address] [place] [phone] Melina Mclean MD [address] [place] [address] documented as of this encounter Procedures Procedure [...] documented as of this encounter Care Teams Behavioral Health Counselor Relationship Specialty Start Date End Date Jan Nicole MD [address] [place] [address] PCP - General INTERNAL MEDICINE 10/18/15 Sadie Ribera MD [address] [place] [address] CLINICAL CARDIAC ELECTROPHYSIOLOGY 10/18/15 Triston Posey MD [address] [place] [phone] CARDIOVASCULAR DISEASE 10/18/15 Sangeeta Falcon AGACNP- [address] [place] [phone] [place] Apprentice Painter Neckties NURSE PRACTITIONER 08/03/16 07/06/23 Bri Ugarte MD [address] [place] [phone] Consulting Physician CARDIOVASCULAR DISEASE 05/11/2307/05 Melina Mclean MD [address] [place] [address] Consulting Physician CARDIOVASCULAR DISEASE 07/07/23 Millie Vilchis, RONALDO [address] [place] [address] [address] [place] [address] Nurse Practitioner Nurse Practitioner Acute Care 05/15/24 documented as of this encounter
--- OUTSIDE RECORDS SUMMARY | 2024-10-23 15:33 | XMS_ITS | Encounter Summary ---
Author Organization [facility] Address [facility] [place] [address] Care Team Providers Care Vacuum Pan Tender Name Role Phone Jan Nicole MD Primary Care Provider [phone] Sadie Ribera MD Unavailable Triston Posey MD Unavailable [phone] Sangeeta Falcon [facility] Unavailable [phone] Bri Ugarte MD Unavailable Unavailabl e Melina Mclean MD Unavailable Millie Vilchis NP Unavailable [phone] Encounter Details Date Type Department Care Team (Late st Contact Info) Description 04/28/2016 Abstract [facility] [address] [place] [address] Sadie Ribera MD [address] [place] [address] Social History Tobacco Use Types Packs/Day Years Used Date Smoking Tobacco: Former Cigarettes Q uit: 2006 Smokeless Tobacco: Never Alcohol Use Standard Drinks/Week Comments No 0 (1 standard drink = 0.6 oz pur e alcohol) Comments Unknown Sex and Gender Information Value Date Recorded Sex Assigned at Female 05/03/2024 7:48 AM STOCK SHIPPER Legal Sex Female 1:16 AM CDT Gender Identity Not on file Sexual Orientation Not on file Occupation Industry Job Start Date Job End Date Doesnt work Not on file Not on file Not on file documented as of this encounter Plan of Treatment Upcoming Encounters Date Type Department Care Team (Late st Contact Info) Description 2025 2:30 PM STOCK SHIPPER [facility] [address] [place] [phone] Melina Mclean MD [address] [place] [address] documented as of this encounter Procedures Procedure [...] documented as of this encounter Care Teams Vacuum Pan Tender Relationship Specialty Start Date End Date Jan Nicole MD [address] [place] [address] PCP - General INTERNAL MEDICINE 10/18/15 Sadie Ribera MD [address] [place] [address] CLINICAL CARDIAC ELECTROPHYSIOLOGY 10/18/15 Triston Posey MD [address] [place] [address] CARDIOVASCULAR DISEASE 10/18/15 Sangeeta Falcon AGACNP-BC [address] [place] [phone] [facility] Support Consultant NURSE PRACTITIONER 08/03/16 07/06/23 Bri Ugarte MD [address] [place] [address] Consulting Physician CARDIOVASCULAR DISEASE 05/11/2307/05 Melina Mclean MD [address] [place] [address] Consulting Physician CARDIOVASCULAR DISEASE 07/07/23 Millie Vilchis NP 619 [facility] [address] [place], [place] [address] Nurse Practitioner Nurse Practitioner Acute Care 05/15/24 documented as of this encounter
--- OUTSIDE RECORDS SUMMARY | 2024-10-23 15:33 | XMS_ITS | Encounter Summary ---
Author Organization [facility] Address [address] [place] [address] Care Team Providers Care Patient Information Coordinator Name Role Phone Jan Nicole MD Primary Care Provider [phone] Sadie Ribera MD Unavailable Triston Posey MD Unavailable [phone] Sangeeta Falcon [facility] Unavailable [phone] Bri Ugarte MD Unavailable Unavailabl e Melina Mclean MD Unavailable Millie Vilchis NP Unavailable [phone] Encounter Details Date Type Department Care Team (Late st Contact Info) Description 09/28/2022 Hospital Follow-up Call [facility] Cardiovascular Care Unit [address] [place] [address] Ana Wright, RN Social History [...] often do you attend chur ch or catholic services? 1 to 4 times per year [...] and heating? Not hard at all 09/21/2022 [facility] [place] of Occupat ional Health - Occupational Stress [...] place to sleep or slept in a usp (including now)? No 09/21/2022 Comments Unknown Sex and Gender Information Value Date Recorded Sex Assigned at Female 05/03/2024 7:48 AM OB GYN PHYSICIAN ASSISTANT Legal Sex Female 1:16 AM CDT [...] st Contact Info) Description 2025 2:30 PM OB GYN PHYSICIAN ASSISTANT Office Visit [facility] [address] [address] Melina Mclean MD [address] [place] [address] documented as of this encounter Goals Goal Patient Goal Type Associated Problems Recent Progress Patient-Stated? Author Safety Patient/family will have appropriate support at home upon discharge Lifestyle Suyapa Kurtz RN Safety Patient/family will have appropriate support at home upon discharge Lifestyle No Suyapa Godwin RN documented as of this encounter Visit Diagnoses Not on filedocumented in this encounter Care Teams Patient Information Coordinator Relationship Specialty Start Date End Date Jan Nicole MD [address] [place] [address] PCP - General INTERNAL MEDICINE 10/18/15 Sadie Ribera MD [address] [place] [phone] CLINICAL CARDIAC ELECTROPHYSIOLOGY 10/18/15 Triston Posey MD [address] [place] [phone] CARDIOVASCULAR DISEASE 10/18/15 Sangeeta Falcon AGACNP- [address] [place] [phone] [place] Grass[employer] Organizer NURSE PRACTITIONER 08/03/16 07/06/23 Bri Ugarte MD [address] [place] [phone] Consulting Physician CARDIOVASCULAR DISEASE 05/11/2307/05 Melina Mclean MD [address] [place] [address] Consulting Physician CARDIOVASCULAR DISEASE 07/07/23 Millie Vilchis NP [address] [place] [address] [address] [place] [address] Nurse Practitioner Nurse Practitioner Acute Care 05/15/24 documented as of this encounter
--- OUTSIDE RECORDS SUMMARY | 2024-10-23 15:33 | XMS_ITS | Encounter Summary ---
Author Organization [facility] Address [address] [place] [address] Care Team Providers Care Inspector Hairspring Truing Name Role Phone Jan Nicole MD Primary Care Provider [phone] Sadie Ribera MD Unavailable Triston Posey MD Unavailable [phone] Sangeeta Falcon [facility] Unavailable [phone] Bri Ugarte MD Unavailable Unavailabl e Melina Mclean MD Unavailable Millie Vilchis NP Unavailable [phone] Encounter Details Date Type Department Care Team (Late st Contact Info) Description 06/01/2022 Hospital Follow-up Call [facility] Cardiovascular Care Unit [address] [place] [address] Ana Wright, RN Social History [...] slept in a chcf (including now)? No 05/27/2022 Comments Unknown Sex and Gender Information Value Date Recorded Sex Assigned at Female 05/03/2024 7:48 AM ACCOUNT SUPERVISOR Legal Sex Female 1:16 AM CDT [...] Coronavirus/COVID-19? No / Unsure 05/27/2022 2:36 AM ACCOUNT SUPERVISOR documented as of this encounter Functional Status * RETIRED Are you deaf or do you have serious difficulty hearing Answer Date of Assessment Author Status No 05/20/2022 6:45 PM ACCOUNT SUPERVISOR Activ e * RETIRED Are you blind or do you have serious difficulty seeing, even when wearing glasses? Answer Date of Assessment Author Status No 05/20/2022 6:45 PM ACCOUNT SUPERVISOR Activ e * Do you have serious difficulty walking or climbing stairs? Answer Date of Assessment Author Status No 05/20/2022 6:45 PM ACCOUNT SUPERVISOR Deepthi Patel RN Active * Do you [...] st Contact Info) Description 2025 2:30 PM ACCOUNT SUPERVISOR Office Visit [facility] [address] Melina Mclean MD [address] [place] [address] documented as of this encounter Goals Goal Patient Goal Type Associated Problems Recent Progress Patient-Stated? Author Safety Patient/family will have appropriate support at home upon discharge Lifestyle No Suyapa Godwin RN documented as of this encounter Visit Diagnoses Not on filedocumented in this encounter Care Teams Inspector Hairspring Truing Relationship Specialty Start Date End Date Jan Nicole MD [address] [place] [address] PCP - General INTERNAL MEDICINE 10/18/15 Sadie Ribera MD [address] [place] [phone] CLINICAL CARDIAC ELECTROPHYSIOLOGY 10/18/15 Triston Posey MD [address] [place] [phone] CARDIOVASCULAR DISEASE 10/18/15 Sangeeta Falcon, [facility] [address] [place] [phone] [place] [employer] Engineer NURSE PRACTITIONER 08/03/16 07/06/23 Bri Ugarte MD [address] [place] [phone] Consulting Physician CARDIOVASCULAR DISEASE 05/11/2307/05 Melina Mclean MD [address] [place] [address] Consulting Physician CARDIOVASCULAR DISEASE 07/07/23 Millie Vilchis NP [address] [place] [address] [address] [place], [place] [address] Nurse Practitioner Nurse Practitioner Acute Care 05/15/24 documented as of this encounter
--- OUTSIDE RECORDS SUMMARY | 2024-10-23 15:34 | XMS_ITS | Clinical Summary ---
Author Organization [facility] Address [address] [place] [address] Care Team Providers Care Business Affairs Manager Name Role Phone Jan Nicole MD Primary Care Provider [phone] Sadie Ribera MD Unavailable Triston Posey MD Unavailable [phone] Melina Mclean MD Unavailable Millie Vilchis NP Unavailable [phone] Allergies No known active allergies Medications vitamin [...] (coronary artery disease) 09/18/2022 Rapid atrial fibrillation ([facility]) 02/11/2022 Atrial fibrillation with RVR ([facility]) 0 05/20/2022 Atypical atrial flutter ([facility]) 2018 buttermaker current use of antiarrhythmic drug Atrioventricular bloc first degree 07/31/2016 Right bundle branch block 04/24/2016 Persistent atrial fibrillation ([facility]) 10/09/2015 buttermaker current use of anticoagulant therapy 0 10/09/2015 Bifascicular block 10/09/2015 Encounters Date Type Department Care Team Description 07/26/2024 11:59 AM CDT Anesthesia Event [place] [facility] [address] [place] [address] Mehul Cope CRNA 07/26/2024 11:15 AM CDT - 07/26/2024 11:40 AM CDT Surgery [place] [facility] [address] [place] [address] Concepción Horan MD extraction cataract LEFT eye with lens implant 07/26/2024 10:58 AM CDT - 07/26/2024 12:48 PM CDT Hospital Encounter [place] [address] [place] [address] Concepción Horan MD Discharge Disposition: Home or [...] and heating? Not hard at all 09/21/2022 [facility] [place] of Occupat ional Health - Occupational Stress [...] place to sleep or slept in a correction (including now)? No 09/21/2022 Comments No Sex and Gender Information Value Date Recorded Sex Assigned at Female 05/03/2024 7:48 AM SALES AGENT PROTECTIVE SERVICE Legal Sex Female 1:16 AM CDT Gender [...] st Contact Info) Description 2025 2:30 PM SALES AGENT PROTECTIVE SERVICE Office Visit [facility] [phone] Melina Mclean MD [address] [place] [address] Health Maintenance Due Date Last [...] Godwin RN Medical Devices Implanted Type [employer] Teacher'S Aide Device Identifier Shelf Expiration Date Model / Serial / Lot Valve Mitral C-E 25mm - [id number] Implanted:Qty: 1 on 09/18/2022 by Len Swanson MD at [facility] Valve Implant [employer] [id number] 06/17/2024 [id number] / [id number] / Description:Inventory notifi ed--Danica Becure 45 Implanted:Qty: 1 on 09/18/2022 by Len Swanson MD at [facility] [id number] 05/13/2025 / / [id number] [employer] Simplicity Iol Implanted:Qty: 1 on 06/28/2024 by Concepción Horan MD at [facility] Right: Eye [id number] 01/25/2027 [id number] / [id number] / [id number] [employer] Simplicity Iol Implanted:Qty: 1 on 07/26/2024 by Concepción Horan MD at [facility] Left: Eye [id number] 09/27/2026 / [id number] / [id number] Procedures Procedure Name Priority Date/Time Associated Diagnosis Comments REMV CATARACT EXTRACAP,INSERT LENS 07/26/2024 11:54 AM CDT h25.9 COLONOSCOPY Routine 06/03/2023 7:33 AM SALES AGENT PROTECTIVE SERVICE from Last 3 Months or Most Recently Relevant to Health Maintenance Results * Colonoscopy (06/03/2023 7:33 AM SALES AGENT PROTECTIVE SERVICE) us Pedrito Mendenhall MD GI PROCEDURE ORDERABLES [...] 3:41 PM 08/24/2020 2:12 PM Care Teams Business Affairs Manager Relationship Specialty Start Date End Date Jan Nicole MD [address] [place] [address] PCP - General INTERNAL MEDICINE 10/18/15 Sadie Ribera MD [address] [place] [address] CLINICAL CARDIAC ELECTROPHYSIOLOGY 10/18/15 Triston Posey MD [address] [place] [phone] CARDIOVASCULAR DISEASE 10/18/15 Melina Mclean MD [address] [place] [address] Consulting Physician CARDIOVASCULAR DISEASE 07/07/23 Millie Vilchis NP [address] [place] [address] [address] [place] [address] Nurse Practitioner Nurse Practitioner Acute Care 05/15/24
--- OUTSIDE RECORDS SUMMARY | 2024-10-23 15:34 | XMS_ITS ---
Author Organization Unknown Address [address] [place] [phone] Phone Care Team Providers Care Line 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 Name Role Phone SHIRLEY OLVERA Attending Unavailable [...] Plan of Treatment US Echo With Color (13159) 02/21/2024 US Echo With Color (06108) 02/22/2025 Encounters Encounter Diagnosis Start Date Code Code Sys tem Mixed hyperlipidemia 02/21/2024 SNOMED- CT Personal Care Team Section Performer Name Performer Role Active Date Inactive Da HOLA Rodriguez PCP - Primary care physician 2024-01-06 Imaging Narrative Notes [facility] 02/25/2024 12:[address] [address] RADIOLOGY REPORT Patient Number: [id number] Patient Name: VANESSA RG Type: O/P MR Number: [id number] : 1950 Age: 73 Sex: F Room #: Admit Date: 02/21/24 Discharge Date 02/21/24 Ordering Physician: SHIRLEY OLVERA Family Physician: DEANDRA MAN Second Physician: X-Ray Number : [id number] US ECHO W/ COLOR 92381 COMPLETE:02/21/24 09:45 JDF [id number] (REASON-ECHO COMPLTE: MITRO VALVE PROSTHESIS See Scanned Image Attachment for Report Dictated By: Maikel Initials: BG Ko Date: 02/25/24 12:02 <<REPDIST>>
--- NOTE | 2024-10-23 15:43 | ECG_ITS ---
Test Date: 2024-10-23 15:50:15 Measurements Intervals Perkins Rate: 129 P: 0 VA: 0 QRS: -78 QRSD: 138 T: 45 QT: 347 QTc: 508 Interpretive Statements ATRIAL FIBRILLATION WITH RAPID VENTRICULAR RESPONSE RIGHT BUNDLE BRANCH BLOCK [120+ ms QRS DURATION, UPRIGHT V1, 40+ ms S IN I/aVL/V4/V5/V6] LEFT ANTERIOR FASCICULAR BLOCK [QRS AXIS <= -45, QR IN I, RS IN II] ABNORMAL ELECTROCARDIOGRAM No previous ECG available for comparison Electronically Signed On 10-24-2024 10:23:10 CDT by Maxime Thorne M.D.
[2024-10-23 15:52] LABS: Hematocrit 47.7 % (35.0-42.0); Hemoglobin 15.4 g/dL (11.7-13.8); Mean Corpuscular HGB Conc 32.3 g/dL (32-36); Mean Corpuscular Hemoglobin 32.2 pg (27.0-31.0); Mean Corpuscular Volume 99.6 fL (78.0-102.0); Platelet Count Result 271 K/mm3 (150-420); Red Blood Count 4.79 M/mm3 (4.20-5.40); White Blood Count 10.3 K/mm3 (4.8-10.8)
[2024-10-23 16:08] LABS: Alanine Aminotransferase 21 U/L (6-35); Albumin Level 4.3 g/dL (3.5-5.1); Alkaline Phosphatase 134 U/L (38-126); Anion Gap 4 mmol/L (4-12); Aspartate Amino Transferase 36 U/L (14-36); Bilirubin,Total 1.5 mg/dL (0.2-1.3); Blood Urea Nitrogen 14 mg/dL (7-17); CRP 1.6 mg/dL (<1.0); Calcium 9.3 mg/dL (8.4-10.2); Carbon Dioxide 28 mmol/L (22-30); Chloride 105 mmol/L (98-107); Estimated Glomerular Filt Rate 53; Glucose 102 mg/dL (65-110); Osmolality Calculated 284 mOsm/kg (285-295); Potassium 4.2 mmol/L (3.4-5.0); Sodium 137 mmol/L (137-145); Total Protein 7.4 g/dL (6.3-8.2)
[2024-10-23 16:14] LABS: NT Pro B Type Natriuretic Pept 2910 pg/mL (19.9-100)
== END 2024-10-23 15:28 | disposition home or self-care (01) ==
LOC: CHSLAB 15:29
PROVIDERS: PCP Internal Medicine; Visit Provider Internal Medicine
DX: I48.91 Unspecified atrial fibrillation (principal); I73.9 Peripheral vascular disease, unspecified; I45.2 Bifascicular block; R94.31 Abnormal electrocardiogram [ECG] [EKG]
CPT/HCPCS: 36415; 80053; 83880; 85027; 86140; 93005

== ENCOUNTER 2024-10-26 07:56 | Outpatient (CLI) | payer MEDICARE, SELFPAY ==
--- NOTE | ~2024-10-26 | US_ITS ---
US arterial ankle brachial ind INDICATION: Peripheral arterial disease TECHNIQUE: Segmental pressures and plethysmographic and Doppler waveforms of the brachial and lower e xtremity arteries were obtained. COMPARISON: None. FINDINGS: Right and left brachial artery pressures of 107 mm Hg and 117 mm Hg, respectively, are concordant (no rmal difference <= 30 mmHg). There is monophasic flow in the right dorsalis pedis and posterior tibia l artery. There is biphasic flow in the left dorsalis pedis artery with monophasic flow in the left p osterior tibial artery. The right ankle-brachial index (ZENA) is 0.52 (normal >= 0.9-1.0). The right great toe-brachial index (TBI) is 0.26 (normal >= 0.60). The left ZENA is 1.15. The left TBI is 0.61. IMPRESSION: 1. Decreased right ankle and toe brachial indices consistent with moderate-severe peripheral arterial disease. 2: Normal left ankle and toe brachial indices. Reviewed, dictated and finalized at location A. IMPRESSION: 1. Decreased right ankle and toe brachial indices consistent with moderate-eleroy re peripheral arterial disease. 2: Normal left ankle and toe brachial indices.
--- OUTSIDE RECORDS SUMMARY | 2024-10-26 07:59 | XMS_ITS | Encounter Summary ---
Author Organization [facility] Address [address] [place] [address] Care Team Providers Care Civil Rights Representative Name Role Phone Jan Nicole MD Primary Care Provider [phone] Sadie Ribera MD Unavailable Triston Posey MD Unavailable [phone] Sangeeta Falcon [facility] Unavailable [phone] Bri Ugarte MD Unavailable Unavailabl e Melina Mclean MD Unavailable Millie Vilchis NP Unavailable [phone] Encounter Details Date Type Department Care Team (Late st Contact Info) Description 09/28/2022 Hospital Follow-up Call [facility] Cardi[facility] Care Unit [address] [place] [address] Ana Wright, RN Social History [...] often do you attend chur ch or synagogue services? 1 to 4 times per year [...] and heating? Not hard at all 09/21/2022 [facility] [place] of Occupat ional Health - Occupational Stress [...] slept in a alf (including now)? No 09/21/2022 Comments Unknown Sex and Gender Information Value Date Recorded Sex Assigned at Female 05/03/2024 7:48 AM REAL ESTATE SALES ASSOCIATE Legal Sex Female 1:16 AM CDT Gender [...] st Contact Info) Description 2025 2:30 PM REAL ESTATE SALES ASSOCIATE Office Visit [facility] [address] [address] Melina Mclean MD [address] [place] [address] documented as of this encounter Goals Goal Patient Goal Type Associated Problems Recent Progress Patient-Stated? Author Safety Patient/family will have appropriate support at home upon discharge Lifestyle Suyapa Kurtz RN Safety Patient/family will have appropriate support at home upon discharge Lifestyle No Suyapa Godwin RN documented as of this encounter Visit Diagnoses Not on filedocumented in this encounter Care Teams Civil Rights Representative Relationship Specialty Start Date End Date Jan Nicole MD [address] [place] [address] PCP - General INTERNAL MEDICINE 10/18/15 Sadie Ribera MD [address] [place] [phone] CLINICAL CARDIAC ELECTROPHYSIOLOGY 10/18/15 Triston Posey MD [address] [place] [phone] CARDIOVASCULAR DISEASE 10/18/15 Sangeeta Falcon AGACNP- [address] [place] [address] [phone] [place] Hand Former NURSE PRACTITIONER 08/03/16 07/06/23 Bri Ugarte MD [address] [place] [phone] Consulting Physician CARDIOVASCULAR DISEASE 05/11/2307/05 Melina Mclean MD [address] [place] [address] Consulting Physician CARDIOVASCULAR DISEASE 07/07/23 Millie Vilchis NP [address] [place] [address] [address] [place] [address] Nurse Practitioner Nurse Practitioner Acute Care 05/15/24 documented as of this encounter
--- OUTSIDE RECORDS SUMMARY | 2024-10-26 07:59 | XMS_ITS ---
Author Organization Unknown Address [address] [place] [phone] Phone Care Team Providers Care Administrative Appeals Tribunal Member Name Role Phone SHIRLEY OLVERA Attending Unavailable [...] Plan of Treatment US Echo With Color (61258) 02/21/2024 US Echo With Color (33417) 02/22/2025 Encounters Encounter Diagnosis Start Date Code Code Sys tem Right bundle branch block 01/06/2024 [id number] SN OMED-CT Personal Care Team Section Performer Name Performer Role Active Date Inactive HOLA Cullen PCP - Primary care physician 2024-01-06
--- OUTSIDE RECORDS SUMMARY | 2024-10-26 07:59 | XMS_ITS | Encounter Summary ---
Author Organization [facility] Address [facility] [place] [address] Care Team Providers Care Towel Sewer Name Role Phone Jan Nicole MD Primary Care Provider [phone] Sadie Ribera MD Unavailable Triston Posey MD Unavailable [phone] Sangeeta Falcon [facility] Unavailable [phone] Bri Ugarte MD Unavailable Unavailabl e Melina Mclean MD Unavailable Millie Vilchis NP Unavailable [phone] Encounter Details Date Type Department Care Team (Late Contact Info) Description 06/26/2017 Abstract [facility] CONVERSION [address] [place] [address] , Generic Conversion, Social History Tobacco Use Types Packs/Day Years Used Date Smoking Tobacco: Former Cigarettes 1 0 2005 Smokeless Tobacco: Never Alcohol Use Standard Drinks/Week Comments Yes 0 (1 standard drink = 0.6 oz pur e alcohol) Comments Unknown Sex and Gender Information Value Date Recorded Sex Assigned at Female 05/03/2024 7:48 AM GRAIN TRIMMER Legal Sex Female 1:16 AM CDT Gender [...] st Contact Info) Description 2025 2:30 PM GRAIN TRIMMER Office Visit [facility] [id number] [place] [phone] Melina Mclean MD [address] [place] [address] documented as of this encounter Visit Diagnoses Not on filedocumented in this encounter Additional Health Concerns Infection Onset Date Last Indicated Resolved Time COVID-19 Rule Out 08/20/2020 08/20/2020 08/20/2020 7:31 PM CDT documented as of this encounter Care Teams Towel Sewer Relationship Specialty Start Date End Date Jna Nicole MD [address] [place] [phone] PCP - General INTERNAL MEDICINE 10/18/15 Sadie Ribera MD [address] [place] [phone] CLINICAL CARDIAC ELECTROPHYSIOLOGY 10/18/15 Triston Posey MD [address] [place] [phone] CARDIOVASCULAR DISEASE 10/18/15 Sangeeta Falcon [facility] [address] [place] [phone] [place] Fitter/Welder NURSE PRACTITIONER 08/03/16 07/06/23 Bri Ugarte MD [address] [place] [phone] Consulting Physician CARDIOVASCULAR DISEASE 05/11/2307/05 Melina Mclean MD [address] [place] [address] Consulting Physician CARDIOVASCULAR DISEASE 07/07/23 Millie Vilchis NP [address] [facility]. [address] [place] [address] Nurse Practitioner Nurse Practitioner Acute Care 05/15/24 documented as of this encounter
--- OUTSIDE RECORDS SUMMARY | 2024-10-26 07:59 | XMS_ITS | Encounter Summary ---
Author Organization [facility] Address [address] [place] [address] Care Team Providers Care Field Identification Specialist Name Role Phone Jan Nicole MD Primary Care Provider [phone] Sadie Ribera MD Unavailable Triston Posey MD Unavailable [phone] Sangeeta Falcon [facility] Unavailable [phone] Bri Ugarte MD Unavailable Unavailabl e Melina Mclean MD Unavailable Millie Vilchis NP Unavailable [phone] Encounter Details Date Type Department Care Team (Late st Contact Info) Description 06/01/2022 Hospital Follow-up Call [facility] Cardiovascular Care Unit [address] [place] [address] Ana Wright, RN Social History [...] place to sleep or slept in a fci (including now)? No 05/27/2022 Comments Unknown Sex and Gender Information Value Date Recorded Sex Assigned at Female 05/03/2024 7:48 AM UNDERTAKER HELPER Legal Sex Female 1:16 AM CDT Gender [...] Coronavirus/COVID-19? No / Unsure 05/27/2022 2:36 AM UNDERTAKER HELPER documented as of this encounter Functional Status * RETIRED Are you deaf or do you have serious difficulty hearing Answer Date of Assessment Author Status No 05/20/2022 6:45 PM UNDERTAKER HELPER Activ e * RETIRED Are you blind or do you have serious difficulty seeing, even when wearing glasses? Answer Date of Assessment Author Status No 05/20/2022 6:45 PM UNDERTAKER HELPER Activ e * Do you have serious difficulty walking or climbing stairs? Answer Date of Assessment Author Status No 05/20/2022 6:45 PM UNDERTAKER HELPER Deepthi Patel RN Active * Do you [...] st Contact Info) Description 2025 2:30 PM UNDERTAKER HELPER Office Visit [facility] [address] Melina Mclean MD [address] [place] [address] documented as of this encounter Goals Goal Patient Goal Type Associated Problems Recent Progress Patient-Stated? Author Safety Patient/family will have appropriate support at home upon discharge Lifestyle No Suyapa Godwin RN documented as of this encounter Visit Diagnoses Not on filedocumented in this encounter Care Teams Field Identification Specialist Relationship Specialty Start Date End Date Jan Nicole MD [address] [place] [address] PCP - General INTERNAL MEDICINE 10/18/15 Sadie Ribera MD [address] [place] [phone] CLINICAL CARDIAC ELECTROPHYSIOLOGY 10/18/15 Triston Posey MD [address] [place] [phone] CARDIOVASCULAR DISEASE 10/18/15 Sangeeta Falcon, [facility] [address] [place] [address] [phone] [place] Therapeutic Recreation Leader NURSE PRACTITIONER 08/03/16 07/06/23 Bri Ugarte MD [address] [place] [phone] Consulting Physician CARDIOVASCULAR DISEASE 05/11/2307/05 Melina Mclean MD [address] [place] [address] Consulting Physician CARDIOVASCULAR DISEASE 07/07/23 Millie Vilchis NP [address] [place] [address] [address] [place], [place] [address] Nurse Practitioner Nurse Practitioner Acute Care 05/15/24 documented as of this encounter
--- OUTSIDE RECORDS SUMMARY | 2024-10-26 07:59 | XMS_ITS | Encounter Summary ---
Author Organization [facility] Address [address] [place] [address] Care Team Providers Care Sole Cutter Name Role Phone Jan Nicole MD Primary Care Provider [phone] Sadie Ribera MD Unavailable Triston Posey MD Unavailable [phone] Sangeeta Falcon [facility] Unavailable [phone] Bri Ugarte MD Unavailable Unavailabl e Melina Mlcean MD Unavailable Millie Vilchis NP Unavailable [phone] Encounter Details Date Type Department Care Team (Late st Contact Info) Description 08/31/2022 Hospital Follow-up Call [facility] Cardiovascular Care Unit [address] [place] [address] Ana Wright, RN Social History [...] often do you attend chur ch or nondenominational services? 1 to 4 times per year 08/24/2022 Do you belong to any clubs o r organizations such as methodist groups, unions, fraternal or athletic groups, or [...] and heating? Not hard at all 08/24/2022 [facility] [place] of Occupat ional Health - Occupational Stress [...] place to sleep or slept in a intermediate (including now)? No 08/24/2022 Comments Unknown Sex and Gender Information Value Date Recorded Sex Assigned at Female 05/03/2024 7:48 AM MONUMENT CARVER Legal Sex Female 1:16 AM CDT Gender [...] st Contact Info) Description 2025 2:30 PM MONUMENT CARVER Office Visit [facility] [address] [phone] Melina Mclean MD [address] [place] [address] documented as of this encounter Goals Goal Patient Goal Type Associated Problems Recent Progress Patient-Stated? Author Safety Patient/family will have appropriate support at home upon discharge Lifestyle No Suyapa Godwin RN documented as of this encounter Visit Diagnoses Not on filedocumented in this encounter Care Teams Sole Cutter Relationship Specialty Start Date End Date Jan Nicole MD [address] [place] [address] PCP - General INTERNAL MEDICINE 10/18/15 Sadie Ribera MD [address] [place] [phone] CLINICAL CARDIAC ELECTROPHYSIOLOGY 10/18/15 Triston Posey MD [address] [place] [phone] CARDIOVASCULAR DISEASE 10/18/15 [facility] Falcon [facility] [address] [place] [phone] [place] Engagement Manager NURSE PRACTITIONER 08/03/16 07/06/23 Bri Ugarte MD [address] [place] [address] Consulting Physician CARDIOVASCULAR DISEASE 05/11/2307/05 Melina Mclean MD [address] [place], [place] [address] Consulting Physician CARDIOVASCULAR DISEASE 07/07/23 Millie Vilchis NP [address] [facility] [address] [place], [place] [address] Nurse Practitioner Nurse Practitioner Acute Care 05/15/24 documented as of this encounter
--- OUTSIDE RECORDS SUMMARY | 2024-10-26 07:59 | XMS_ITS | Encounter Summary ---
Author Organization [facility] Address [facility] [place] [address] Care Team Providers Care Nurse Name Role Phone Jan Nicole MD Primary Care Provider [phone] Sadie Ribera MD Unavailable Triston Posey MD Unavailable [phone] Sangeeta Falcon [facility] Unavailable [phone] Bri Ugarte MD Unavailable Unavailabl e Melina Mclean MD Unavailable Millie Vilchis NP Unavailable [phone] Encounter Details Date Type Department Care Team (Late st Contact Info) Description 04/29/2016 Abstract [facility] [address] [place] [address] Sadie Ribera MD [address] [place] [address] Social History Tobacco Use Types Packs/Day Years Used Date Smoking Tobacco: Former Cigarettes Q uit: 2006 Smokeless Tobacco: Never Alcohol Use Standard Drinks/Week Comments No 0 (1 standard drink = 0.6 oz pur e alcohol) Comments Unknown Sex and Gender Information Value Date Recorded Sex Assigned at Female 05/03/2024 7:48 AM EKG/ECG TECHNICIAN Legal Sex Female 1:16 AM CDT Gender Identity Not on file Sexual Orientation Not on file Occupation Industry Job Start Date Job End Date Doesnt work Not on file Not on file Not on file documented as of this encounter Plan of Treatment Upcoming Encounters Date Type Department Care Team (Late st Contact Info) Description 2025 2:30 PM EKG/ECG TECHNICIAN Office Visit [facility] [address] [place] [phone] Melina Mclean MD [address] [place] [address] documented as of this encounter Procedures Procedure [...] documented as of this encounter Care Teams Nurse Relationship Specialty Start Date End Date Jan Nicole MD [address] [place] [address] PCP - General INTERNAL MEDICINE 10/18/15 Sadie Ribera MD [address] [place] [address] CLINICAL CARDIAC ELECTROPHYSIOLOGY 10/18/15 Triston Posey MD [address] [place] [phone] CARDIOVASCULAR DISEASE 10/18/15 Sangeeta Falcon AGACNP- [address] [place] [phone] [place] Cellulose Insulation Helper NURSE PRACTITIONER 08/03/16 07/06/23 Bri Ugarte MD [address] [place] [phone] Consulting Physician CARDIOVASCULAR DISEASE 05/11/2307/05 Melina Mclean MD [address] [place] [address] Consulting Physician CARDIOVASCULAR DISEASE 07/07/23 Millie Vilchis, RONALDO [address] [place] [address] [address] [place] [address] Nurse Practitioner Nurse Practitioner Acute Care 05/15/24 documented as of this encounter
--- OUTSIDE RECORDS SUMMARY | 2024-10-26 07:59 | XMS_ITS | Encounter Summary ---
Author Organization [facility] Address [facility] [place] [address] Care Team Providers Care Kennel Staff Member Name Role Phone Jan Nicole MD Primary Care Provider [phone] Sadie Ribera MD Unavailable Triston Posey MD Unavailable [phone] Sangeeta Falcon [facility] Unavailable [phone] Bri Ugarte MD Unavailable Unavailabl e Melina Mclean MD Unavailable Millie Vilchis NP Unavailable [phone] Encounter Details Date Type Department Care Team (Late st Contact Info) Description 04/28/2016 Abstract [facility] [address] [place] [address] Sadie Ribera MD [address] [place] [address] Social History Tobacco Use Types Packs/Day Years Used Date Smoking Tobacco: Former Cigarettes Q uit: 2006 Smokeless Tobacco: Never Alcohol Use Standard Drinks/Week Comments No 0 (1 standard drink = 0.6 oz pur e alcohol) Comments Unknown Sex and Gender Information Value Date Recorded Sex Assigned at Female 05/03/2024 7:48 AM INSURANCE PROFESSIONAL Legal Sex Female 1:16 AM CDT Gender Identity Not on file Sexual Orientation Not on file Occupation Industry Job Start Date Job End Date Doesnt work Not on file Not on file Not on file documented as of this encounter Plan of Treatment Upcoming Encounters Date Type Department Care Team (Late st Contact Info) Description 2025 2:30 PM INSURANCE PROFESSIONAL [facility] [place] [facility] [address] [place] [phone] Melina Mclean MD [address] [place] [address] documented as of this encounter Procedures Procedure [...] documented as of this encounter Care Teams Kennel Staff Member Relationship Specialty Start Date End Date Jan Nicole MD [address] [place] [address] PCP - General INTERNAL MEDICINE 10/18/15 Sadie Ribera MD [address] [place] [address] CLINICAL CARDIAC ELECTROPHYSIOLOGY 10/18/15 Triston Posey MD [address] [place] [address] CARDIOVASCULAR DISEASE 10/18/15 Sangeeta Falcon AGACNP-BC [address] [place] [phone] [place] [employer] Electrician Supervisor NURSE PRACTITIONER 08/03/16 07/06/23 Bri Ugarte MD [address] [place] [address] Consulting Physician CARDIOVASCULAR DISEASE 05/11/2307/05 Melina Mclean MD [address] [place] [address] Consulting Physician CARDIOVASCULAR DISEASE 07/07/23 Millie Vilchis NP [address] [facility] [address] [place], [place] [address] Nurse Practitioner Nurse Practitioner Acute Care 05/15/24 documented as of this encounter
--- OUTSIDE RECORDS SUMMARY | 2024-10-26 07:59 | XMS_ITS | Encounter Summary ---
Author Organization [facility] Address [address] [place] [address] Care Team Providers Care Biotechnologist Name Role Phone Jan Nicole MD Primary Care Provider [phone] Sadie Ribera MD Unavailable Triston Posey MD Unavailable [phone] Sangeeta Falcon [facility] Unavailable [phone] Bri Ugarte MD Unavailable Unavailabl e Melina Mclean MD Unavailable Millie Vilchis NP Unavailable [phone] Encounter Details Date Type Department Care Team (Late st Contact Info) Description 09/10/2022 Prep for Procedure [facility] Surgical [address] [place] [address] Len Swanson MD [address] [place] [address] Social History Tobacco Use Types [...] How often do you attend chur or taoist services? 1 to 4 times [...] and heating? Not hard at all 08/24/2022 [facility] [place] of Occupat ional Health - Occupational Stress [...] slept in a correction (including now)? No 08/24/2022 Comments Unknown Sex and Gender Information Value Date Recorded Sex Assigned at Female 05/03/2024 7:48 AM REPAIR TABLE OPERATOR Legal Sex Female 1:16 AM CDT [...] st Contact Info) Description 2025 2:30 PM REPAIR TABLE OPERATOR Office Visit [place] [facility] [facility] [address] [address] Melina Mclean MD [address] [place] [address] documented as of this encounter Goals Goal Patient Goal Type Associated Problems Recent Progress Patient-Stated? Author Safety Patient/family will have appropriate support at home upon discharge Lifestyle No Suyapa Godwin RN documented as of this encounter Visit Diagnoses Not on filedocumented in this encounter Care Teams Biotechnologist Relationship Specialty Start Date End Date Jan Nicole MD [address] [place] [address] PCP - General INTERNAL MEDICINE 10/18/15 Sadie Ribera MD [address] [place] [phone] CLINICAL CARDIAC ELECTROPHYSIOLOGY 10/18/15 Triston Posey MD [address] [place] [address] CARDIOVASCULAR DISEASE 10/18/15 Sangeeta Falcon AGACNP- [address] [place] [phone] [place] Chief Wheelage Clerk NURSE PRACTITIONER 08/03/16 07/06/23 Bri Ugarte MD [address] [place] [phone] Consulting Physician CARDIOVASCULAR DISEASE 05/11/2307/05 Melina Mclean MD [address] [place] [address] Consulting Physician CARDIOVASCULAR DISEASE 07/07/23 Millie Vilchis NP [address] [place] [address] [address] [place] [address] Nurse Practitioner Nurse Practitioner Acute Care 05/15/24 documented as of this encounter
--- OUTSIDE RECORDS SUMMARY | 2024-10-26 08:00 | XMS_ITS ---
Author Organization Unknown Address [address] [place] [phone] Phone Care Team Providers Care Maintenance Trainer Name Role Phone SHIRLEY OLVERA Attending Unavailable [...] Plan of Treatment US Echo With Color (33270) 02/21/2024 US Echo With Color (14031) 02/22/2025 Encounters Encounter Diagnosis Start Date Code Code Sys tem Mixed hyperlipidemia 02/21/2024 SNOMED- CT Personal Care Team Section Performer Name Performer Role Active Date Inactive Da HOLA Rodriguez PCP - Primary care physician 2024-01-06 Imaging Narrative Notes [facility] 02/25/2024 12:[address] [address] RADIOLOGY REPORT Patient Number: [id number] Patient Name: VANESSA RG Type: O/P MR Number: [id number] : 1950 Age: 73 Sex: F Room #: Admit Date: 02/21/24 Discharge Date 02/21/24 Ordering Physician: SHIRLEY OLVERA Family Physician: DEANDRA MAN Second Physician: X-Ray Number : [id number] US ECHO W/ COLOR [id number] COMPLETE:02/21/24 09:45 JDF [id number] (REASON-ECHO COMPLTE: MITRO VALVE PROSTHESIS See Scanned Image Attachment for Report Dictated By: Maikel Initials: BG Ko Date: 02/25/24 12:02 <<REPDIST>>
--- OUTSIDE RECORDS SUMMARY | 2024-10-26 08:00 | XMS_ITS | Encounter Summary ---
Author Organization [facility] Address [address] [place] [address] Care Team Providers Care Hoop Puncher Name Role Phone Jan Nicole MD Primary Care Provider [phone] Sadie Ribera MD Unavailable Triston Posey MD Unavailable [phone] Sangeeta Falcon [facility] Unavailable [phone] Bri Ugarte MD Unavailable Unavailabl e Melina Mclean MD Unavailable Millie Vilchis NP Unavailable [phone] Encounter Details Date Type Department Care Team (Late st Contact Info) Description 08/21/[address] [facility] Anesthesia [address] [place] [address] Graciela Chapman Anesthesia Record Procedure Summary Procedure [...] Sex Assigned at Female 05/03/2024 7:48 AM MOLD CHANGER Legal Sex Female 1:16 AM CDT Gender [...] st Contact Info) Description 2025 2:30 PM MOLD CHANGER Office Visit [facility] [address] [address] Melina Mclean MD [address] [place] [address] documented as of this encounter Visit Diagnoses Not on filedocumented in this encounter Care Teams Hoop Puncher Relationship Specialty Start Date End Date Jan Nicole MD [address] [place] [address] PCP - General INTERNAL MEDICINE 10/18/15 Sadie Ribera MD [address] [place] [phone] CLINICAL CARDIAC ELECTROPHYSIOLOGY 10/18/15 Triston Posey MD [address] [place] [phone] CARDIOVASCULAR DISEASE 10/18/15 Sangeeta Falcon [facility] [address] [place] [phone] [place] Spot Worker NURSE PRACTITIONER 08/03/16 07/06/23 Bri Ugarte MD [address] [place] [phone] Consulting Physician CARDIOVASCULAR DISEASE 05/11/2307/05 Melina Mclean MD [address] [place] [address] Consulting Physician CARDIOVASCULAR DISEASE 07/07/23 Millie Vilchis NP [address] [place] [address] [address] [place] [address] Nurse Practitioner Nurse Practitioner Acute Care 05/15/24 documented as of this encounter
--- OUTSIDE RECORDS SUMMARY | 2024-10-26 08:00 | XMS_ITS | Clinical Summary ---
Author Organization [facility] Address [address] [place] [address] Care Team Providers Care Slot Key Person Name Role Phone Jan Nicole MD Primary Care Provider [phone] Sadie Ribera MD Unavailable Triston Posey MD Unavailable [phone] Melina Mclean MD Unavailable Millie Vilchis NP Unavailable [phone] Allergies No known active allergies Medications vitamin [...] 2 (two) times daily. 30 tablet 11 5 Active Active Problems Problem Noted Date Diagnosed Date History of mitral valve prosthesis 12/24/2022 Hyperlipidemia, unspecified hyperlipidemia type 12/24/2022 Tobacco abuse 12/24/2022 CAD (coronary artery disease) 09/18/2022 Rapid atrial fibrillation ([facility]) 02/11/2022 Atrial fibrillation with RVR ([facility]) 0 05/20/2022 Atypical atrial flutter ([facility]) 2018 lobsterman current use of antiarrhythmic drug Atrioventricular bloc first degree 07/31/2016 Right bundle branch block 04/24/2016 Persistent atrial fibrillation ([facility]) 10/09/2015 lobsterman current use of anticoagulant therapy 0 10/09/2015 Bifascicular block 10/09/2015 Family History Medical History Relation Comments Cancer [...] 1 55.5 Started: 1969 Smokeless Tobacco: Never Tobacco Cessation:Ready to Q uit: Not Asked; Counseling Given: Not Answered Comments:Smoked from 1970 to 2005, restarted 2018 Alcohol Use Standard [...] How often do you attend chur or episcopal services? 1 to 4 times per year 08/24/2022 Do you belong to any clubs o r organizations such as evangelical groups, unions, fraternal or athletic groups, or [...] and heating? Not hard at all 09/21/2022 [facility] - Occupational Stress [...] place to sleep or slept in a long-term (including now)? No 09/21/2022 Comments No Sex and Gender Information Value Date Recorded Sex Assigned at Female 05/03/2024 7:48 AM ACTIVE DIRECTORY ENGINEER Legal Sex Female 1:16 AM CDT Gender [...] st Contact Info) Description 2025 2:30 PM ACTIVE DIRECTORY ENGINEER Office Visit [facility] [address] [place] [address] Melina Mclean MD [address] [place] [address] Health Maintenance Due Date Last [...] Godwin RN Medical Devices Implanted Type Area Manager Book Device Identifier Shelf Expiration Date Model / Serial / Lot Valve Mitral C-E 25mm - [id number] Implanted:Qty: 1 on 09/18/2022 by Len Swanson MD at [facility] Valve Implant [place]qCI[employer]illing Values BEATRIZ [id number] 06/17/2024 [id number] / [id number] / Description:Inventory notifi ed--Danica Atricure 45 Implanted:Qty: 1 on 09/18/2022 by Len Swanson MD at [facility] [id number] 05/13/2025 / / [id number] Technis Simplicity Iol Implanted:Qty: 1 on 06/28/2024 by Concepción Horan MD at [facility] Right: Eye [id number] 01/25/2027 DCB00 / [id number] / [id number] Technis Simplicity Iol Implanted:Qty: 1 on 07/26/2024 by Concepción Horan MD at [facility] Left: Eye [id number] 09/27/2026 / [id number] / [id number] Procedures Procedure Name Priority Date/Time Associated Diagnosis Comments COLONOSCOPY Routine 06/03/2023 7:33 AM ACTIVE DIRECTORY ENGINEER from Last 3 Months or Most Recently Relevant to Health Maintenance Results * Colonoscopy (06/03/2023 7:33 AM ACTIVE DIRECTORY ENGINEER) Pedrito Mendenhall MD GI PROCEDURE ORDERABLES Final Re sult from Last 3 Months or Most Recently Relevant to Health Maintenance Insurance AET Advance Directives * Full Code (Latest Code [...] 3:41 PM 08/24/2020 2:12 PM Care Teams Slot Key Person Relationship Specialty Start Date End Date Jan Nicole MD [address] [place] [address] PCP - General INTERNAL MEDICINE 10/18/15 Sadie Ribera MD [address] [place] [phone] CLINICAL CARDIAC ELECTROPHYSIOLOGY 10/18/15 Triston Posey MD [address] [place] [phone] CARDIOVASCULAR DISEASE 10/18/15 Melina Mclean MD [address] [place] [id number] Consulting Physician CARDIOVASCULAR DISEASE 07/07/23 Millie Vilchis NP [address] [place] [address] [id number] [place] [address] Nurse Practitioner Nurse Practitioner Acute Care 05/15/24
[2024-10-26 08:50] LABS: Hematocrit 47.0 % (35.0-42.0); Hemoglobin 15.5 g/dL (11.7-13.8); Mean Corpuscular HGB Conc 33.0 g/dL (32-36); Mean Corpuscular Hemoglobin 32.4 pg (27.0-31.0); Mean Corpuscular Volume 98.1 fL (78.0-102.0); Platelet Count Result 282 K/mm3 (150-420); Red Blood Count 4.79 M/mm3 (4.20-5.40); White Blood Count 10.7 K/mm3 (4.8-10.8)
[2024-10-26 08:55] LABS: Add Urine Microscopic? YES; Appearance Urine Clear (Clear); Glucose Urine UA Negative (Negative); Leukocyte Esterase Ur 1+ (Negative); Nitrate Urine Negative (Negative); Specific Grav Ur 1.015 (1.010-1.020)
[2024-10-26 09:34] LABS: Alanine Aminotransferase 20 U/L (6-35); Albumin Level 4.1 g/dL (3.5-5.1); Alkaline Phosphatase 118 U/L (38-126); Anion Gap 3 mmol/L (4-12); Aspartate Amino Transferase 37 U/L (14-36); Bilirubin,Total 1.7 mg/dL (0.2-1.3); Blood Urea Nitrogen 20 mg/dL (7-17); CRP 1.1 mg/dL (<1.0); Calcium 9.7 mg/dL (8.4-10.2); Carbon Dioxide 29 mmol/L (22-30); Chloride 107 mmol/L (98-107); Estimated Glomerular Filt Rate 45; Glucose 106 mg/dL (65-110); Osmolality Calculated 290 mOsm/kg (285-295); Potassium 5.7 mmol/L (3.4-5.0); Sodium 139 mmol/L (137-145); Total Protein 7.1 g/dL (6.3-8.2)
[2024-10-26 09:38] LABS: NT Pro B Type Natriuretic Pept 1300 pg/mL (19.9-100)
== END 2024-10-26 07:57 | disposition home or self-care (01) ==
LOC: CHSIMG 07:57
PROVIDERS: PCP Internal Medicine; Visit Provider Internal Medicine
DX: I48.91 Unspecified atrial fibrillation (principal); I73.9 Peripheral vascular disease, unspecified; I50.9 Heart failure, unspecified
CPT/HCPCS: 36415; 80053; 81001; 83880; 85025; 85027; 86140; 93922

== ENCOUNTER 2025-01-01 08:37 | Emergency (ER) | payer MEDICARE, SELFPAY ==
--- NOTE | ~2025-01-01 | CT_ITS ---
EXAMINATION: CT brain wo teodoro, 01/01/2025 8:39 CDT HISTORY: fall COMPARISON: No comparisons available. Technique: Axial images obtained of the brain without contrast. One or more of the following dose reduction techniques were used: automated exposure control, adjustment of the mA and/or kV according to patient size, use of iterative reconstruction technique. Findings: No acute infarct or parenchymal hemorrhage. No abnormal mass or mass effect. No midline shift. No extra-axial fluid collections. No hydrocephalus. Mastoid air cells unremarkable. Sinuses and orbits unremarkable. No acute fracture. No significant facial or scalp soft tissue swelling evident. No radiopaque foreign body is seen. Impression: 1.No acute intracranial abnormality. Reviewed, dictated and finalized at location A. Impression: 1.No acute intracranial abnormality.
--- NOTE | ~2025-01-01 | CT_ITS ---
EXAMINATION: CT cervical spine wo con COMPARISON: None HISTORY: fall TECHNIQUE: Axial images were obtained through the spine without IV contrast. Coronal, sagittal reconstruction images were obtained from the axial views. CT scan performed using dose optimization techniques including the following automated exposure control; adjustment of mA and/or kV; use of iterative reconstruction technique. Automatic exposure control was used to reduce radiation dose. Permanent radiation dose record is archived to PACS. FINDINGS: The vertebral heights are intact. No fracture or subluxation. Moderate loss of disc height at C6-7 with moderate canal and foraminal stenosis. Soft tissues unremarkable. Impression: No acute abnormality. Reviewed, dictated and finalized at location A. Impression: No acute abnormality.
[2025-01-01 08:38] VITALS: BP 91/53; PULSE 74; RESP 20; TEMP 36.6; O2SAT 100
--- NOTE | 2025-01-01 08:38 | ECG_ITS ---
Test Date: 2025-01-01 08:48:51 Measurements Intervals [place] Rate: 73 P: 74 DC: 263 QRS: -76 QRSD: 174 T: 26 QT: 460 QTc: 509 Interpretive Statements SINUS RHYTHM WITH FIRST DEGREE AV BLOCK RIGHT BUNDLE BRANCH BLOCK [120+ ms QRS DURATION, UPRIGHT V1, 40+ ms S IN I/aVL/V4/V5/V6] LEFT ANTERIOR FASCICULAR BLOCK [QRS AXIS <= -45, QR IN I, RS IN II] Compared to ECG 10/23/2024 15:50:15 First degree AV block now present Atrial fibrillation no longer present Electronically Signed On 01-01-2025 14:32:11 CDT by Grabiel Hua M.D.
--- NOTE | 2025-01-01 08:40 | WC.ED.TRAUMA ---
HPI - Trauma General Chief Complaint: Fall Stated Complaint: fall Time Seen by Provider: 01/01/25 08:38 Source: patient and family Mode of arrival: wheelchair Limitations: no limitations History of Present Illness HPI narrative: 74-year-old with a history of atrial fibrillation on Eliquis was brought in by family with a complains fall. Patient states that she lost her balance and fell denies hitting head no LOC presently has no pain or complaints. complaint: fall Onset (ago): hour(s) (2) Loss of Consciousness: unsure Related Data Home Medications ?Medication ?Instructions ?Recorded ?Confirmed ?Last Taken ?Type Vitamin B-12 1 mg PO DAILY 08/23/22 11/18/22 Unknown History duloxetine 20 mg capsule,delayed 20 mg PO DAILY 08/23/22 11/18/22 Unknown History release magnesium oxide 400 mg PO BID 08/23/22 11/18/22 Unknown History aspirin 81 mg tablet,delayed 81 mg PO DAILY 11/18/22 11/18/22 Unknown History release famotidine 20 mg tablet 20 mg PO DAILY 11/18/22 11/18/22 Unknown History metoprolol tartrate 25 mg tablet 12.5 mg PO BID 11/18/22 11/18/22 Unknown History apixaban 5 mg tablet (Eliquis) mg 01/01/25 Unknown History digoxin 125 mcg (0.125 mg) tablet 01/01/25 Unknown History ferrous sulfate 325 mg (65 mg 325 mg PO DAILY 01/01/25 01/01/25 Unknown History iron) tablet Allergies Allergy/AdvReac Type Severity Reaction Status Date / Time No Known Allergies Allergy Verified 01/01/25 08:58 Review of Systems Review of Systems: All systems reviewed & are unremarkable except as noted in HPI and below Eyes: Eyes: Reports no additional eye complaints ENT: Reports system reviewed and no additional complaints, except as documented Cardiovascular: Cardiovascular: Reports no additional cardiovascular complaints Respiratory: Respiratory: Reports no additional respiratory complaints Gastrointestinal: Gastrointestinal: Reports no additional gastrointestinal complaints Musculoskeletal: Musculoskeletal: Reports no additional musculoskeletal complaints Neurologic: Reports system reviewed and no additional complaints, except as documented [facility] Past Medical History Medical History Atrial fibrillation Surgical History Surgical History H/O splenectomy Exam Narrative: GENERAL: Well-appearing, well-nourished, and in no acute distress. HEAD: Normocephalic, atraumatic. EYES: PERRLA and EOMI. ENT: Nares clear, no rhinorrhea or epistaxis. Mucous membranes moist. NECK: Supple. CHEST: Clear to auscultation. No respiratory distress. HEART: Regular rate and rhythm. No murmur heard. Normal peripheral pulses. ABDOMEN: Soft, nontender, nondistended, normal active bowel sounds. EXTREMITIES: Normal range of motion. No edema. SKIN: Warm, dry, no rash. NEURO: No focal deficits. Alert and oriented x3. PSYCH: Normal mood and affect. Course Course Emergency Course: Patient resting comfortably on the bed in no discomfort has no pain no complaints. Informed her and the family about her lab work, CT and EKG findings. Fall precautions advised can take Tylenol for pain as needed recommend follow-up with her primary doctor in the next few days. Vital Signs Vital signs: Vital Signs Temperature 36.6 C 01/01/25 08:38 Pulse Rate 74 01/01/25 08:38 Respiratory Rate 20 01/01/25 08:38 Blood Pressure 91/53 L 01/01/25 08:38 Pulse Oximetry 100 01/01/25 08:38 Oxygen Delivery Room Air 01/01/25 08:38 Temperature 36.6 C 01/01/25 08:38 Pulse Rate 74 01/01/25 08:38 Respiratory Rate 20 01/01/25 08:38 Blood Pressure 91/53 L 01/01/25 08:38 Pulse Oximetry 100 01/01/25 08:38 Oxygen Delivery Room Air 01/01/25 08:38 MDM - Trauma MDM Narrative Medical decision making narrative: 74-year-old with a history of AFib on Eliquis here with a complaint of fall unsure about head injury. Will do a CT of the head and C-spine. Her home with some lab work. Medical Records Attestation: I reviewed the patient's medical records. Lab Data Attestation: I reviewed the patient's lab results. 01/01/25 09:06 01/01/25 09:06 Labs: Lab Results 01/01/25 Range/Units 09:06 WBC 10.8 (4.8-10.8) K/mm3 RBC 4.08 L (4.20-5.40) M/mm3 Hgb 13.3 (11.7-13.8) g/dL Hct 39.7 (35.0-42.0) % MCV 97.3 (78.0-102.0) fL MCH 32.6 H (27.0-31.0) pg MCHC 33.5 (32-36) g/dL RDW 13.1 (11.6-14.4) % Plt Count 326 (150-420) K/mm3 MPV 10.3 (9.2-11.8) fl Immature Gran % (Auto) 1.2 H (0.0-0.0) % Neut % (Auto) 49.0 L (50.0-70.0) % Lymph % (Auto) 37.5 (18.0-42.0) % Bracken % (Auto) 9.5 (2.0-11.0) % Eos % (Auto) 1.8 (1.0-6.0) % Baso % (Auto) 1.0 (0.0-1.0) % Lymph # (Auto) 4.04 (1.10-4.50) K/mm3 Bracken # (Auto) 1.02 H (0.10-0.90) K/mm3 Eos # (Auto) 0.19 (0.02-0.50) K/mm3 Baso # (Auto) 0.11 H (0.00-0.10) K/mm3 Abs Immat Gran (auto) 0.13 H (0.00-0.00) K/mm3 Absolute Neuts (auto) 5.28 (1.70-7.20) K/mm3 Absolute Nucleated RBC 0.00 (0.00-0.00) K/mm3 Nucleated RBC % 0.0 (0-0.0) % PT 10.3 (9.50-12.1) Seconds INR 0.9 Sodium Pending Potassium Pending Chloride Pending Carbon Dioxide Pending Anion Gap Pending BUN Pending Creatinine Pending Estim Creat Clear Calc Pending Estimated GFR Pending Glucose Pending Calculated Osmolality Pending Calcium Pending Total Bilirubin Pending AST Pending ALT Pending Alkaline Phosphatase Pending Total Protein Pending Albumin Pending Imaging Data Radiologist's impression: ITS Impressions Head CT 01/01/25 09:34 Impression: 1.No acute intracranial abnormality. Cervical Spine CT 01/01/25 09:35 Impression: No acute abnormality. ECG Data EKG #1: ECG completion date: 01/01/25 ECG completion time: 08:48 EKG Interpretation: not applicable, normal rate (73), bradycardia, tachycardia, atrial fibrillation, atrial flutter, junctional, SVT, ventricular tachycardia, PVCs, PACs, non-specific ST changes, ST depression, ST elevation, widened QRS, LBBB, normal QT, prolonged QT, left axis, right axis, NL axis, other and no acute changes ( First-degree AV block) Discharge Plan Discharge Clinical Impression: Minor closed head injury Fall Qualifiers: Encounter type: initial encounter Qualified Code(s): W19.XXXA - Unspecified fall, initial encounter Patient Disposition: Home Condition: Stable Instructions: Head Injury (ED), Contusion in Adults (ED) Additional Instructions: fall precautions can take Tylenol ibuprofen for pain today. hold Eliquis For 1 day Patient Language: Lao Prescriptions: No Action duloxetine 20 mg capsule,delayed release(DR/EC) 20 mg PO DAILY Vitamin B-12 1 mg PO DAILY magnesium oxide 400 mg PO BID aspirin [Adult Aspirin EC Low Strength] 81 mg Tablet,Delayed Release (Dr/Ec) 81 mg PO DAILY famotidine 20 mg Tablet 20 mg PO DAILY metoprolol tartrate 25 mg Tablet 12.5 mg PO BID digoxin 125 mcg (0.125 mg) tablet Eliquis 5 mg tablet ferrous sulfate 325 mg (65 mg iron) tablet 325 mg PO DAILY Follow-up/Referrals: Jan Nicole MD [Primary Care Provider, Internal Medicine] Time of Disposition: 09:50
--- NOTE | 2025-01-01 09:05 | PC.NURSE ---
Pt taken to radiology for scans
--- NOTE | 2025-01-01 09:20 | PC.NURSE ---
Pt returns to room from radiology
[2025-01-01 09:23] LABS: Hematocrit 39.7 % (35.0-42.0); Hemoglobin 13.3 g/dL (11.7-13.8); Immature Granulocyte Percent A 1.2 % (0.0-0.0); Lymphocytes Absolute Auto 4.04 K/mm3 (1.10-4.50); Mean Corpuscular HGB Conc 33.5 g/dL (32-36); Mean Corpuscular Hemoglobin 32.6 pg (27.0-31.0); Mean Corpuscular Volume 97.3 fL (78.0-102.0); Nucleated Red Blood Cells Absolute Auto 0.00 K/mm3 (0.00-0.00); Nucleated Red Blood Cells Perc 0.0 % (0-0.0); Platelet Count Result 326 K/mm3 (150-420); Red Blood Count 4.08 M/mm3 (4.20-5.40); White Blood Count 10.8 K/mm3 (4.8-10.8)
[2025-01-01 09:35] LABS: Alanine Aminotransferase 19 U/L (6-35); Albumin Level 4.1 g/dL (3.5-5.1); Alkaline Phosphatase 165 U/L (38-126); Anion Gap 13 mmol/L (4-12); Aspartate Amino Transferase 36 U/L (14-36); Bilirubin,Total 0.7 mg/dL (0.2-1.3); Blood Urea Nitrogen 13 mg/dL (7-17); Calcium 9.2 mg/dL (8.4-10.2); Carbon Dioxide 25 mmol/L (22-30); Chloride 102 mmol/L (98-107); Estimated CRCL calculation 30 ml/min; Estimated Glomerular Filt Rate 41; Glucose 104 mg/dL (65-110); Osmolality Calculated 290 mOsm/kg (285-295); Potassium 3.9 mmol/L (3.4-5.0); Sodium 140 mmol/L (137-145); Total Protein 8.1 g/dL (6.3-8.2)
[2025-01-01 09:36] LABS: INR 0.9; Prothrombin Time 10.3 Seconds (9.50-12.1)
== END 2025-01-01 10:05 | disposition home or self-care (01) ==
PROVIDERS: Emergency Provider Family Medicine; PCP Internal Medicine
DX: S09.90XA Unspecified injury of head, initial encounter (principal); I48.91 Unspecified atrial fibrillation; Z04.3 Encounter for examination and observation following other accident; Z79.01 Long term (current) use of anticoagulants; Z79.899 Other long term (current) drug therapy; W19.XXXA Unspecified fall, initial encounter
CPT/HCPCS: 36415; 70450; 72125; 80053; 85025; 85610; 93005; 99284

== ENCOUNTER 2025-02-16 12:49 | Outpatient (CLI) | payer MEDICARE, SELFPAY ==
--- NOTE | ~2025-02-16 | CT_ITS ---
EXAMINATION:CT lung screening DATE: 02/16/2025 13:04 INDICATION: Screening TECHNIQUE: Computed tomography (CT) of the chest was performed without intravenous contrast. The dose-length product (DLP) was 71.84 mGy-cm. COMPARISON: January 08, 2011 FINDINGS: Patient has undergone mitral valvular prosthesis placement, metallic devices on the left superolateral margin of the pericardium. Central pulmonary arteries are slightly enlarged which may represent underlying pulmonary arterial hypertension.. Sternal retention wires appear intact. Lungs are clear with no suspicious lung nodules or masses. No consolidation effusion or pneumothorax. Sagittal and large airways are patent. Diffuse degenerative changes of the bones otherwise appear intact. No acute process seen in the visualized portions of the upper abdomen. IMPRESSION: 1. No suspicious lung nodules. LUNG RADS 1. Recommend follow-up chest CT in 12 months for continued surveillance. 2. Several chronic findings as above. Reviewed, dictated and finalized at location A. 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
== END 2025-02-16 12:50 | disposition home or self-care (01) ==
LOC: CHSIMG 12:51
PROVIDERS: PCP Internal Medicine; Visit Provider Internal Medicine
DX: Z12.2 Encounter for screening for malignant neoplasm of respiratory organs (principal); Z87.891 Personal history of nicotine dependence
CPT/HCPCS: 71271